=== PATIENT | female | born 1955 | race Caucasian/White ===

== ENCOUNTER 2018-08-14 12:54 | Outpatient (REF) | payer BC, SELFPAY ==
[2018-08-14 19:27] LABS: Anion Gap 9.3 mmol/L (3-11); BUN 13 mg/dL (7-18); CO2 29.7 mmol/L (21.0-32.0); CREATININE 0.94 mg/dL (0.55-1.02); Calcium 9.4 mg/dL (8.5-10.1); Chloride 101 mmol/L (98-107); Cholesterol 291 mg/dL (50-200); Glucose 92 mg/dL (70-100); HDL Cholesterol 48 mg/dL (40-60); LDL CHOLESTEROL 210 mg/dL (<100); Potassium 4.1 mmol/L (3.5-5.1); Sodium 140 mmol/L (136-145); Triglyceride 184 mg/dL (30-150)
== END 2018-08-14 13:14 ==
LOC: LBN 12:54
PROVIDERS: PCP Internal Medicine; Visit Provider Internal Medicine
DX: I10 Essential (primary) hypertension (principal); E78.5 Hyperlipidemia, unspecified
CPT/HCPCS: 80048; 80061; 83721

== ENCOUNTER 2021-06-09 01:54 | Outpatient (CLI) | payer MEDICARE, SELFPAY ==
--- NOTE | 2021-06-09 07:30 | DI.CT_ITS ---
Exam(s) CT ABDOMEN PELVIS W EXAM: CT ABDOMEN PELVIS W CLINICAL HISTORY: r/o diverticulitis,CHRONIC ABD PAIN,RECTAL BLEEDING,FREQ BOWEL MOVEMENTS TECHNIQUE: Imaging Protocol: Axial computed tomography images with coronal and sagittal reformatted images were created and reviewed CONTRAST MATERIAL: Intravenous: Omnipaque 350 Contrast volume:100 mL Oral: Yes COMPARISON: No exams were available for comparison FINDINGS: ABDOMEN: Lung Bases: There is a 0.5 cm noncalcified right lower lobe pulmonary nodule. Liver: There is fatty infiltration of the liver. There is a 0.8 x 1.0 hypodensity in the right lobe of the liver adjacent to the IVC. Portal, Superior Mesenteric, and Splenic Veins: Unremarkable. Gallbladder and Biliary Tract: No radiodense calculus or dilation. Pancreas: Normal density, no abnormal calcifications or inflammatory process. Spleen: Normal. Adrenals: No masses seen. Kidneys: Normal size, contour and axis. No radiodense stones or obstructive uropathy. No masses seen. Abdominal Aorta: Abdominal portion non-dilated. Atherosclerosis. Bowel: No evidence of bowel obstruction. Appendix is unremarkable. Diverticulosis of the sigmoid col on, but no evidence of diverticulitis. There is a moderate amount of stool throughout the colon. Th ere is concentric thickening of the wall of the distal stomach. Peritoneal Cavity: No ascites, collection or mesenteric inflammatory response. No free air. Lymph Nodes: Within normal limits. Bones: Within normal limits for the patient's age. Soft Tissues: Unremarkable. PELVIS: Bladder: The urinary bladder is not distended limiting evaluation. Reproductive Organs: Status post hysterectomy. Lymph Nodes: Within normal limits. Bones: Within normal limits for the patient's age. IMPRESSION: 1. Concentric thickening seen in the distal stomach. This may be due to underdistention, but inflamm atory/infectious process or mass cannot be excluded. Upper endoscopy or barium GI examination is rec ommended. 2. 0.8 x 1.0 cm hypodensity in the right lobe of the liver. This is nonspecific. Hepatic MRI is rec ommended for further evaluation. 3. 0.5 cm noncalcified right lower lobe pulmonary nodule. In low risk patients, no follow-up is valentin mmended. In high risk patients (history of smoking or other risk factors), a CT scan in 12 months is recommended for re-evaluation. RADIATION DOSE DELIVERED: 1,581.15mGy.cm Total DLP DATA REPOSITORY: All CT scans at this facility are submitted to the National Radiology Data Registry (NRDR) Dose Index Registry (DIR) with the [employer] (ACR). RADIATION OPTIMIZATION: All CT scans at this facility use at least one of these dose optimization te chniques: automated exposure control; mA and/or kV adjustment per patient size (includes targeted exa ms where dose is matched to clinical indication); or iterative reconstruction.
[2021-06-09] MEDS: Normal Saline - Diluent 50 ML VIAL IV (10:57)
[2021-06-09] MEDS: Omnipaque 350 MG/ML 100 ML BTL IJ (10:57)
[2021-06-09] MEDS: Breeza Beverage 473 ML BTL PO ×2 (10:58→10:59)
[2021-06-09] MEDS: Omnipaque 350 MG/ML 50 ML BTL PO (10:59)
== END 2021-06-09 02:14 ==
PROVIDERS: PCP Student in an Organized Health Care Education/Training Program; Visit Provider Student in an Organized Health Care Education/Training Program
DX: K62.5 Hemorrhage of anus and rectum (principal); R10.9 Unspecified abdominal pain; R19.4 Change in bowel habit; R91.1 Solitary pulmonary nodule; R93.5 Abnormal findings on diagnostic imaging of other abdominal regions, including retroperitoneum
CPT/HCPCS: 74177; J3490; Q9967

== ENCOUNTER 2021-07-22 11:51 | Outpatient (REF) | payer MEDICARE, SELFPAY ==
[2021-07-22 19:49] LABS: Abs Immature Grans 0.05 10^3/uL (0.0-0.06); Absolute Basophil Count 0.04 10^3/uL (0.0-0.2); Absolute Eosinophil Count 0.15 10^3/uL (0.0-0.7); Absolute Lymphocyte Count 2.04 10^3/uL (1.2-3.4); Absolute Monocyte Count 0.73 10^3/uL (0.1-0.8); Absolute Neutrophil Count 7.55 10^3/uL (1.2-6.7); Basophils % 0.4; Eosinophils % 1.4; HCT 37.9 % (36.0-46.0); HGB 11.9 g/dL (11.2-15.7); Immature Grans % 0.5; Lymphocytes % 19.3; MCH 29.2 pg (27.0-33.0); MCHC 31.4 % (32.0-36.0); MCV 92.9 fL (80-95); MPV 11.2 fL (8.0-11.0); Monocytes % 6.9; Neutrophils % 71.5; Nucleated RBC 0 %; Platelet Count 342 10^3/uL (130-400); RBC 4.08 10^6/uL (3.93-5.22); RDW 15.6 % (11.7-14.6); RDW-SD 53.1 fL; WBC 10.56 10^3/uL (4.4-10.8)
[2021-07-22 20:16] LABS: Iron 41 ug/dL (50-170); Total Iron Binding Capacity 487 ug/dL (250-450); Transferrin Sat 8 % (15-50)
[2021-07-22 20:27] LABS: ALT 57 U/L (14-59); AST 33 U/L (15-37); Albumin 3.7 g/dL (3.4-5.0); Alkaline Phosphatase 113 U/L (46-116); Anion Gap 6.2 mmol/L (3-11); BUN 14 mg/dL (7-18); Bilirubin, Total 0.3 mg/dL (0.2-1.0); CO2 32.8 mmol/L (21.0-32.0); CREATININE 0.8 mg/dL (0.55-1.02); Calcium 9.1 mg/dL (8.5-10.1); Chloride 102 mmol/L (98-107); Ferritin 23 ng/mL (8-252); Glucose 88 mg/dL (74-106); Magnesium 1.7 mg/dL (1.8-2.4); Potassium 4.3 mmol/L (3.5-5.1); Sodium 141 mmol/L (136-145); TSH 2.08 uIU/mL (0.36-3.74); Total Protein 7.6 g/dL (6.4-8.2)
== END 2021-07-22 11:52 | disposition home or self-care (01) ==
LOC: LBN 11:51
PROVIDERS: PCP Student in an Organized Health Care Education/Training Program; Visit Provider Student in an Organized Health Care Education/Training Program
DX: I10 Essential (primary) hypertension; K21.00 Gastro-esophageal reflux disease with esophagitis, without bleeding; R73.01 Impaired fasting glucose; G25.81 Restless legs syndrome; F41.9 Anxiety disorder, unspecified; R10.9 Unspecified abdominal pain; K76.0 Fatty (change of) liver, not elsewhere classified
CPT/HCPCS: 80053; 82728; 83540; 83550; 83735; 84443; 85025

== ENCOUNTER 2021-08-08 17:19 | Outpatient (REF) | payer MEDICARE, SELFPAY ==
[2021-08-09 13:15] LABS: COVID-19 RT-PCR UVMMC Result Negative (Negative)
== END 2021-08-08 17:20 | disposition home or self-care (01) ==
LOC: LBN 17:19
PROVIDERS: PCP Student in an Organized Health Care Education/Training Program; Visit Provider Physician Assistant
DX: Z20.822 Contact with and (suspected) exposure to COVID-19 (principal)
CPT/HCPCS: U0003; U0005

== ENCOUNTER → 2021-12-28 01:58 | Outpatient (CLI) | payer MEDICARE, SELFPAY ==
--- NOTE | 2021-12-28 07:15 | DI.RAD_ITS ---
Exam(s) XR CHEST 2V PA LATERAL EXAM: XR CHEST 2V PA LATERAL CLINICAL HISTORY: worsening pain,SOB,R06.02 TECHNIQUE: 2D digital imaging was performed. COMPARISON: No exams were available for comparison FINDINGS: MEDIASTINUM: Normal. HEART: Normal. PULMONARY VASCULATURE: Normal. LUNGS: Clear. PLEURAL SPACE: No pleural effusion or pneumothorax. BONE:Unremarkable for age. IMPRESSION: No acute abnormality. DATA REPOSITORY: RADIATION DOSE DELIVERED:
== END ==
PROVIDERS: PCP Student in an Organized Health Care Education/Training Program; Visit Provider Student in an Organized Health Care Education/Training Program
DX: R06.02 Shortness of breath (principal)
CPT/HCPCS: 71046

== ENCOUNTER 2021-12-28 04:58 | Outpatient (CLI) | payer MEDICARE, SELFPAY ==
[2021-12-28 13:07] LABS: HCT 37.9 % (36.0-46.0); MCH 28.8 pg (27.0-33.0); MCHC 31.7 % (32.0-36.0); MCV 91.1 fL (80-95); MPV 9.7 fL (8.0-11.0); Platelet Count 291 10^3/uL (130-400); RBC 4.16 10^6/uL (3.93-5.22); RDW-SD 53.3 fL; WBC 9.33 10^3/uL (4.4-10.8)
[2021-12-28 14:31] LABS: Iron 54 ug/dL (50-170); Total Iron Binding Capacity 466 ug/dL (250-450); Transferrin Sat 12 % (15-50)
[2021-12-28 15:01] LABS: Anion Gap 7.3 mmol/L (3-11); BUN 12 mg/dL (7-18); CO2 29.7 mmol/L (21.0-32.0); CREATININE 0.8 mg/dL (0.55-1.02); Chloride 102 mmol/L (98-107); Ferritin 28 ng/mL (8-252); Glucose 115 mg/dL (74-106); Potassium 3.7 mmol/L (3.5-5.1); Sodium 139 mmol/L (136-145)
== END 2021-12-28 04:59 | disposition home or self-care (01) ==
PROVIDERS: PCP Student in an Organized Health Care Education/Training Program; Visit Provider Student in an Organized Health Care Education/Training Program
DX: Z79.1 Long term (current) use of non-steroidal anti-inflammatories (NSAID); E61.1 Iron deficiency; Z87.19 Personal history of other diseases of the digestive system
CPT/HCPCS: 36415; 80048; 85027; 82728; 83540; 83550

== ENCOUNTER 2022-01-26 02:51 | Outpatient (RCR) | payer MEDICARE, SELFPAY ==
[2022-01-19] MEDS: Normal Saline Flush 10 ML SYR IVP (08:06)
[2022-01-19] MEDS: IRON SUCROSE COMPLEX 200 MG in Normal Saline 100 ML 440 MG IVPB (08:14)
[2022-01-26] MEDS: Normal Saline Flush 10 ML SYR IVP (08:06)
[2022-01-26] MEDS: IRON SUCROSE COMPLEX 200 MG in Normal Saline 100 ML 440 MG IVPB (08:28)
== END 2022-01-31 23:59 | disposition home or self-care (01) ==
LOC: INF 02:51
PROVIDERS: PCP Student in an Organized Health Care Education/Training Program; Visit Provider Student in an Organized Health Care Education/Training Program
DX: R79.0 Abnormal level of blood mineral (principal); R06.02 Shortness of breath; Z87.19 Personal history of other diseases of the digestive system; G25.81 Restless legs syndrome
CPT/HCPCS: 96365; J1756

== ENCOUNTER 2022-02-16 03:40 | Outpatient (RCR) | payer MEDICARE, SELFPAY ==
[2022-02-02] MEDS: IRON SUCROSE COMPLEX 200 MG in Normal Saline 100 ML 440 MG IVPB (08:09)
[2022-02-02] MEDS: Normal Saline Flush 10 ML SYR IVP (08:09)
[2022-02-09] MEDS: IRON SUCROSE COMPLEX 200 MG in Normal Saline 100 ML 440 MG IVPB (08:16)
[2022-02-09] MEDS: Normal Saline Flush 10 ML SYR IVP (08:16)
[2022-02-16] MEDS: Normal Saline Flush 10 ML SYR IVP (08:06)
[2022-02-16] MEDS: IRON SUCROSE COMPLEX 200 MG in Normal Saline 100 ML 440 MG IVPB (08:07)
== END 2022-03-02 23:59 | disposition home or self-care (01) ==
LOC: INF 03:40
PROVIDERS: PCP Student in an Organized Health Care Education/Training Program; Visit Provider Student in an Organized Health Care Education/Training Program
DX: R79.0 Abnormal level of blood mineral (principal); R79.89 Other specified abnormal findings of blood chemistry; R06.02 Shortness of breath; Z87.19 Personal history of other diseases of the digestive system; G25.81 Restless legs syndrome
CPT/HCPCS: 96365; J1756

== ENCOUNTER 2022-03-10 15:45 | Outpatient (CLI) | payer MEDICARE, SELFPAY ==
--- NOTE | 2022-03-10 11:00 | DI.RAD_ITS ---
Exam(s) XR CERVICAL SP COMP W FLEX/EXT EXAM: XR CERVICAL SP COMP W FLEX/EXT CLINICAL HISTORY: Neck pain/stiffness, torticollis, myalgia, M54.2, M43.6, M62.838, M79.18. TECHNIQUE: 2D digital imaging was performed. Views COMPARISON: No exams were available for comparison FINDINGS: There is no evidence of fracture or subluxation. There are prominent facet degenerative changes thro ughout which cause neural foraminal encroachment on the left at C3-4 and C4-5 and on the right side a t C3-4, C5-6 and C6-7. Degenerative changes are also seen at C1-2. There is mild narrowing of the C 6 7 disc space. IMPRESSION: advanced facet degenerative changes causing neural foraminal encroachment. DATA REPOSITORY: RADIATION DOSE DELIVERED:
--- NOTE | 2022-03-10 11:00 | DI.RAD_ITS ---
Exam(s) XR SHOULDER RT COMPLETE 2+V EXAM: XR SHOULDER RT COMPLETE 2+V CLINICAL HISTORY: Muscle spasm, rt deltoid pain, M62.838, M79.18. Evaluate joint spacing. TECHNIQUE: 2D digital imaging was performed. Five views. COMPARISON: No exams were available for comparison FINDINGS: BONES: No acute fracture is present. No bony destructive lesion is seen. JOINTS: No dislocation present. Mild spurring at the glenoid and AC joint. SOFT TISSUE: Normal. Calcifications project near the greater tuberosity. IMPRESSION: Mild degenerative changes. Question of calcific tendinosis. DATA REPOSITORY: RADIATION DOSE DELIVERED:
== END 2022-03-10 16:05 ==
LOC: DI 15:47
PROVIDERS: PCP Student in an Organized Health Care Education/Training Program; Visit Provider Student in an Organized Health Care Education/Training Program
DX: M19.011 Primary osteoarthritis, right shoulder (principal); M47.812 Spondylosis without myelopathy or radiculopathy, cervical region; M43.6 Torticollis; M79.18 Myalgia, other site
CPT/HCPCS: 72052; 73030

== ENCOUNTER 2022-03-16 02:40 | Outpatient (CLI) | payer MEDICARE, SELFPAY ==
[2022-03-16 15:57] LABS: Iron 61 ug/dL (50-170); Total Iron Binding Capacity 416 ug/dL (250-450); Transferrin Sat 15 % (15-50)
== END 2022-03-16 02:41 | disposition home or self-care (01) ==
LOC: LBO 02:41
PROVIDERS: PCP Student in an Organized Health Care Education/Training Program; Referring Provider Student in an Organized Health Care Education/Training Program; Visit Provider Student in an Organized Health Care Education/Training Program
DX: R79.0 Abnormal level of blood mineral (principal)
CPT/HCPCS: 36415; 83540; 83550

== ENCOUNTER 2022-04-10 02:36 | Outpatient (CLI) | payer MEDICARE, SELFPAY ==
--- NOTE | 2022-04-10 06:45 | DI.MRI_ITS ---
Exam(s) MR CERVICAL SPINE WO EXAM: MR CERVICAL SPINE WO CLINICAL HISTORY: evaluate foraminal stenosis 2' radiculopathy sympTOMS,CERV ARTHRITIS,NUMBNE TECHNIQUE: Multiplanar multisequence MRI of the cervical spine was performed without intravenous con trast. COMPARISON: CR XR CERVICAL SP COMP W FLEX/EXT from 03/10/2022 FINDINGS: CERVICOMEDULLARY JUNCTION: Intact with no evidence of cerebellar tonsillar ectopia. No obvious abnor mality of the odontoid process. No evidence of Chiari 1 malformation. CERVICAL SPINAL CORD: There is no abnormal signal in the cervical spinal cord and no evidence of foca l cord atrophy nor focal cord swelling. OSSEOUS:There are no cervical fractures evident. No significant osseous lesions in the cervical vert ebrae. There appears to be straightening of the cervical spine which is probably due to muscle spasm . INDIVIDUAL LEVELS: C2-3: No disc herniation nor central canal stenosis. No foraminal stenosis. There is facet joint fus ion evident on the right side at this level. Mild right-sided foraminal stenosis noted. No foramina l stenosis on the left side. C3-4: Normal disc height. Very mild degenerative anterolisthesis of C 3 upon C4.This is related to a dvanced bilateral facet arthropathy. There is mild subligamentous central annular bulging at this le miranda without significant central canal stenosis. There is, however, moderate bilateral foraminal sten osis, mostly related to the bilateral facet arthropathy. C4-5: Preserved disc height. No disc herniation. No central canal stenosis. On the left side there is minimal facet arthropathy and no foraminal stenosis. On the right side there is prominent facet arthropathy and mild foraminal stenosis. C5-6: Mildly decreased disc height. Mild annular bulging. Small bilateral Luschka joint osteophyte- disc complexes. No central canal stenosis. There is significant facet arthropathy on the left side ; milder facet arthropathy on the right side. Mild foraminal stenosis on the left side. Minimal for aminal stenosis on the right side. C6-7: Chronic decreased disc height and signal. Anterior osteophytes. There is a central subligamen tous disc protrusion. This indents the thecal sac and contacts the anterior aspect of the spinal cor d at this level. There does not appear to be myelitis signal within the cord at this level. There a re bilateral Luschka joint-disc complex is at this level. On the left side there appears to be a lat eral left disc protrusion at the level of the exiting left neural foramen which extends posteriorly 2 millimeters and is approximately 4 millimeters wide. This is best seen on the sagittal T2 images. This, together with some degenerative change in the facet joint, results in moderate left-sided ortiz inal stenosis at this level. There is mild foraminal stenosis on the opposite-right side. C7-T1: No disc herniation nor central canal stenosis. No facet arthropathy.No foraminal stenosis. IMPRESSION: 1. Multilevel findings as described individually above. Main finding is at C6-7 level where common a ddition to chronic disc space narrowing and bilateral Luschka joint-disc complexes, there also appear s to be a lateral left disc protrusion at the level of the exiting left neural foramen, resulting in element of left-sided foraminal stenosis. At this level there is also a central subligamentous small disc protrusion which does indent the anterior aspect of the thecal sac and contacts the anterior as pect of the cervical spinal cord, however, there is no evidence of myelitis signal within the cord. Also no evidence of focal cord swelling nor focal cord atrophy. 2. Asymmetric multilevel foraminal stenosis as described above. 3. No evidence of prominent central spinal canal stenosis. DATA REPOSITORY:
== END 2022-04-10 02:56 ==
LOC: DI 02:36
PROVIDERS: PCP Student in an Organized Health Care Education/Training Program; Visit Provider Student in an Organized Health Care Education/Training Program
DX: M47.812 Spondylosis without myelopathy or radiculopathy, cervical region (principal); R20.0 Anesthesia of skin; R20.2 Paresthesia of skin; M48.02 Spinal stenosis, cervical region
CPT/HCPCS: 72141

== ENCOUNTER → 2022-04-12 09:33 | Outpatient (BNVA) | payer MEDICARE, SELFPAY | PROVIDERS: PCP Student in an Organized Health Care Education/Training Program; Referring Provider Student in an Organized Health Care Education/Training Program; Visit Provider Student in an Organized Health Care Education/Training Program | DX: M75.101 Unspecified rotator cuff tear or rupture of right shoulder, not specified as traumatic (principal); M75.21 Bicipital tendinitis, right shoulder | CPT/HCPCS: 99204 ==

== ENCOUNTER 2022-04-28 00:25 | Outpatient (CLI) | payer MEDICARE, SELFPAY ==
--- NOTE | 2022-04-28 07:00 | DI.MRI_ITS ---
Exam(s) MR UPPER JOINT RT WO EXAM: MR UPPER JOINT RT WO CLINICAL HISTORY: WEAKNESS, pain, rt rotator cuff tear,m75.101 TECHNIQUE: Multiplanar multisequence MRI of the shoulder was performed. COMPARISON: CR XR SHOULDER RT COMPLETE 2+V from 03/10/2022 FINDINGS: Images are significantly degraded by motion artifact, particularly the sagittal images. MARROW:There is no evidence of fracture, Hill-Sachs deformity, nor ominous osseous lesions. ROTATOR CUFF MECHANISM: AC JOINT/ACROMIUM: There are significant degenerative changes in the AC joint, including degenerative subarticular cysts on both sides the joint and somewhat perched feet undersurface tissue causing bhumika e impingement.. There is no evidence of os acromiale. Supraspinatus: There is some tendinitis signal. Focus of partial thickness tearing on the articular surface side at the level of the greater tuberosity insertion. No retraction musculotendinous juncti on. No fluid in the subacromial-subdeltoid bursa Infraspinatus: Also exhibits partial-thickness tearing on the articular surface side. Teres Minor: Intact. No evidence of tear nor muscle atrophy. Subscapularis/anterior cuff: Some tendinitis signal. BICEPS TENDON: Normally position in the intertubercular groove. No evidence of tear. No prominent tenosynovitis. LABRUM: Labrum is difficult to assess because of motion artifact. However, there are no obvious labr al tears and no evidence of paralabral cyst. No evidence of bony Bankart lesion. GLENOHUMERAL JOINT: No joint effusion nor obvious loose intra-articular bodies. No obvious prominent chondral defects. No osteophytes. No degenerative subarticular cysts. Inferior glenohumeral ligame nt appears intact. QUADRILATERAL SPACE: No evidence of mass in the region of the axillary nerve and dorsal circumflex hu meral vessels. Visualized triceps muscle at this level appears unremarkable. IMPRESSION: 1. Less than optimal study due to the amount of motion artifact. 2. There appear to be partial-thickness tears of both the supraspinatus and infraspinatus at the inse rtional aspect on the greater tuberosity. No obvious full-thickness tear. No retraction musculotend inous junction. No prominent muscle atrophy. There is also some tendinitis signal in the anterior c uff-subscapularis. 3. Significant degenerative changes in the AC joint. 4. No biceps tendon tear nor obvious labral tears, realized limitations of the study due to the amou nt of motion artifact. DATA REPOSITORY:
== END 2022-04-28 00:45 ==
LOC: DI 00:25
PROVIDERS: PCP Student in an Organized Health Care Education/Training Program; Visit Provider Student in an Organized Health Care Education/Training Program
DX: M19.011 Primary osteoarthritis, right shoulder (principal)
CPT/HCPCS: 73221

== ENCOUNTER → 2022-05-10 10:01 | Outpatient (BNVA) | payer MEDICARE, SELFPAY | PROVIDERS: PCP Student in an Organized Health Care Education/Training Program; Referring Provider Student in an Organized Health Care Education/Training Program; Visit Provider Student in an Organized Health Care Education/Training Program | DX: E66.01 Morbid (severe) obesity due to excess calories (principal); Z68.43 Body mass index [BMI] 50.0-59.9, adult; M75.101 Unspecified rotator cuff tear or rupture of right shoulder, not specified as traumatic; M75.21 Bicipital tendinitis, right shoulder | CPT/HCPCS: 99213 ==

== ENCOUNTER 2022-07-03 01:51 | Outpatient (CLI) | payer MEDICARE, SELFPAY ==
--- NOTE | 2022-07-03 06:30 | DI.CT_ITS ---
Exam(s) CT CHEST WO EXAM: CT CHEST WO CLINICAL HISTORY: evaluate nodule,ABNL FINDING ON IMAGING, R93.89,R91.1 TECHNIQUE: Imaging Protocol: Axial computed tomography images with coronal and sagittal reformatted images were created and reviewed CONTRAST MATERIAL: Noncontrast COMPARISON: CT CT ABDOMEN PELVIS W from 06/09/2021 FINDINGS: Tracheobronchial tree: No bronchiectasis or mucous plugging. Mediastinum and Wendy: No dominant adenopathy or fluid collection. Pulmonary parenchyma: Stable 5 millimeter nodule inferior right lower lobe. No consolidation. Minima l emphysematous changes. Pleura: No effusion or pneumothorax. Heart: The heart is not dilated. Mild coronary artery calcifications are seen. Aorta: Thoracic aorta non-dilated. Mild atherosclerotic changes Upper abdomen: Hepatic steatosis. Lymph nodes: Within normal limits. Bones: Milddegenerative changes. Soft tissues: Unremarkable. IMPRESSION: Stable 5 millimeter nodule right lower lobe. If the patient is at high risk for lung cancer, a low-dose screening chest CT could be considered in 12 months. RADIATION DOSE DELIVERED: Total DLP DATA REPOSITORY: All CT scans at this facility are submitted to the National Radiology Data Registry (NRDR) Dose Index Registry (DIR) with the [employer] (ACR). RADIATION OPTIMIZATION: All CT scans at this facility use at least one of these dose optimization te chniques: automated exposure control; mA and/or kV adjustment per patient size (includes targeted exa ms where dose is matched to clinical indication); or iterative reconstruction.
== END 2022-07-03 02:11 ==
LOC: DI 01:52
PROVIDERS: PCP Student in an Organized Health Care Education/Training Program; Visit Provider Student in an Organized Health Care Education/Training Program
DX: R91.1 Solitary pulmonary nodule (principal); R93.89 Abnormal findings on diagnostic imaging of other specified body structures; J43.8 Other emphysema
CPT/HCPCS: 71250

== ENCOUNTER 2023-01-18 02:52 | Outpatient (CLI) | payer MEDICARE, SELFPAY ==
[2023-01-18 07:38] LABS: HGB 14.6 g/dL (11.2-15.7)
[2023-01-18 08:56] LABS: ALT 58 U/L (14-59); AST 35 U/L (15-37); Albumin 3.7 g/dL (3.4-5.0); Alkaline Phosphatase 104 U/L (46-116); Anion Gap 11.2 mmol/L (3-11); BUN 14 mg/dL (7-18); Bilirubin, Total 0.4 mg/dL (0.2-1.0); CO2 26.8 mmol/L (21.0-32.0); Calcium 9.1 mg/dL (8.5-10.1); Calculated LDL 131 mg/dL (<100); Chloride 103 mmol/L (98-107); Cholesterol 203 mg/dL (<200); Estimated GFR 61.36 (mL/min/1.73m2); Ferritin 92 ng/mL (8-252); Glucose 134 mg/dL (74-106); HDL Cholesterol 46 mg/dL (40-60); Magnesium 1.6 mg/dL (1.8-2.4); Potassium 3.9 mmol/L (3.5-5.1); Sodium 141 mmol/L (136-145); Total Protein 8.2 g/dL (6.4-8.2); Triglyceride 130 mg/dL (<150)
[2023-01-18 09:09] LABS: Hemoglobin A1C 6.7 % (<5.7)
== END 2023-01-18 02:53 | disposition home or self-care (01) ==
PROVIDERS: PCP Student in an Organized Health Care Education/Training Program; Visit Provider Student in an Organized Health Care Education/Training Program
DX: I10 Essential (primary) hypertension (principal); E78.2 Mixed hyperlipidemia; K76.0 Fatty (change of) liver, not elsewhere classified; R73.09 Other abnormal glucose; R60.0 Localized edema
CPT/HCPCS: 36415; 80053; 80061; 82728; 83036; 83735; 85018

== ENCOUNTER 2023-03-30 | Outpatient (CLI) | payer MEDICARE, SELFPAY ==
--- NOTE | 2023-03-30 07:00 | DI.US_ITS ---
APPROVED REPORT EXAM: Comprehensive 2D, Doppler, and color-flow Echocardiogram Patient Location: Out-Patient Poultry Scalder: Esequiel Ugalde RDCS Other Information Study Quality: Adequate Conclusion Normal left ventricular wall thickness and chamber size. Ejection fraction is 55 to 60%. Wall motio n is normal Normal right ventricular size and systolic function Both atria are normal in size Aortic valve is sclerotic. Number of aortic valve leaflets could not be accurately determined. Ther e is no aortic stenosis or regurgitation Right ventricular systolic pressure could not be estimated Wall motion Left Ventricle The left ventricle is normal size. The left ventricular systolic function is normal. The left ventric ular ejection fraction is within the normal range. There is normal left ventricular wall thickness. T here is normal LV segmental wall motion. There is no ventricular septal defect visualized. LVEF is 55 -60%. Right Ventricle The right ventricle is normal size. The right ventricular systolic function is normal. Unable to asse ss PA pressure. Atria The left atrium size is normal. The right atrium size is normal. The interatrial septum is intact wit h no evidence for an atrial septal defect. Aortic Valve The Aortic valve is sclerotic. Number of aortic valve leaflets could not be assessed. There is no aor tic valvular stenosis. No aortic regurgitation is present. Mitral Valve The mitral valve is normal in structure. No evidence of mitral valve stenosis. Trace mitral regurgita tion. Tricuspid Valve The tricuspid valve is normal in structure. There is no tricuspid valve stenosis. Trace tricuspid reg urgitation. Pulmonic Valve The pulmonary valve is normal in structure. There is no pulmonic valvular stenosis. There is no pulmo melyssa valvular regurgitation. Great Vessels The aortic root is normal in size. Ascending aorta is normal in caliber. Aortic arch is normal in sheridan iber. IVC is normal in size and collapses >50% with inspiration. Pericardium There is no pericardial effusion. 2D Dimensions IVSD d PLAX 0.68 cm F: 0.6-1.0 LV Vol A2C d MOD 88.4 mL LVPW d PLAX 0.69 cm F: 0.6 - 1.0 LV Vol A4C d MOD 100.0 mL LVID d PLAX 4.35 cm F: 3.8 - 5.2 LA vol/ BSA A4C s A-L 18.5 mL/m2 LVDs 3.00 cm F: 2.2 - 3.5 LA Area A4C s MOD 16.94 cm2 Ao Root d 2.84 cm F: 2.7 - 3.3 LV EF A4C MOD 56.4 % Ao Asc Diam d 2.98 cm F: 2.3 - 3.1 LV EF A2C MOD 55.5 % LV EF Teichholz 58.6 % LV EF Biplane MOD 54.7 % LVEF (Montero's) 54.74 % F: 54 - 74 SV 51.99 mL LV Volume 68.30 mL F: 46 - 106 SV Index 22.79 mL/m2 LV Volume Index 29.95 mL/m2 F: 29 - 61 LV Vol Biplane MOD 95.0 mL FS 30.75 % M-Mode TAPSE 1.74 cm (M/F) >1.7 LV Diastology MV E' medial 0.140 (>0.07 m/s) E/A Ratio 0.7 LV E/e MED 4.60 (<14) MV E Vmax 0.65 (0.4-1.3 m/s) MV E' lateral 0.112 (>0.1 m/s) MV A Vmax 0.95 (0.4-1.3 m/s) LV E/e LAT 5.75 (<14) MV E/A Ratio 0.68 MV E/E' medial 4.64 MV E/E' lateral 5.78 Aortic Valve LVOT Area 3.87 cm2 AoV Area Vmax 3.04 cm2 LVOT Vmax 1.19 m/s AoV Area/ BSA (Vmax) 1.33 cm2/m2 LVOT Mean Boni. 0.73 m/s CRISTA Mean Boni. 2.65 cm2 LVOT Peak Grad 5.7 mmHg CRISTA Mean Boni. Index 1.16 cm2/m2 LVOT Mean Grad 2.6 mmHg LVOT VTI 0.262 m LVOT Diam s 2.20 cm AoV Vmax 1.52 m/s Velocity Ratio 0.78 AoV Mean Boni. 1.07 m/s AoV Peak Grad 9.3 mmHg LVOT SV 101.45 mL AoV Mean Grad 5.3 mmHg AoV VTI 0.279 m AoV Area VTI 3.63 cm2 AoV Area/ BSA (VTI) 1.59 cm/m2 Mitral Valve MV DT 244 (160-240 msec) MV PHT 71 msec MV Area PHT 3.10 cm2 MV VTI 0.252 m MV Area VTI 4.02 (4.0-6.0 cm2) Pulmonary Valve PV Vmax 1.16 (0.5-1.5 m/s) RVOT Peak Gr. 2.46 mmHg PV Peak Grad 5.4 mmHg RVOT Mean Gr. 1.25 mmHg PV Mean Grad 2.4 mmHg RVOT VTI 0.172 m PV VTI 0.224 m RVOT Vmax 0.78 m/s Tricuspid Valve RA Pressure 3.00 mmHg
== END 2023-03-30 00:20 ==
LOC: DI 00:01
PROVIDERS: PCP Student in an Organized Health Care Education/Training Program; Visit Provider Student in an Organized Health Care Education/Training Program
DX: I10 Essential (primary) hypertension (principal); R60.9 Edema, unspecified
CPT/HCPCS: 93306

== ENCOUNTER → 2023-06-13 00:27 | Outpatient (CLI) | payer MEDICARE, SELFPAY ==
--- NOTE | 2023-06-13 08:51 | DI.CTLCSR_ITS ---
Exam(s) CT CHEST LUNG CANCER SCREEN EXAM: CT CHEST LUNG CANCER SCREEN CLINICAL HISTORY: Screening for lung cancer,FORMER SMOKER, Z87.891,F/U 5 MM NODULE TECHNIQUE: Imaging Protocol: Axial computed tomography images with coronal and sagittal reformatted images were created and reviewed. Low dose screening protocol. COMPARISON: CT CT CHEST WO from 07/03/2022 FINDINGS: Tracheobronchial tree: No bronchiectasis or mucus plugging.. Mediastinum and Wendy: No dominant adenopathy or fluid collection. Pulmonary parenchyma: No consolidation or dominant measurable mass. Minimal emphysematous changes. Lung Nodules: Stable 5 millimeter nodule right lower lobe. Stable right-sided perifissural nodules. Pleura: No effusion. No pneumothorax. Heart: The heart is not dilated. Moderate coronary artery calcifications are seen. Aorta: Thoracic aorta non-dilated. Upper abdomen: Unremarkable. Bones: Unremarkable for age. Soft Tissues: Unremarkable. IMPRESSION: Stable small pulmonary nodules. Lung RADS Cat 2 - Benign Appearance / Behavior: Nodules with a very low likelihood of becoming a clin ically active cancer due to size or lack of growth Lung-RADS 1.0 CATEGORIES: Category 0 - Prior chest CT exam(s) being located for comparison. Category 1 - Annual screening in 12 months. No nodules or definitely benign nodules. Category 2 - Annual screening in 12 months. Benign appearance. Nodules with low likelihood of becomin g active cancer. Category 3 - 6-month follow-up. Probably benign. Short-term follow-up suggested. Nodules with low lik elihood of becoming active cancer. Category 4A - 3-month follow-up and CT/PET if >8 mm in size. Suspicious finding. Findings which requi re additional testing. Category 4B - Findings which require additional testing and tissue sampling. Category 4X - Category 3 or 4 nodules with additional features or imaging findings that increases the suspicion of malignancy. Modifier S- Potentially clinically significant findings (non lung cancer) RADIATION DOSE DELIVERED: Total DLP DATA REPOSITORY: All CT scans at this facility are submitted to the National Radiology Data Registry (NRDR) Dose Index Registry (DIR) with the [employer] (ACR). RADIATION OPTIMIZATION: All CT scans at this facility use at least one of these dose optimization te chniques: automated exposure control; mA and/or kV adjustment per patient size (includes targeted exa ms where dose is matched to clinical indication); or iterative reconstruction.
== END ==
PROVIDERS: PCP Student in an Organized Health Care Education/Training Program; Visit Provider Student in an Organized Health Care Education/Training Program
DX: Z87.891 Personal history of nicotine dependence (principal); Z12.2 Encounter for screening for malignant neoplasm of respiratory organs; R91.1 Solitary pulmonary nodule
CPT/HCPCS: 71271

== ENCOUNTER 2024-01-03 04:57 | Outpatient (CLI) | payer MEDICARE, SELFPAY ==
[2024-01-03 13:37] LABS: HGB 12.7 g/dL (11.2-15.7)
[2024-01-03 13:50] LABS: Anion Gap 10.3 mmol/L (3-11); BUN 19 mg/dL (7-18); CO2 30.7 mmol/L (21.0-32.0); CREATININE 1.3 mg/dL (0.55-1.02); Calcium 8.5 mg/dL (8.5-10.1); Chloride 102 mmol/L (98-107); Estimated GFR 44.51 (mL/min/1.73m2); Glucose 150 mg/dL (74-106); Magnesium 1.3 mg/dL (1.8-2.4); Potassium 3.5 mmol/L (3.5-5.1); Sodium 143 mmol/L (136-145)
[2024-01-03 14:18] LABS: Vitamin D 25 Total 25.7 ng/mL (30-100)
== END 2024-01-03 04:58 | disposition home or self-care (01) ==
LOC: LBO 04:57
PROVIDERS: PCP Student in an Organized Health Care Education/Training Program; Visit Provider Student in an Organized Health Care Education/Training Program
DX: Z91.89 Other specified personal risk factors, not elsewhere classified (principal); Z86.2 Personal history of diseases of the blood and blood-forming organs and certain disorders involving the immune mechanism; I10 Essential (primary) hypertension; Z79.899 Other long term (current) drug therapy; N28.9 Disorder of kidney and ureter, unspecified
CPT/HCPCS: 36415; 80048; 82306; 83735; 85018

== ENCOUNTER 2024-02-19 13:35 | Outpatient (CLI) | payer MEDICARE, SELFPAY ==
--- NOTE | 2024-02-19 13:30 | RT.EKG_ITS ---
APPROVED REPORT Exam: Resting ECG Reason for Exam: pre op exam Patient Location: O HR:80 bpm ECG Measurements Heart Rate 80 AXIS NC 203 P 7 QRSd 92 QRS 19 QT 370 T 37 QTc 427 Conclusion Sinus rhythm...normal P axis, V-rate 50- 99 Low voltage, precordial leads...precordial leads <1.0mV Otherwise normal ECG
== END 2024-02-19 13:36 | disposition home or self-care (01) ==
PROVIDERS: PCP Student in an Organized Health Care Education/Training Program; Visit Provider Nurse Practitioner
DX: Z01.818 Encounter for other preprocedural examination (principal)
CPT/HCPCS: 93010

== ENCOUNTER 2024-02-19 16:12 | Outpatient (CLI) | payer MEDICARE, SELFPAY ==
[2024-02-19 14:47] LABS: HCT 41.5 % (36.0-46.0); HGB 13.7 g/dL (11.2-15.7); MCH 30.8 pg (27.0-33.0); MCV 93 fL (80-95); Platelet Count 292 10^3/uL (130-400); RBC 4.45 10^6/uL (3.93-5.22); RDW 13.5 % (11.7-14.6); WBC 11.53 10^3/uL (4.4-10.8)
[2024-02-19 15:05] LABS: ALT 21 U/L (14-59); AST 14 U/L (15-37); Albumin 3.7 g/dL (3.4-5.0); Alkaline Phosphatase 95 U/L (46-116); Anion Gap 11.3 mmol/L (3-11); BUN 18 mg/dL (7-18); Bilirubin, Total 0.4 mg/dL (0.2-1.0); CO2 26.7 mmol/L (21.0-32.0); CREATININE 1.2 mg/dL (0.55-1.02); Calcium 9.3 mg/dL (8.5-10.1); Chloride 100 mmol/L (98-107); Glucose 101 mg/dL (74-106); PTT Activated 25.2 sec (23.6-32.8); Potassium 3.6 mmol/L (3.5-5.1); Prothrombin Time 10.1 sec (9.1-11.1); Sodium 138 mmol/L (136-145); Total Protein 8.4 g/dL (6.4-8.2)
[2024-02-19 16:03] LABS: Bilirubin Negative (Negative); Blood Negative (Negative); Clarity Clear (Clear); Glucose Negative (Negative); Ketones Negative (Negative); Leukocyte Esterase Trace (Negative); Nitrite Negative (Negative); Specific Gravity 1.015 (1.005-1.025); Urobilinogen 0.2 mg/dL (Up to 0.2)
--- OUTSIDE RECORDS SUMMARY | 2024-02-19 16:15 | XMS_ITS | Continuity of Care Document ---
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 Name Role Phone FRANDY MASON Primary Care Physician Encounter LTTL_DC FIN NBR [id number] Date(s): 01/03/24 - 01/03/[address] [address]- [place] Discharge Disposition: Home or Self Care Attending Physician: Chas Montoya DO (Bernie) Admitting Physician: Chas Montoya DO (Bernie) Referring Physician: Chas Montoya DO (Bernie) Allergies, Adverse Reactions, Alerts Substance Reaction Severity Status amLODIPine Unknown Unknown Active dilTIAZem Unknown Unknown Active Assessment and Plan Future Appointments Future Scheduled Tests Radiology* MRI Spine Cervical w/o Contrast 07/13/23 * XR Spine Cervical 4 or 5 Views 07/13/23 Medications buPROPion 300 mg/24 hours (XL) oral tablet, extended release TAKE 1 TABLET (300 MG) BY MOUTH ONCE DAILY IN THE MORNING, MAX DAILY DOSE 300 MG, CONTINUE WITH 300MG NOW A SINGLE TABLET Start Date: 07/13/23 Status: Ordered furosemide 40 mg oral tablet TAKE 1 TABLET (40 MG) BY MOUTH ONCE DAILY (DOSE INCREASE) Start Date: 07/13/23 Status: Ordered irbesartan-hydrochlorothiazide 150mg-12.5mg oral tablet TAKE 1 TABLET BY MOUTH TWICE DAILY (RESTART INSTEAD OF LISINOPRIL) Start Date: 07/13/23 Status: Ordered omeprazole 40 mg oral delayed release capsule TAKE 1 CAPSULE BY MOUTH ONCE DAILY Start Date: 07/13/23 Status: Ordered Ozempic 2 mg/3 mL (0.25 mg or 0.5 mg dose) subcutaneous solution INJECT 0.25MG SUBCUTANEOUSLY EVERY WEEK FOR 4 WEEKS. INCREASE TO 0.5MG PER D/W PCP FOR 4 WEEKS Start Date: 07/13/23 Status: Ordered rOPINIRole 2 mg oral tablet TAKE 1 TABLET BY MOUTH TWICE DAILY TAKE 1 TABLET BY MOUTH IN THE MORNING AND 1 TABLET BY MOUTH IN THE EVENING Start Date: 07/13/23 Status: Ordered Problem List Condition Confirmation Course Effective Dates Status H ealth Status Informant Cervical spondylosis with radiculopathy Confirmed Active Balance problem Confirmed Active Weakness of left upper extremity Confirmed Active Cervicalgia Confirmed Active Paresthesias Confirmed Active Sciatica Confirmed Active Results Radiology Reports * Exam Date Time Procedure Performing Provider Status 01/03/24 10:21 AM MRI Spine Lumbar w/o Contrast Katie Brock; Kaela (Verified) Notes: (MRI Spine Lumbar w/o Contrast) Reason For Exam: low back pain MRI Spine Lumbar w/o Contrast EXAM DESCRIPTION: MRI Spine Lumbar w/o Contrast 01/03/2024 INDICATION: LOW BACK PAIN TECHNIQUE: Multiplanar MRI examination of the lumbar spine utilizing T1, fat-suppressed T2 and fast STIR technique. COMPARISON: None FINDINGS: Grade 1 anterolisthesis at L4-5. Lumbar lordosis is otherwise satisfactory with no scoliosis L5-S1: Broad-based right paracentral disc extrusion with mild bilateral facet hypertrophy. Mild right lateral recess stenosis. No significant central stenosis or thecal sac deformity with AP spinal canal diameter of 14 mm. No neural foraminal narrowing. L4-5: Mild diffuse disc bulge with bilateral facet and ligamentum flavum hypertrophy. No significant spinal stenosis with AP spinal canal diameter of 11 mm. Mild bilateral neural foraminal narrowing L3-4: No focal disc protrusion, significant spinal stenosis or neural foraminal narrowing. L2-3: No focal disc protrusion, significant spinal stenosis or neural foraminal narrowing. L1-2: No focal disc protrusion, significant spinal stenosis or neural foraminal narrowing. No significant stenosis in the visualized lower thoracic spine. The conus is normal in morphology and signal intensity and terminates at the L1 level. No suspicious regional marrow lesions. No vertebral body compression deformity in the lumbar region Paraspinal soft tissues are unremarkable. IMPRESSION: Mild spondylotic changes in the lower lumbar region. No significant central stenosis. Mild right lateral recess stenosis at L5-S1. Mild bilateral neural foraminal narrowing at L4-5. Please see above discussion for individual level description. Normal conus. JOB #: [id number] Final Signed by: Noé Gallego MD Signed (Electronic Signature): 01/03/2024 1:39 pm Social History Social History Type Response Tobacco Former tobacco user Tobacco Use:. Sex Patient Care team information Care Team Personnel Name: FRANDY MASON Position: No Access Member Role: Primary Care Physician Address: Address: [address] [place] [id number]- Care Team Related Persons Name: JHOANA ORDAZ
--- OUTSIDE RECORDS SUMMARY | 2024-02-19 16:15 | XMS_ITS | Continuity of Care Document ---
Author Name Unknown Organization [facility] Ambulatory Clinics Address [address] [place] [address] Care Team Providers Care Head Cd Reactor Operator Name Role Phone FRANDY MASON Primary Care Physician Encounter [facility] NBR [id number] Date(s): 12/28/23 - 12/28/23 [facility] Ambulatory Clinics [address] [place] [address]- Discharge Disposition: Home Allergies, Adverse Reactions, Alerts Substance Reaction Severity Status amLODIPine Unknown Unknown Active dilTIAZem Unknown Unknown Active Assessment and Plan Future Appointments Future Scheduled Tests Radiology* MRI Spine Cervical w/o Contrast 07/13/23 * MRI Spine Lumbar w/o Contrast 01/03/24 * XR Spine Cervical 4 or 5 [...] Condition Confirmation Course Effective Dates Status H ealt Status Informant Cervical spondylosis with radiculopathy Confirmed Active Balance problem Confirmed Active Weakness of left upper extremity Confirmed Active Cervicalgia Confirmed Active Paresthesias Confirmed Active Sciatica Confirmed Active Social History Social History Type Response Tobacco Former tobacco user Tobacco Use:. Sex Patient Care team information Care Team Personnel Name: FRANDY MASON Position: No Access Member Role: Primary Care Physician Address: Address: [address] [place] [id number] [place]
--- OUTSIDE RECORDS SUMMARY | 2024-02-19 16:15 | XMS_ITS | Continuity of Care Document ---
Author Name Unknown Organization [facility] Ambulatory Clinics Address [address] [place] [address] Care Team Providers Care Enroller Name Role Phone FRANDY MASON Primary Care Physician Encounter [facility] NBR [id number] Date(s): 07/13/23 - 07/13/23 [facility] Ambulatory Clinics [address] [place], [place] [address] Encounter Diagnosis Cervicalgia(Discharge Diagnosis) - 07/13/23 Other chronic pain(Discharge Diagnosis) - 07/13/23 Cervical spondylosis with radiculopathy(Discharge Diagnosis) - 07/13/23 Balance problem(Discharge Diagnosis) - 07/13/23 Weakness of left upper extremity(Discharge Diagnosis) - 07/13/23 Acid reflux(Discharge Diagnosis) - 07/13/23 Arthritis(Discharge Diagnosis) - 07/13/23 High blood pressure(Discharge Diagnosis) - 07/13/23 Chronic pain(Discharge Diagnosis) - 07/13/23 Chronic headaches(Discharge Diagnosis) - 07/13/23 Paresthesias(Discharge Diagnosis) - 07/13/23 Discharge Disposition: Home or Self Care Attending Physician: CHANDLER Bradley Referring Physician: FRANDY MASON Allergies, Adverse Reactions, Alerts Substance Reaction Severity Status amLODIPine Unknown Unknown Active dilTIAZem Unknown Unknown Active Assessment and Plan Future Scheduled Tests Radiology* MRI Spine Cervical [...] Active Cervicalgia Confirmed Active Paresthesias Confirmed Active Vital Signs Most recent to oldest [Reference Range]: 1 Temperature Temporal Artery [36-38 Deg C ] 36.4 Deg C (07/13/23 10:09 AM) Peripheral Pulse Rate [60-100 bpm] 73 bp m (07/13/23 10:09 AM) Blood Pressure [90-140/60-90 mmHg] 122/7 0mmHg (07/13/23 10:09 AM) Mean Arterial Pressure, Cuff [70-110 mmH g] 87 mmHg (07/13/23 10:09 AM) Weight 136.0 kg (07/13/23 10:09 AM) Weight Measured (lbs) 299.828 lb (07/13/23 10:09 AM) Weight Dosing 136.000 kg (07/13/23 10:09 AM) [place] Body Weight Calculated 54.7 kg (07/13/23 10:09 AM) Height 162.56 cm (07/13/23 10:09 AM) Height/Length Measured (inches) 64 inch (07/13/23 10:09 AM) Body Mass Index 51.46 kg/m2 (07/13/23 10:09 AM) Social History Social History Type Response Tobacco Former tobacco user Tobacco Use:. Sex Physician Outpatient Note * Rashmi Lim, ANDERW-CPA TAX: PERFORM Event Display: Office Clinic Note Physician Authored Date: [id number] RAFAT ORDAZ :1955 Age:67 years Sex:Female Visit Date:07/13/2023 Primary Care Physician: FRANDY MASON Chief Complaint Neck pain Additional Information Numbness and tingling in both hands. feels sharp. Pain is worse when lifting. Patient uses a heating pat that does help. Did do PT with no relief. History of Present Illness The patient presents to the spine center for evaluation of her neck pain. ??She reports that she has been struggling with progressively worsening neck pain for very long time.?? She is also struggledwith shoulder issues and??had??surgery on her right shoulder with Dr. Huitron??on July 04.?? Shereports that her right shoulder pain has improved and she is doing quite well??and has very minimal postoperative pain.?? She is scheduled to follow-up with him next week.?? She continues to strugglewith posterior neck pain that radiates into the??upper back.?? She also struggles with pain in her left shoulder and upper arm down to the elbow.?? She is not sure if this is related to her neck or if she has shoulder problems on the left as well.?? She reports that she has numbness and tingling affecting both of her hands that affects all of the digits every morning when she wakes up. ??This will??resolve when she is up and moving around.?? She has not noticed any significant weakness of her upper or lower extremities but she does find that she has more difficulty opening jars??than in the past.?? Her neck pain is quite constant but she does find that lifting will increase her pain.?? The patient has also noticed that more recently her balance has gotten worse. ??She has not fallen.?? She denies any paresthesias in lower extremities other than??both of her feet will go numb if she is sitting on the toilet. ??That is??a new symptom for her as well.?? She does have some issues with herlow back??as well.?? For her neck issues she takes Advil which is helpful but she is concerned thatcarlos enriquee has been taking this for too long so she is trying to decrease the amount medication that she is taking. ??She has tried taking Tylenol as well which does not provide any relief. ??She did physical therapy for her neck issue with minimal relief as well. ?? Review of Systems Relevant ROS discussed in HPI Physical Exam Vitals & Measurements T:??36.4?C ??(Temporal Artery)?? HR:??73??(Peripheral)?? BP:??122/70?? SpO2:??98%?? HT:??162.56??cm?? WT:??136.0??kg?? BMI:??51.46?? GENERAL:?General Appearance:?pleasant, age appropriate in no apparent distress.?? MUSCULOSKELETAL:?Musculoskeletal:??Cervical spine ROM limited with bilateral rotation but more pronounced limitations with rotation to the left. ??Tenderness over the lower??cervical and upper thoracic spine. ??No significant cervical or upper thoracic paraspinal muscle tenderness. NEUROLOGICAL:?Neurological:??Positive Lhermitte's with numbness and tingling sensation going down??the mid back. ?Motor:?Strength 5/5 with bicep flexion, triceps flexion,?? hip flexion, knee flexion and extension, ankle dorsiflexion and plantar flexion.?Strength 5/5 with left deltoid??abduction,??right deltoid abduction was not tested given her recent shoulder surgery.?? Strength 4+/5 left wrist extension and hand abduction.?? Full strength with right wrist extension and hand infection. ?Reflexes:??1+ bilateral bicep jerks.?? Unable to elicit bilateral tricep, brachial radialis jerks.?? 1+ right knee jerk, trace left knee jerk. ??Unable to elicit bilateral ankle jerks. Negative Jl's bilaterally.? Tone: Normal ? Gait: Slightly bent forward at the waist but overall appears steady. ??The patient??has difficulty standing on each foot independently and is only able to stand on 1 foot without assistance for a very brief??second. Assessment/Plan 1.??Cervicalgia??M54.2 Ordered: MRI Spine Cervical w/o Contrast, 07/13/23, Routine, Reason: cervical radiculopathy LUE, left wrist weakness, cervicalgia, balance problem, No, No, To be done at [facility], Transport Mode: Ambulatory, Cervicalgia Cervical spondylosis with radiculopathy Balance problem... XR Spine Cervical 4 or 5 Views, 07/13/23, Routine, Reason: cervicalgia, AP/LAT and FLEX/EXT. To be done at [facility]., Transport Mode: Ambulatory, Cervicalgia ?? 2.??Cervical spondylosis with radiculopathy??M47.22 Ordered: MRI Spine Cervical w/o Contrast, 07/13/23, Routine, Reason: cervical radiculopathy LUE, left wrist weakness, cervicalgia, balance problem, No, No, To be done at [facility], Transport Mode: Ambulatory, Cervicalgia Cervical spondylosis with radiculopathy Balance problem... ?? 3.??Balance problem??R26.89 Ordered: MRI Spine Cervical w/o Contrast, 07/13/23, Routine, Reason: cervical radiculopathy LUE, left wrist weakness, cervicalgia, balance problem, No, No, To be done at [facility], Transport Mode: Ambulatory, Cervicalgia Cervical spondylosis with radiculopathy Balance problem... ?? 4.??Weakness of left upper extremity??R29.898 Ordered: MRI Spine Cervical w/o Contrast, 07/13/23, Routine, Reason: cervical radiculopathy LUE, left wrist weakness, cervicalgia, balance problem, No, No, To be done at [facility], Transport Mode: Ambulatory, Cervicalgia Cervical spondylosis with radiculopathy Balance problem... ?? 5.??Paresthesias??R20.2 Ordered: MRI Spine Cervical w/o Contrast, 07/13/23, Routine, Reason: cervical radiculopathy LUE, left wrist weakness, cervicalgia, balance problem, No, No, To be done at [facility], Transport Mode: Ambulatory, Cervicalgia Cervical spondylosis with radiculopathy Balance problem... ?? The patient has been struggling with??chronic neck pain for many years.?? She also has pain that radiates to the left shoulder and upper arm to the elbow.?? She is experiencing intermittent paresthesias of both of her hands particular when she wakes up in the morning.?? She is also noticed that herbalance has gotten worse more recently.?? Physical examination the patient has some very mild weakness??with left wrist extension.?? Her balance also is quite??poor.?? The patient's??last MRI of the cervical spine which??is??over a year old did show some mild??cord deformity at C6-7 with multilevelforaminal narrowing in the cervical spine.?I am concerned giving her worsening balance as well as the wrist weakness that??the nerve root compression or stenosis may have progressed.?? She has tried??medications??as well as physical therapy with no relief. ??I recommended??obtaining new imaging??in the form of AP and lateral and flexion-extension cervical spine x-rays as well as an MRI of the cervical spine without contrast. ??The patient is in agreement.?The patient is leaving for [place] for the winter??on August 17 so she is hoping to have her MRI completed prior to leaving. ??We discussed that depending upon the results of her??imaging, she may benefit from??cervical spine injections including??cervical epidural steroid injection as well as potential surgical correction for her problem especially if??the stenosis has progressed.?? The patient is aware that??these treatment options??would likely not be able to be completed in the short period of time before she leaves.?We discussed that if she may benefit from an injection she could certainly speak with her primary care provider in [place] to find a??pain clinic.?? She could also pursue surgical correction in [place] states that she would probably wait till she returned home if surgery was indicated. Plan: AP and lateral flexion-extension cervical spine x-rays. MRI of the cervical spine without contrast. Future Orders MRI Spine Cervical w/o Contrast, 07/13/23, Routine, Reason: cervical radiculopathy LUE, left wrist weakness, cervicalgia, balance problem, No, No, To be done at [facility], Transport Mode: Ambulatory, Cervicalgia Cervical spondylosis with radiculopathy Balance problem... XR Spine Cervical 4 or 5 Views, 07/13/23, Routine, Reason: cervicalgia, AP/LAT and FLEX/EXT. To be done at [facility]., Transport Mode: Ambulatory, Cervicalgia Problem List/Past Medical History Ongoing Balance problem Cervical spondylosis with radiculopathy Cervicalgia Morbid obesity Paresthesias Weakness of left upper extremity Historical No qualifying data Medications buPROPion 300 mg/24 hours (XL) oral tablet, extended release furosemide 40 mg oral tablet irbesartan-hydrochlorothiazide 150mg-12.5mg oral tablet omeprazole 40 mg oral delayed release capsule Ozempic 2 mg/3 mL (0.25 mg or 0.5 mg dose) subcutaneous solution rOPINIRole 2 mg oral tablet Allergies amLODIPine??(Unknown) dilTIAZem??(Unknown) Social History Alcohol Current Electronic Cigarette/Vaping Electronic Cigarette Use: Never. Tobacco Former tobacco user Tobacco Use:. Diagnostic Results Diagnostic Study Interpretation: The patient's MRI of the cervical spine is completed in April 2022 was reviewed with her.?? There was straightening of the cervical lordosis with multilevel degenerative and spondylotic changes in the cervical spine. ??There is quite a bit of??appears to be movement artifact or blurred images??on this MRI which does limit evaluation to some extent.?The most significant findings??were at C6-7 where there was a posterior disc osteophyte complex??with bilateral facet hypertrophy and left uncovertebral spurring causing??mild central stenosis and left neuroforaminal narrowing.?? At C5-6 there is also a posterior disc osteophyte complex with??bilateral facet and uncovertebral spurring causing thecal sac indentation and bilateral neuroforaminal narrowing that appears mild to moderate.?? At C4-5 there is a mild posterior disc osteophyte complex??with bilateral uncovertebral spurring that appears to be more significant on the right causing??mild right neuroforaminal narrowing.?? At C3-4 there is a mild posterior disc osteophyte complex with??bilateral facet and uncovertebral spurring causing??bilateral neuroforaminal narrowing. Electronically Signed on 07/13/23 11:28 AM CHANDLER Bradley Patient Care team information Care Team Personnel Name: FRANDY MASON Position: No Access Member Role: Primary Care Physician Address: Address: [address] [place] [id number]
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
--- OUTSIDE RECORDS SUMMARY | 2024-02-19 16:15 | XMS_ITS | Continuity of Care Document ---
Author Name Unknown Organization [facility] Address [address] [place] [address] Care Team Providers Care Universal Banker Name Role Phone Kamilah Hurley Primary Care Physician Encounter [facility] Date(s): 08/07/22 - 08/07/[address] [phone] Discharge Disposition: Home or Self Care Attending Physician: Kamilah Hurley DO Admitting Physician: Kamilah Hurley DO Referring Physician: Kamilah Hurley DO Immunizations Given and Recorded Vaccine Date Status Refusal Reason SARS-CoV-2 (COVID-19) mRNA-1273 vaccine 01/13/21 R ecorded SARS-CoV-2 (COVID-19) mRNA-1273 vaccine 12/16/20 R ecorded Results Laboratory List Name Date Automated Diff 08/07/22 Basic Metabolic Panel 08/07/22 CBC w/ Diff 08/07/22 Ferritin 08/07/22 Iron Level 08/07/22 Iron Level and TIBC 08/07/22 Most recent to oldest [Reference Range]: 1 2 WBC [5.0-10.0 x10^3/mcL] 8.2 x10^3/mcL (08/07/22 8:45 AM) RBC [4.1-5.3 x10^6/mcL] 4.5 x10^6/mcL (08/07/22 8:45 AM) Neutro Auto [40.0-75.0 %] 70.4 % (08/07/22 8:45 AM) Lymph Auto [20.0-50.0 %] 21.6 % (08/07/22 8:45 AM) Woodson Auto [2.0-15.0 %] 6.1 % (08/07/22 8:45 AM) Basophil Auto [0.0-1.0 %] 0.4 % (08/07/22 8:45 AM) BUN [7-18 mg/dL] 12 mg/dL (08/07/22 8:45 AM) Glucose Level [74-106 mg/dL] 119 mg/dL *HI* (08/07/22 8:45 AM) Potassium Level [3.5-5.1 mmol/L] 3.8 mmo l/L (08/07/22 8:45 AM) MCV [80.0-96.0] 97.6 *HI* (08/07/22 8:45 AM) MCHC [31.0-35.0 g/dL] 32.8 g/dL (08/07/22 8:45 AM) Sodium Level [136-145 mmol/L] 139 mmol/L (08/07/22 8:45 AM) Hct [37.0-47.0 %] 44.2 % (08/07/22 8:45 AM) Calcium Level [8.5-10.1 mg/dL] 8.7 mg/dL (08/07/22 8:45 AM) Iron Sat [20-55 %] 22 % (08/07/22 8:45 AM) MCH [26.0-32.0 pg] 32.0 pg (08/07/22 8:45 AM) Neutro Absolute 5.8 x10^3/mcL *NA* (08/07/22 8:45 AM) Hgb [12.0-16.0 g/dL] 14.5 g/dL (08/07/22 8:45 AM) Ferritin Level [8-252 ng/mL] 125 ng/mL (08/07/22 8:45 AM) Platelets [130-450 x10^3/mcL] 300 x10^3/ mcL (08/07/22 8:45 AM) CO2 [21-32 mmol/L] 29 mmol/L (08/07/22 8:45 AM) TIBC [250-450 mcg/dL] 402 mcg/dL (08/07/22 8:45 AM) Iron [50-170 mcg/dL] 87 mcg/dL (08/07/22 8:45 AM) 87 mcg/dL (08/07/22 8:45 AM) eGFR Non-AA [>=60] 65 (08/07/22 8:45 AM) eGFR AA [>=60] 65 (08/07/22 8:45 AM) Chloride Level [98-107 mmol/L] 100 mmol/ L (08/07/22 8:45 AM) RDW-CV [11.7-17.0 %] 13.6 % (08/07/22 8:45 AM) Imm Gran Auto [0.0-0.9 %] 0.2 % (08/07/22 8:45 AM) Creatinine Level [0.55-1.02 mg/dL] 0.96 mg/dL (08/07/22 8:45 AM) Eos, Auto [1.0-6.0 %] 1.3 % (08/07/22 8:45 AM) Social History Social History Type Response Sex Female Patient Care team information Personnel Name: Kamilah Hurley DO Address: Address: [address] [address] [place]
--- OUTSIDE RECORDS SUMMARY | 2024-02-19 16:15 | XMS_ITS | Continuity of Care Document ---
Author Name Unknown Organization [facility] Address [address] [place] [phone] Care Team Providers Care Call Center Director Name Role Phone FRANDY MASON Primary Care Physician Encounter [facility] [facility] [id number] Date(s): 07/17/23 - 07/17/23 [facility] [address] [place] [address]- Discharge Disposition: Home Allergies, Adverse Reactions, Alerts [...] Active Cervicalgia Confirmed Active Paresthesias Confirmed Active Social History Social History Type Response Tobacco Former tobacco user Tobacco Use:. Sex Patient Care team information Care Team Personnel Name: FRANDY MASON Position: No Access Member Role: Primary Care Physician Address: Address: [address] [place] [id number] [place]
--- OUTSIDE RECORDS SUMMARY | 2024-02-19 16:15 | XMS_ITS | Continuity of Care Document ---
Author Name Unknown Organization [facility] Address [address] [place] [address] Care Team Providers Care Hydrotechnical Specialist Name Role Phone FRANDY MASON Primary Care Physician Encounter [facility] NBR [id number] Date(s): 07/17/23 - 07/17/23 [facility] [address] [place] [id number]- Discharge Disposition: Home Allergies, Adverse Reactions, Alerts [...] Member Role: Primary Care Physician Address: Address: [address] [place] [address] [place]
--- OUTSIDE RECORDS SUMMARY | 2024-02-19 16:15 | XMS_ITS | Continuity of Care Document ---
Author Name Unknown Organization [facility] Address [address] [place] [address] Care Team Providers Care Technical Writer Name Role Phone Kamilah Hurley Primary Care Physician [facility] Date(s): 08/07/22 - 08/07/[address] [address] Discharge Disposition: Home or Self Care Attending Physician: Kamilah Hurley DO Admitting Physician: Kamilah Hurley DO Referring Physician: Kamilah Hurley DO Immunizations Given and Recorded Vaccine Date Status Refusal Reason SARS-CoV-2 (COVID-19) mRNA-1273 vaccine 01/13/21 R ecorded SARS-CoV-2 (COVID-19) mRNA-1273 vaccine 12/16/20 R ecorded Social History Social History Type Response Sex Female Patient Care team information Personnel Name: Kamilah Hurley DO Address: Address: [id number] [place] [address]
--- OUTSIDE RECORDS SUMMARY | 2024-02-19 16:15 | XMS_ITS | Continuity of Care Document ---
Author Name Unknown Organization [facility] Address [address] [place] [address] Care Team Providers Care Medical Health Researcher Name Role Phone FRANDY MASON Primary Care Physician Encounter [facility] NBR [id number] Date(s): 12/27/23 - 12/27/23 [facility] Ambulatory Clinics [address] [place], [place] [address] Encounter Diagnosis Cervical spondylosis with radiculopathy(Discharge Diagnosis) - 12/27/23 Balance problem(Discharge Diagnosis) - 12/27/23 Weakness of left upper extremity(Discharge Diagnosis) - 12/27/23 Sciatica(Discharge Diagnosis) - 12/27/23 Morbid obesity(Discharge Diagnosis) - 12/27/23 Back pain with sciatica(Discharge Diagnosis) - 12/27/23 Sciatica, unspecified side(Discharge Diagnosis) - 12/27/23 Spinal instability of cervical region(Discharge Diagnosis) - 12/27/23 Discharge Disposition: Home or Self Care Attending Physician: Chas Montoya DO (Bernie) Allergies, Adverse Reactions, Alerts Substance Reaction Severity Status amLODIPine Unknown Unknown Active dilTIAZem Unknown Unknown Active Assessment and Plan Extracted from: Title:Neurosurgery office Visit Note Author:Chas Montoya DO (Bernie) Date:12/27/23 1.??Cervical spondylosis wit h radiculopathy??M47.22 ??This is a 68-year-old female with cervical radiculopathy and early myelopathy.?? Her MRI reveals??loss??of normal cervical lordosis with disc degeneration at C5- 6 and C6-7??causing??cord contact and right foraminal stenosis at C5-6, and bilateral foraminal stenosis at C6-7.?? Moreover, it looks like??she has ligamentous instability??at C5-6??on??flexion-extension films.?? I discussed??treatment options with her including??epidural injections??and surgery.?? Patient prefers to have more durable??treatment.?I therefore recommended??C5-6 and C6-7??ACDF. ??I discussed the surgery, surgical risks, and??expected postoperative course.?? Patient??would like to proceed. 2.??Balance problem??R26.89 3.??Weakness of left upper extremity??R29.898 4.??Sciatica??M54.30 ??Patient has??low back pain and??bilateral leg pain??that is of equal severity to her neck pain.?? She prefers to proceed??with treatment of her cervical spine first, but I recommended??a lumbar MRI. ??Patient is agreeable. 5.??Morbid obesity??E66.01 Orders: MRI Spine Lumbar w/o Contrast, 12/27/23, Routine, Reason: low back pain, No, No, Transport Mode: Ambulatory, Back pain with sciatica Future Appointments Future Scheduled Tests Radiology* MRI [...] Active Paresthesias Confirmed Active Sciatica Confirmed Active Vital Signs Most recent to oldest [Reference Range]: 1 Temperature Temporal Artery [36-38 Deg C ] 36.3 Deg C (12/27/23 9:00 AM) Peripheral Pulse Rate [60-100 bpm] 58 bp m *LOW* (12/27/23 9:00 AM) Respiratory Rate [12-24 br/min] 16 br/mi n (12/27/23 9:00 AM) Blood Pressure [90-140/60-90 mmHg] 130/8 6mmHg (12/27/23 9:00 AM) Mean Arterial Pressure, Cuff [65-140 mmH g] 101 mmHg (12/27/23 9:00 AM) Social History Social History Type Response Tobacco Former tobacco user Tobacco Use:. Sex Physician Outpatient Note * Chas Montoya DO (Bernie): PERFORM Event Display: Office Clinic Note Physician Authored Date: [id number] RAFAT ORDAZ :1955 Age:68 years Sex:Female Visit Date:12/27/2023 Primary Care Physician: FRANDY MASON Chief Complaint neck pain History of Present Illness This is a 68-year-old??right-handed female??who was last seen on 07/13/2023??for??neck and??left arm pain. She previously also had right shoulder pain??but??recently had shoulder surgery??which addressed this problem.?She endorses??left??sided weakness??as well as??balance problems??but denies bowel or bladder dysfunction.?? She had tried gabapentin in the past, but this??did not help. ?? Patient also??complains of low back and bilateral sciatic pain??that is??of equal severity??to her neck pain, and began around the same time.?? The pain is located in the posterior legs bilaterally. ??She underwent??LESI a long time ago??which worked for short period of time.?? Patient would like her cervical??issues addressed??first. Review of Systems As per HPI Physical Exam Vitals & Measurements T:??36.3?C ??(Temporal Artery)?? HR:??58??(Peripheral)?? RR:??16?? BP:??130/86?? SpO2:??96%?? GENERAL:?General Appearance:?pleasant, age appropriate in no apparent distress.?? MUSCULOSKELETAL:?Musculoskeletal:??Cervical spine ROM limited with bilateral rotation but more pronounced limitations with rotation to the left. ??Tenderness over the lower??cervical and upper thoracic spine. ??No significant cervical or upper thoracic paraspinal muscle tenderness. NEUROLOGICAL:?Neurological: Negative SLR bilaterally. ?Motor:?Strength 4/5 left deltoid, bicep, tricep, wrist extension, hip flexion, knee extension and flexion.?? Full strength left hand professor of practice and intrinsics. Full strength in RUE and RLEall muscle groups. ?Reflexes:??1+ bilateral bicep jerks.?? Unable to elicit bilateral tricep, brachial radialis jerks.?? 1+ right knee jerk, trace left knee jerk.?? Negative Jl's and clonus bilaterally.? Tone: Normal ? Gait:Difficulty with tandem Assessment/Plan 1.??Cervical spondylosis with radiculopathy??M47.22 ??This is a 68-year-old female with cervical radiculopathy and early myelopathy.?? Her MRI reveals??loss??of normal cervical lordosis with disc degeneration at C5-6 and C6-7??causing??cord contact and right foraminal stenosis at C5-6, and bilateral foraminal stenosis at C6-7.?? Moreover, it looks like??she has ligamentous instability??at C5-6??on??flexion-extension films.?? I discussed??treatmentoptions with her including??epidural injections??and surgery.?? Patient prefers to have more durable??treatment.?I therefore recommended??C5-6 and C6-7??ACDF. ??I discussed the surgery, surgical risks, and??expected postoperative course.?? Patient??would like to proceed. 2.??Balance problem??R26.89 3.??Weakness of left upper extremity??R29.898 4.??Sciatica??M54.30 ??Patient has??low back pain and??bilateral leg pain??that is of equal severity to her neck pain.??She prefers to proceed??with treatment of her cervical spine first, but I recommended??a lumbar MRI. ??Patient is agreeable. 5.??Morbid obesity??E66.01 Orders: MRI Spine Lumbar w/o Contrast, 12/27/23, Routine, Reason: low back pain, No, No, Transport Mode: Ambulatory, Back pain with sciatica Future Orders MRI Spine Lumbar w/o Contrast, 12/27/23, Routine, Reason: low back pain, No, No, Transport Mode: Ambulatory, Back pain with sciatica Problem List/Past Medical History Ongoing Balance problem Cervical spondylosis with radiculopathy Cervicalgia Morbid obesity Paresthesias Sciatica Weakness of left upper extremity Historical No [...] Tobacco Use:. Diagnostic Results Diagnostic Study Interpretation: MRI of the cervical spine without contrast 08/09/2023: Reversal of the cervical lordosis.?? There isintervertebral disc space narrowing most pronounced at the C5-6 and C6-7 levels.?? At C5-6 there nile posterior disc osteophyte complex with bilateral uncovertebral spurring and facet hypertrophy causing thecal sac indentation and possibly very mild central stenosis as well as mild to moderate leftneuroforaminal narrowing.?? At C6-7 there is again a posterior disc osteophyte complex with bilateral uncovertebral spurring causing thecal sac indentation and again may be very mild cervical spinal cord deformity and mild bilateral neuroforaminal narrowing.?? There is no edema within the cervical s melissa cord. ?? X-ray cervical spine 08/09/2023:??Anterolisthesis at??C5-6??with flexion??that reduces on extension views. Attending Attestation Spent 45 minutes with patient in obtaining appropriate history and exam, counseling the patient, ordering surgery.?Time was not spent in performing separately reimbursable service. Electronically Signed on 12/27/23 10:06 AM Shantanu Montoya DO (Bernie) Patient Care team information Care Team Personnel Name: FRANDY MASON Position: No Access Member Role: Primary Care Physician Address: Address: [address] [place] [address]
--- OUTSIDE RECORDS SUMMARY | 2024-02-19 16:16 | XMS_ITS | Continuity of Care Document ---
Author Name Unknown Organization [facility] Address [address] [place] [address] Care Team Providers Care Defective Cigarette Slitter Name Role Phone Kamilah Hurley Primary Care Physician [facility] Date[facility]04/23 - 07/04/[address] [address] Discharge Disposition: Home or Self Care Attending Physician: Noé Lua MD Admitting Physician: Noé Lua MD Referring Physician: Noé Lua MD Allergies, Adverse Reactions, Alerts Substance Reaction Severity Status amLODIPine Itchy Mild Active dilTIAZem Itchy Mild Active Assessment and Plan Future Appointments Functional Status 07/04/23 Anti-Embolism Device Activity: Removed Anti-Embolism Device Removal Reason: Dis continued Anti-Embolism Site Condition: No complic ations 07/04/23 Recent Travel History No recent travel Other exposure to Infectious Disease Non e Immunizations Given and Recorded Vaccine Date Status [...] pain, # 12 tab, 0 Refill(s), Pharmacy: [id number], 163, cm, 07/04/23 9:47:00 EDT, Height, 135.8, kg, 07/04/23 10:17:00 EDT, Weight Dosing Start Date: 07/04/23 Status: Ordered irbesartan-hydrochlorothiazide 150mg-12.5mg oral tablet TAKE 1 TABLET BY MOUTH TWICE DAILY - RE-START INSTEAD OF LISINOPRIL Start Date: 06/15/23 Status: Ordered naproxen 375 mg oral tablet 375 mg = 1 tab, Oral, BID, # 60 tab, 0 Refill(s), Pharmacy: [id number], 160, cm, 12/29/22 9:04:00 [...] surgery for basal cell carcinoma rgt marleny Vital Signs Most recent to oldest [Reference Range]: 1 2 3 Temperature Temporal Artery [36-38 Deg C] 36.2 Deg C (07/04/23 1:00 PM) 35.8 Deg C *LOW* (07/04/23 12:25 PM) 35.9 Deg C *LOW* (07/04/23 12:10 PM) Temperature Temporal Artery (DegF) [97.3-100 Deg F] 97.16 Deg F *LOW* (07/04/23 1:00 PM) 96.44 Deg F *LOW* (07/04/23 12:25 PM) 96.62 Deg F *LOW* (07/04/23 12:10 PM) Peripheral Pulse Rate [60-100 bpm] 71 bpm (07/04/23 1:15 PM) 73 bpm (07/04/23 1:00 PM) 72 bpm (07/04/23 12:40 PM) Heart Rate Monitored [60-100 bpm] 69 bpm (07/04/23 1:15 PM) 73 bpm (07/04/23 1:00 PM) 72 bpm (07/04/23 12:40 PM) Respiratory Rate [12-24 br/min] 12 br/min (07/04/23 1:15 PM) 14 br/min (07/04/23 1:00 PM) 11 br/min *LOW* (07/04/23 12:40 PM) Blood Pressure [90-140/60-90 mmHg] 136/67mmHg (07/04/23 1:15 PM) 133/66mmHg (07/04/23 1:00 PM) 114/67mmHg (07/04/23 12:40 PM) Mean Arterial Pressure, Cuff [65-140 mmHg] 90 mmHg (07/04/23 1:15 PM) 88 mmHg (07/04/23 1:00 PM) 83 mmHg (07/04/23 12:40 PM) Weight 135.8 kg (07/04/23 9:47 AM) Weight Dosing 135.800 kg (07/04/23 9:47 AM) Weight Estimated 127.00 kg (06/27/23 3:23 PM) Height 163 cm (07/04/23 9:47 AM) Body Mass Index 51.11 kg/m2 (07/04/23 9:47 AM) Social History Social History Type Response Tobacco Former tobacco user Tobacco Use:. Sex Female Discharge instructions * Jayla Rojas V RN: PERFORM Event Display: Discharge Instructions Authored Date: [id number] RAFAT ORDAZ :1955 Age:67 years Sex:Female Visit Date:07/04/2023 Primary Care Physician: Kamilah Hurley DO Hospital Discharge Instructions We would like to thank you for allowing us to assist you with your healthcare needs. The following includes patient education materials and information regarding your injury/illness. Your Next Steps Instructions From Your Care Team Orthopedic Surgery Discharge Instructions keep dressing on until follow up in office sling as needed ?? Pain Control ?Take your pain relief medication when discomfort first begins. ?Can use stool softener while taking the narcotic to avoid problems with constipation. ?It is okay to start [id number] Naproxen or Ibuprofen??immediately ?? Call your doctor if you: ?Develop a fever over 101 degrees. ?Have increased redness, warmth, discharge, swelling, or hardness around the operative site. ?Circulation changes such as tingling, numbness or your fingers/toes appear blue or white. ?Your pain is not adequately controlled, despite taking your pain medication routinely. ?? On the day of surgery, or while taking narcotic pain medication: No driving, operating power equipment,?? drinking alcohol,?? or taking mood altering drugs? Apply warm, moist compress to IV site if sore or red, for 20 minutes, 4 times a day, for 2-3 days.?? Call your doctor if IV site soreness or redness persists. In the event of any problems after surgery, contact your doctor or the Emergency Room @ . Ortho Office: [phone]?? Discharge Orders Discharge Patient Instructions, Follow discharge instructions handout Scheduled Future Appointments Sunday 2:30 PM EST ?? With: Taylor Navarro PA-C Where: [facility] [address] [place] [address], [address] [place] [address] Status: Confirmed Medications What How Much When Why Instructions Next Dose New HYDROcodone-acetaminophen (HYDROcodone-acetaminophen 5 mg-325 mg oral tablet) 1 tab Oral (given by mouth) Every 4 hours as needed for as needed for pain Pickup at [facility] Unchanged buPROPion (buPROPion 300 mg/ 24 hours (XL) oral tablet, extended release) TAKE 1 TABLET (300 MG) BY MOUTH ONCE DAILY IN THE MORNING, MAX DAILY DOSE 300 MG, CONTINUE WITH 300MG NOW A SINGLE TABLET ?? Unchanged furosemide (furosemide 40 mg oral tablet) TAKE 1 TABLET (40 MG) BY MOUTH ONCE DAILY (DOSE INCREASE) ?? Unchanged irbesartan-hydrochlorothiazide (irbesartan-hydrochlorothiazide 150mg- 12.5mg oral tablet) TAKE 1 TABLET BY MOUTH TWICE DAILY - RE-START INSTEAD OF LISINOPRIL ?? Unchanged naproxen (naproxen 375 mg oral tablet) 1 tab Oral (given by mouth) 2 times a day Groin pain Muscle strain Unchanged omeprazole 40 Milligrams Every day Unchanged rOPINIRole (rOPINIRole 2 mg oral tablet) 1 tab 2 times a day Unchanged semaglutide (Ozempic 2 mg/ 3 mL (0.25 mg or 0.5 mg dose) subcutaneous solution) INJECT 0.25MG SUBCUTANEOUSLY EVERY WEEK FOR 4 WEEKS THEN INCREASE TO 0.5MG PER D/ W PCP FOR 4 WEEKS?? Pharmacy Information [id number]: [address] [place] [address] [phone] Your Summary Your Care Team Admitting Physician - Noé Lua MD Attending Physician - Noé Lua MD Primary Care Physician - Kamilah Hurley DO Referring Physician - Noé uLa MD Allergies amLODIPine??(Itchy) dilTIAZem??(Itchy) Patient/Creative Services Designer Signature Patient Name:RAFAT ORDAZ I have received this information and my questions have been answered. 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 History of Present Illness New problem today seen today for right shoulder pain has been present for the last year or so had an MRI done about a year ago. ??Notes most of her pain superiorly with attempting to across the body or overhead.?? Being steroid injections have not been beneficial.?? Also having a bit of neck pain??up into the contralateral left side has an MRI of her C-spine as well. ?? Review of Systems Constitutional:?No??fevers,?No??chills,?No??sweats Eye:?No??recent visual problems ENT:?No??ear pain,?No??nasal congestion,?No??sore throat Respiratory:?No??shortness of breath,?No??cough Cardiovascular:?No??Chest pain,?No??palpitations,?No??syncope Gastrointestinal:?Nonausea,?No??vomiting,?No??diarrhea Genitourinary:?No??hematuria Caleb/Lymph:?No??bruising tendency,?No??swollen lymph glands Endocrine:?No??excessive thirst,??No??excessive hunger Musculoskeletal:??No??back pain,??No??neck pain,??No??joint pain,??No??muscle pain,??No??decreased range of motion Integumentary:?No??rash,?No??pruritus,?No??abrasions Neurologic: Alert & oriented X 4 Psychiatric:?No??anxiety,?No??depression ?? Physical Exam ?Vitals & Measurements ?HT:??162.56??cm?? WT:??137.62??kg?? BMI:??52.08?? BSA:??2.49?? Well-nourished well-developed acute distress alert and oriented appearing stated age. ??Shoulder range of motion is full in flexion abduction internal and external rotation??negative Neer's and Hendrickson negative speeds and Neer's and signs??no real pain over the anterolateral acromion but her pain is present quite severely at the AC joint and localizes there with that side only??significant provocative finding??normal elbow wrist hand range of motion with cap refill distally no open wound signs of erythema or infection.?? Spine does have pain along the??left??lateral area??mid cervical and with rotational motion does have??pain in the region. ??Review of studies reveals??some C5-6??or 6 7??disc protrusion which may be causing the C-spine pain review of old x-rays and MRI reveals??mild inflammation around the rotator cuff and biceps tendon which seem to be asymptomatic as well as significant AC joint arthrosis. ?? Assessment/Plan 1.??Right shoulder pain??M25.511 ?Shoulder pain likely dealing with some AC joint arthritis is??I discussed with her options watchful waiting therapy or injection which has already been done versus surgical invention for isolateddistal clavicle resection??versus arthroscopy evaluation in the same.?? At this point I do not feelreason to go into the shoulder joint based on clinical exam so were going to proceed with an open AC resection and refer her out for??spine evaluation. ?Ordered: PAT Surgery / Procedure Nursing Review Request., 06/14/23 14:34:00 EDT, Noé Lua MD, Right open AC resection, Right open distal clavicle resection. Need 30 minutes. Date and time per patient scheduler. Anesthesia per choice. Small sagittal saw. No arthroscopy. BMI 52, Right shoulder pain ?? Problem List/Past Medical History Ongoing ?Essential hypertension ??Incidental lung nodule, > 3mm and < 8mm ??Morbid obesity ??Right shoulder pain Historical ?No qualifying data Medications ??allopurinol 300 mg oral tablet, 300 mg= 1 tab, Oral, Daily ??amLODIPine, 5 mg, Daily ??ezetimibe, 10 mg, Daily ??naproxen 375 mg oral tablet, 375 mg= 1 tab, Oral, BID ??omeprazole, 40 mg, Daily ??rOPINIRole 2 mg oral tablet, 2 mg= 1 tab, BID Allergies amLODIPine??(Itchy) dilTIAZem??(Itchy) [2] [1]??Office Visit Note; Noé Lua MD 06/14/2023 14:35 EDT [2]??Office Visit Note; Noé Lua MD 06/14/2023 14:35 EDT Electronically Signed on 07/02/23 03:43 PM Aranza Briggs Electronically Signed on 07/03/23 07:42 AM Noé Lua MD * Noé Lua MD: PERFORM Event Display: History and Physical Authored Date: Patient seen in preoperative hold no change in general's health status H&P updated Electronically Signed on 07/04/23 11:58 AM Noé Lua MD Patient Care team information Care Team Personnel Name: Kamilah Hurley DO Position: No Access Member Role: Informed Provider Address: Address: [address], [place] [address] Care Team Related Persons Name: JHOANA ORDAZ Address: Home [address] [place], [id number]
--- OUTSIDE RECORDS SUMMARY | 2024-02-19 16:16 | XMS_ITS | Clinical Summary ---
Author Name Unknown Address [address] [place] [address] Phone Organization [facility] Address [address] [place] [address] Phone Care Team Providers Care Franchise Business Consultant Name Role Phone Amanuel MUÑIZ, Enrique Kohler Primary Care Provider [phone] Tnoi Balderrama DO Unavailable [phone] Yancy Lobo MD Unavailable [phone] Reason for Visit and Chief Complaint The Chief Complaint is: right Problems Includes: Problems addressed during this encounter and other active Problems All Visits Onset Date Resolved Date Provider Condition S tatus Hemorrhoids Second Degree 10/25/2018 Davey Massey DO Active Last Documented On 10/25/2018 1:50PM ; [facility] Note: Unchanged 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 09/29/2014 Toni Balderrama DO Active Last Documented On 09/29/2014 11:35AM ; [facility] Note: Unchanged Plan of Treatment No Plan of Treatment Recorded Assessments Includes: Assessments from this encounter Findings - Primary gout of ankle and foot - Last Documented On 12/02/2023 11:55AM ; [facility] Medical Equipment - Implanted Devices Includes: Current Devices No Medical Equipment Recorded Medications Includes: Medications discussed during this encounter and other current Medications New / Renewed during this visit Ford Charlton MD on 12/02/2023 predniSONE 20 MG Oral Tablet Provider: Ford Charlton MD 5 day supply: 10 tablet, 0 refills Diagnosis: Idiopathic gout, right ankle and foot 2 po qd [facility] [address] [address] [place], [address] - Last Documented On 4 11:56AM By Ford Charlton MD ; [facility] Current Medications (continue as prescribed) Acidophilus Probiotic Oral Tablet 11/25/2018 Provide r: Diagnosis: Last Documented On 9 10:24AM By Yancy Lobo MD ; [facility] EQ Daily Fiber 400MG Oral Capsule 11/25/2018 Provide r: Diagnosis: Last Documented On 9 10:25AM By Yancy Lobo MD ; [facility] Esomeprazole Magnesium 40MG Oral Capsule Delayed Relea se 11/25/2018 Provider: Diagnosis: Last Documented On 9 10:25AM By Yancy Lobo MD ; [facility] Pravastatin Sodium 20MG Oral Tablet 11/25/2018 Provi veronica: Diagnosis: Last Documented On 9 10:26AM By Yancy Lobo MD ; [facility] amLODIPine Besylate 5MG Oral Tablet 11/25/2018 Provi veronica: Diagnosis: Last Documented On 9 10:26AM By Yancy Lobo MD ; [facility] Irbesartan-hydroCHLOROthiazide 150-12.5MG Oral Tablet 11/25/2018 Provider: Diagnosis: Last Documented On 9 10:27AM By Yancy Lobo MD ; [facility] Sucralfate 1GM Oral Tablet 11/04/2018 Provider: Diagnosis: Last Documented On 9 9:26AM By Yancy Lobo MD ; [facility] Fluticasone Propionate 0.05% External Cream 10/24/2018 Provider: Yancy Lobo MD Diagnosis: Hemorrhage of an us and rectum use as directed. apply to an al region tid Last Documented On 9 11:20AM By Yancy Lobo MD ; [facility] Dicyclomine HCl 20MG Oral Tablet 10/21/2018 Provider: Yancy Lobo MD Diagnosis: Generalized abdo jt pain 1 three times daily. Take as needed for abdominal pain Last Documented On 9 1:40PM By Yancy Lobo MD ; [facility] Requip 2 MG OR TABS 10/20/2008 Provider: Diagnosis: Last Documented On 9 3:20PM By Tarah Nichols CMA ; [facility] Medications Administered Includes: Administered Medications from this encounter Medications Administered Diagnosis Date Pro vider dexAMETHasone Sod Phosphate PF 10 MG/ML IJ SOLN 12/02/2023 Ford Charlton MD [facility] [id number] Last Documented On 4 12:01PM By Chrissie Vines ; [facility] Vital Signs Includes: Vital Signs from this encounter Vital Name 12/02/2023 11:45A Blood Pressure Sitting (mmHg) 140/86 Pulse Rate-Sitting (bpm) 96 Respiration Rate (breaths/min) 18 Temp-Temporal 97.9 Height (in) 63.5 Weight (lb) 280 Body Mass Index 48.8 Body Surface Area 2.2 Oxygen Saturation (%) 99 Flow Rate (l/min) (None (Room Air)) FiO2 (%) 21 Last Documented On: 12/02/2023 11:49AM ; [facility] Results Includes: Results discussed during this encounter No Results Recorded For Specified Dates History of Present Illness Includes: History of Present Illness from this encounter NATE Figueroa is a 68 year old female. - Allergy list reviewed - Problem list reviewed - Medication list reviewed PT here with R foot pain for the past week or so. no trauma, pain is diffuse. Pt notes a hx of gout in the past Social History No Social History Recorded - Smoking Status Unknown Medical History Includes: Medical History addressed during this encounter No Medical History Recorded Family History Includes: Family History addressed during this encounter No Family History Recorded Review of Systems Includes: Review of Systems from this encounter No Review of Systems Recorded Functional Status Includes: Functional Status from this encounter No Functional Status Recorded Physical Exam Includes: Physical Exam from this encounter Allergies Includes: Active Allergies No Known Allergies Encounters Encounter Provider Location Date Check-In Time Check-Out Time Diagnosis [facility] New Patient Ford Charlton MD [facility] 12/02/19 24 11:30AM 12:02PM Gout Primary Ankle and Foot Insurance Includes: Active Insurance Policies Plan Name Member ID Group # Subscriber Relationship Effect johana Dates 1 - [employer] [id number] Rachel Figueroa Self Clinical Notes Includes: Clinical Notes from this encounter * Progress note Date Encounter Last Documented by 12/02/2023 [facility] New Patient Last documented on 12/02/2023; 11:55 AM, Ford Charlton MD; [facility] Chief Complaint The Chief Complaint is: Right. History of Present Illness Rachel Figueroa is a 68 year old female. - Allergy list reviewed - Problem list reviewed - Medication list reviewed PT here with R foot pain for the past week or so. no trauma, pain is diffuse. Pt notes a hx of gout in the past Physical Findings - Vitals taken 12/02/2023 11:45 am BP-Sitting 140/86 mmHg Pulse Rate-Sitting 96 bpm Respiration Rate 18 per min Temp-Temporal 97.9 F Height 63.5 in Weight 280 lbs Body Mass Index 48.8 kg/m2 Body Surface Area 2.2 m2 Oxygen Saturation 99 % O2 Device None (Room Air) FiO2 21 % mod diffuse R foot pain Assessment - Primary gout of ankle and foot Plan StartCited - Idiopathic gout, right ankle and foot predniSONE 20 MG tablet 2 po qd, 5 days, 0 refills EndCited
--- OUTSIDE RECORDS SUMMARY | 2024-02-19 16:16 | XMS_ITS | Clinical Summary ---
Author Name Unknown Address [address] [place] [address] Phone Organization [facility] Address [address] [place] [address] Phone Care Team Providers Care Flight Readiness Technician Name Role Phone Amanuel MUÑIZ, Enrique Kohler Primary Care Provider [phone] Toni Balderrama DO Unavailable [phone] Yancy Lobo MD Unavailable [phone] Reason for Visit and Chief Complaint Proctology Procedure Problems Includes: Problems addressed during this encounter and other active Problems All Visits Onset Date Resolved Date Provider Condition S tatus Hemorrhoids Second Degree 10/25/2018 Davey Massey DO Active Last Documented On 10/25/2018 1:50PM ; [facility] Note: Unchanged 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 09/29/2014 Toni Balderrama DO Active Last Documented On 09/29/2014 11:35AM ; [facility] Note: Unchanged Plan of Treatment No Plan of Treatment Recorded Assessments Includes: Assessments from this encounter No Assessments Recorded Medical Equipment - Implanted Devices Includes: Current Devices No Medical Equipment Recorded Medications Includes: Medications discussed during this encounter and other current Medications Current Medications (continue as prescribed) Acidophilus Probiotic Oral Tablet 11/25/2018 Provide r: Diagnosis: Last Documented On 9 10:24AM By Yancy Lobo MD ; [facility] EQ Daily Fiber 400MG Oral Capsule 11/25/2018 Provide r: Diagnosis: Last Documented On 9 10:25AM By Yancy Lobo MD ; [facility] Esomeprazole Magnesium 40MG Oral Capsule Delayed Relea se 11/25/2018 Provider: Diagnosis: Last Documented On 9 10:25AM By Yancy Lobo MD ; [facility] Pravastatin Sodium 20MG Oral Tablet 11/25/2018 Provi veronica: Diagnosis: Last Documented On 9 10:26AM By Yancy Lobo MD ; [facility] amLODIPine Besylate 5MG Oral Tablet 11/25/2018 Provi veronica: Diagnosis: Last Documented On 9 10:26AM By Yancy Lobo MD ; [facility] Irbesartan-hydroCHLOROthiazide 150-12.5MG Oral Tablet 11/25/2018 Provider: Diagnosis: Last Documented On 9 10:27AM By Yancy Lobo MD ; [facility] Sucralfate 1GM Oral Tablet 11/04/2018 Provider: Diagnosis: Last Documented On 9 9:26AM By Yancy Lobo MD ; [facility] Fluticasone Propionate 0.05% External Cream 10/24/2018 Provider: Yancy Lobo MD Diagnosis: Hemorrhage of an us and rectum use as directed. apply to an al region tid Last Documented On 9 11:20AM By Yancy Lobo MD ; [facility] Dicyclomine HCl 20MG Oral Tablet 10/21/2018 Provider: Yancy Lobo MD Diagnosis: Generalized abdo tj pain 1 three times daily. Take as needed for abdominal pain Last Documented On 9 1:40PM By Yancy Lobo MD ; [facility] Requip 2 MG OR TABS 10/20/2008 Provider: Diagnosis: Last Documented On 9 3:20PM By Tarah Nichols CMA ; [facility] Medications Administered Includes: Administered Medications from this encounter No Administered Medications Recorded Results Includes: Results discussed during this encounter No Results Recorded For Specified Dates History of Present Illness Includes: History of Present Illness from this encounter No History of Present Illness Recorded Social History No Social History Recorded - [...] Exam Includes: Physical Exam from this encounter No Physical Exam Recorded Allergies Includes: Active Allergies No Known Allergies Insurance Includes: Active Insurance Policies Plan Name Member ID Group # Subscriber Relationship Effect johana Dates Medicare [employer] [id number] Rachel Figueroa Self Clinical Notes Includes: Clinical Notes from this encounter No Clinical Notes Recorded
--- OUTSIDE RECORDS SUMMARY | 2024-02-19 16:16 | XMS_ITS ---
Care Plan - [facility] Created on: February 19, 2024 Rachel Figueroa : 1955 Sex: Female Author Name Unknown Address [address] [place] [address] Phone Organization [facility] Address [address] [place] [address] Phone Care Team Providers Care Marketing Director Assisted Living Name Role Phone Amanuel MUÑIZ, Enrique Kohler Primary Care Provider [phone] Toni Balderrama DO Unavailable [phone] Yancy Lobo MD Unavailable [phone]
--- OUTSIDE RECORDS SUMMARY | 2024-02-19 16:16 | XMS_ITS | Clinical Summary ---
Author Name Unknown Address [address] [place] [address] Phone Organization [facility] Address [address] [place] [address] Phone Care Team Providers Care Steel Detailer Name Role Phone Amanuel MUÑIZ, Enrique Kohler Primary Care Provider [phone] Toni Balderrama DO Unavailable [phone] Yancy Lobo MD Unavailable [phone] Reason for Visit and Chief Complaint The Chief Complaint is: Patient is here for a 3 week follow up Problems Includes: Problems addressed during this encounter and other active Problems All Visits Onset Date Resolved Date Provider Condition S tatus Hemorrhoids Second Degree 10/25/2018 Davey Massey DO Active Last Documented On 10/25/2018 1:50PM ; [facility] Note: Unchanged 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 Patient will follow-up with her primary care physician to have repeat H&H. Patient was instructed to contact me if she should have any evidence of active GI bleed. All questions were answered, return to clinic as needed. - Last Documented On 11/26/2018 9:46AM ; [facility] Assessments Includes: Assessments from this encounter Findings - Iron deficiency anemia - Last Documented On 11/26/2018 9:46AM ; [facility] Medical Equipment - Implanted Devices Includes: Current Devices No Medical Equipment Recorded Medications Includes: Medications discussed during this encounter and other current Medications Discontinued / Stopped on this date on 09/26/2018 Omeprazole 20MG Oral Capsule Delayed Release Provider: Diagnosis: Last Documented On 9 10:25AM By Yancy Lobo MD ; [facility] Lisinopril 40 MG OR TABS Provider: Diagnosis: Last Documented On 9 10:26AM By Yancy Lobo MD ; [facility] Current Medications (continue as prescribed) Acidophilus Probiotic Oral Tablet 11/25/2018 Provide r: Diagnosis: Last Documented On 9 10:24AM By Yancy Lobo MD ; [facility] EQ Daily Fiber 400MG Oral Capsule 11/25/2018 Provide r: Diagnosis: Last Documented On 9 10:25AM By Yancy Lobo MD ; [facility] Esomeprazole Magnesium 40MG Oral Capsule Delayed Relea se 11/25/2018 Provider: Diagnosis: Last Documented On 9 10:25AM By Yancy Lobo MD ; [facility] Pravastatin Sodium 20MG Oral Tablet 11/25/2018 Provi veronica: Diagnosis: Last Documented On 9 10:26AM By Yancy Lobo MD ; [facility] amLODIPine Besylate 5MG Oral Tablet 11/25/2018 Provi veronica: Diagnosis: Last Documented On 9 10:26AM By Yancy Lobo MD ; [facility] Irbesartan-hydroCHLOROthiazide 150-12.5MG Oral Tablet 11/25/2018 Provider: Diagnosis: Last Documented On 9 10:27AM By Yancy Lobo MD ; [facility] Sucralfate 1GM Oral Tablet 11/04/2018 Provider: Diagnosis: Last Documented On 9 9:26AM By Yancy Lobo MD ; [facility] Fluticasone Propionate 0.05% External Cream 10/24/2018 Provider: Yancy Lobo MD Diagnosis: Hemorrhage of an us and rectum use as directed. apply to an al region tid Last Documented On 9 11:20AM By Yancy Lobo MD ; [facility] Dicyclomine HCl 20MG Oral Tablet 10/21/2018 Provider: Yancy Lobo MD Diagnosis: Generalized abdo tj pain 1 three times daily. Take as needed for abdominal pain Last Documented On 9 1:40PM By Yancy Lobo MD ; [facility] Requip 2 MG OR TABS 10/20/2008 Provider: Diagnosis: Last Documented On 9 3:20PM By Tarah Nichols CMA ; [facility] Past Medications on file predniSONE 20 MG Oral Tablet 12/02/2023 - 12/07/2023 Provider: Ford Charlton MD Diagnosis: Idiopathic gout, right ankle and foot 2 po qd Last Documented On 4 11:56AM By Ford Charlton MD ; [facility] Integra Plus Oral Capsule 11/04/2018 - 03/04/2019 Provider: Yancy Lobo MD Diagnosis: Iron deficiency anemia secondary to blood loss (chronic) 1 once daily Last Documented On 9 9:53AM By Yancy Lobo MD ; [facility] Triamcinolone Acetonide 0.1% EX CREA 09/09/2009 - 11/08/2009 Provider: Ko SENIOR NP Diagnosis: Pruritus, unspec Pharmacy to mix equal parts with sarna lotion. Last Documented On 0 1:57PM By ALEX Roberts ; [facility] traMADol HCl 50 MG OR TABS 10/20/2008 - 11/19/2008 [facility]: [facility] Diagnosis: Trochanteric/hip bursitis 1 po q hours prn. Take 1st d ose at night. Caution drowsiness or lightheadedness. Last Documented On 9 4:22PM By Michelle Worrell M.D. ; [facility] Medications Administered Includes: Administered Medications from this encounter No Administered Medications Recorded Vital Signs Includes: Vital Signs from this encounter Vital Name 11/25/2018 10:22A Blood Pressure Sitting L 132/70 BP Cuff Size Regular Pulse Rhythm Regular Height (in) 64 Weight (lb) 285 Body Mass Index (kg/m2) 48.9 Body Surface Area (m2) 2.3 Last Documented On: 11/25/2018 10:28AM ; [facility] Results Includes: Results discussed during this encounter COMPLETE BLOOD COUNT ORCHARD IHL Ordered [place] Yancy Lobo MD on 019 [id number] [place], [address] Collected: 11/19/2018 Report ed: 11/19/2018 10:21 tel:[phone] Last Documented On 9 3:37PM ; [facility] Reviewed by Yancy Lobo MD on 11/25/2018; All test results are final unless otherwise noted. Note: The above testing was complete at [facility], [address] [place] [id number] (CLIA#[id number]) BASO # 0.0 x10\^3/UL (0.0-0.2) None Last Documented On 9 3:37PM ; [facility] BASO% 0.4 % None Last Documented On 9 3:37PM ; [facility] EOS # 0.1 x10\^3/UL (0.0-0.7) None Last Documented On 9 3:37PM ; [facility] EOS% 1.1 % None Last Documented On 9 3:37PM ; [facility] HCT 33.1 % (37.0-47.0) L (Low) Last Documented On 9 3:37PM ; [facility] HGB 10.5 g/dL (12.0-16.0) L (Low) Last Documented On 9 3:37PM ; [facility] LYMPH# 2.2 x10\^3/UL (0.9-4.8) None Last Documented On 9 3:37PM ; [facility] LYMPH % 20.4 % None Last Documented On 9 3:37PM ; [facility] MCH 27.1 PG (27.0-31.0) None Last Documented On 9 3:37PM ; [facility] MCHC 31.7 g/dL (32.0-37.0) L (Low) Last Documented On 9 3:37PM ; [facility] MCV 85.5 fL (84.0-99.0) None Last Documented On 9 3:37PM ; [facility] MONO# 0.7 x10\^3/UL (0.0-1.1) None Last Documented On 9 3:37PM ; [facility] MONO% 6.2 % None Last Documented On 9 3:37PM ; [facility] NEUT # 7.6 x10\^3/UL (2.2-8.1) None Last Documented On 9 3:37PM ; [facility] NEUT % 71.2 % None Last Documented On 9 3:37PM ; [facility] PLT 450 x10\^3/UL (130-400) H (High) Last Documented On 9 3:37PM ; [facility] RBC 3.87 x10\^6/UL (4.10-5.30) L (Low) Last Documented On 9 3:37PM ; [facility] RDW 14.3 % (11.0-15.0) None Last Documented On 9 3:37PM ; [facility] WBC 10.7 x10\^3/UL (4.3-10.8) None Last Documented On 9 3:37PM ; [facility] History of Present Illness Includes: History of Present Illness from this encounter HPI The patient is a 63-year-old female who presents today for a follow-up visit. Patient had recent laboratory studies revealing a hemoglobin of 10.5. Today, she states that she has been feeling better. She has occasional epigastric discomfort. She admits to having nausea but denies vomiting. Patient denies having any fever, chills, melena, rectal bleeding. She states that her appetite is good. Social History Description Last Updated No tobacco use 10/25/2018 Last Documented On 9 10:22AM ; [facility] Alcohol use: 2 drinks or less per day Last Documented On 9 10:22AM ; [facility] Former smoker 10/25/2018 Last Documented On 9 10:22AM ; [facility] Never used drugs 10/25/2018 Last Documented On 9 10:22AM ; [facility] Retired from work 10/25/2018 Last Documented On 9 10:22AM ; [facility] AUDIT-C questionnaire was one 09/26/2018 Last Documented On 9 10:22AM ; [facility] Sun protective clothing 09/09/2009 Last Documented On 9 10:22AM ; [facility] Using sun protection 09/09/2009 Last Documented On 9 10:22AM ; [facility] Using sunscreen 09/09/2009 Last Documented On 9 10:22AM ; [facility] Wearing hat for sun protection 0 Last Documented On 9 10:22AM ; [facility] A social drinker on occasion 09/09/2009 Last Documented On 9 10:22AM ; [facility] Currently 09/09/2009 Last Documented On 9 10:22AM ; [facility] Lives with spouse /partner 09/09/2009 Last Documented On 9 10:22AM ; [facility] No previous history of smoking 0 Last Documented On 9 10:22AM ; [facility] Not currently employed 09/09/2009 Last Documented On 9 10:22AM ; [facility] Not exercising regularly 09/09/2009 Last Documented On 9 10:22AM ; [facility] Smoking Status Unknown Procedures and Surgical History Includes: Procedures from this encounter Procedures Code Diagnosis Performing Provider Service L ocation Service Date No Hospital Treatment Received Last Documented On 9 10:22AM ; [facility] Surgical History Last Updated No history of shoulder surgery 0 Last Documented On 9 10:22AM ; [facility] No history of surgery 09/09/2009 Last Documented On 9 10:22AM ; [facility] Medical History Includes: Medical History addressed during this encounter Description Last Updated Tubal ligation ~Hemorroidectomy ~Hystere ctomy 09/26/2018 Last Documented On 9 10:22AM ; [facility] History of basal cell carcinoma of the s kin reported 09/09/2009 Last Documented On 9 10:22AM ; [facility] History of skin cancer 09/09/2009 Last Documented On 9 10:22AM ; [facility] No history of skin disorder 09/09/2009 Last Documented On 9 10:22AM ; [facility] Patient reports no past medical/surgical history 09/09/2009 Last Documented On 9 10:22AM ; [facility] Family History Includes: Family History addressed during this encounter Description Last Updated Maternal history of a history of cancer 10/25/2018 Last Documented On 9 10:22AM ; [facility] Sororal history of a history of cancer 0 10/25/2018 Last Documented On 9 10:22AM ; [facility] Negative for colon cancer 09/26/2018 Last Documented On 9 10:22AM ; [facility] Maternal history of family history of ca ncer 09/26/2018 Last Documented On 9 10:22AM ; [facility] Sororal history of family history of can cer 09/26/2018 Last Documented On 9 10:22AM ; [facility] No family history of skin cancer 010 Last Documented On 9 10:22AM ; [facility] Review of Systems Includes: Review of Systems from this encounter CONSTITUTIONAL: Denies weakness, fatigue . ENMT: Denies bleeding, hoarseness CARDIOVASCULAR: Denies chest pain RESPIRATORY: Denies shortness of breath, dyspnea on exertion GASTROINTESTINAL: as above GENITOURINARY: Denies dysuria, hematuria. MUSCULOSKELETAL: Denies unusual joint pain, muscle pain, swelling, weakness, immobility or loss of function. NEUROLOGICAL: Denies headache, dizziness. HEMATOLOGIC/LYMPHATIC: Denies unusual bleeding, easy bruisability, or skin lumps. ALLERGIC/IMMUNOLOGIC: Denies hives. Functional Status Includes: Functional Status from this encounter No Functional Status Recorded Physical Exam Includes: Physical Exam from this encounter Allergies Includes: Active Allergies No Known Allergies Encounters Encounter Provider Location Date Check-In Time Check-Out Time Diagnosis GI Follow Up Visit Yancy Lobo MD [facility] 11/26/19 19 10:00AM 10:42AM Iron Deficiency Anemia Insurance Includes: Active Insurance Policies Plan Name Member ID Group # Subscriber Relationship Effect johana Dates - [employer] [id number] Rachel Figueroa Self Clinical Notes Includes: Clinical Notes from this encounter No Clinical Notes Recorded
--- OUTSIDE RECORDS SUMMARY | 2024-02-19 16:16 | XMS_ITS | Continuity of Care Document ---
Author Name Unknown Organization [facility] Address [address] [place] [address] Care Team Providers Care Lead Man [employer] Name Role Phone Kamilah Hurley Primary Care Physician Encounter [facility] Date(s): 12/29/22 - 12/29/[address] [phone] [place] Encounter Diagnosis Groin pain(Discharge Diagnosis) - 12/29/22 Muscle strain(Discharge Diagnosis) - 12/29/22 Discharge Disposition: Home or Self Care Attending Physician: Michel Pino MD Admitting Physician: Michel Pino MD Functional Status 12/29/22 Other exposure to Infectious Disease Non e Immunizations Given and Recorded Vaccine Date Status Refusal Reason SARS-CoV-2 (COVID-19) mRNA-1273 vaccine 01/13/21 R ecorded SARS-CoV-2 (COVID-19) mRNA-1273 vaccine 12/16/20 R ecorded Medications allopurinol 300 mg oral tablet 300 mg = 1 tab, Oral, Daily, # 30 tab, 0 Refill(s) Start Date: 12/29/22 Status: Ordered amLODIPine 5 mg =, Daily, 0 Refill(s) Start Date: 12/29/22 Status: Ordered cyclobenzaprine 5 mg oral tablet 5 mg = 1 tab, Oral, TID, PRN as needed for muscle spasm, # 30 tab, 0 Refill(s), 01/03/23 13:30:00 EDT, Pharmacy: [id number], 160, cm, 12/29/22 9:04:00 EDT, Height/Length Dosing, 127, kg, 12/29/22 9:04:00 EDT, Weight Dosing Start Date: 12/29/22 Stop Date: 01/03/23 Status: Ordered ezetimibe 10 mg =, Daily, 0 Refill(s) Start Date: 12/29/22 Status: Ordered naproxen 375 mg oral tablet 375 mg = 1 tab, Oral, BID, # 60 tab, 0 Refill(s), Pharmacy: [facility] [id number], 160, cm, 12/29/22 9:04:00 EDT, Height/Length Dosing, 127, kg, 12/29/22 9:04:00 EDT, Weight Dosing Start Date: 12/29/22 Status: Ordered omeprazole 40 mg =, Daily, 0 Refill(s) Start Date: 12/29/22 Status: Ordered rOPINIRole 2 mg oral tablet 2 mg = 1 tab, BID, 0 Refill(s) Start Date: 12/29/22 Status: Ordered Results Laboratory List Name Date CBC w/ Diff 12/29/22 Comprehensive Metabolic Panel (CMP) 12/29 Lipase Level 12/29/22 Urinalysis with Microscopic 12/29/22 Urinalysis Microscopic 12/29/22 Automated Diff 12/29/22 Most recent to oldest [Reference Range]: 1 WBC [5.0-10.0 x10^3/mcL] 8.0 x10^3/mcL (12/29/22 9:29 AM) RBC [4.1-5.3 x10^6/mcL] 4.6 x10^6/mcL (12/29/22 9:29 AM) Neutro Auto [40.0-75.0 %] 70.8 % (12/29/22 9:29 AM) Lymph Auto [20.0-50.0 %] 20.7 % (12/29/22 9:29 AM) Woods Auto [2.0-15.0 %] 6.9 % (12/29/22 9:29 AM) Basophil Auto [0.0-1.0 %] 0.2 % (12/29/22 9:29 AM) BUN [7-18 mg/dL] 21 mg/dL *HI* (12/29/22 9:29 AM) UA Color Yellow (12/29/22 AM) UA WBC [0-3] 0-3 (12/29/22: AM) Glucose Level [74-106 mg/dL] 135 mg/dL *HI* (12/29/22 AM) Potassium Level [3.5-5.1 mmol/L] 3.7 mmo l/L (12/29/22 AM) MCV [80.0-96.0] 95.4 (12/29/22 AM) UA Urobilinogen Normal (12/29/22 AM) UA Bili [Negative] Negative (12/29/22 AM) UA Ketones Negative (12/29/22 AM) AST [15-37 unit/L] 30 unit/L (12/29/22 AM) ALT [14-59 unit/L] 55 unit/L (12/29/22 AM) MCHC [31.0-35.0 g/dL] 32.8 g/dL (12/29/22 AM) Sodium Level [136-145 mmol/L] 138 mmol/L (12/29/22: AM) UA RBC [0-2] 0-2 (12/29/22 AM) UA Leuk Est Negative (12/29/22 AM) UA Nitrite Negative (12/29/22 AM) UA Glucose [Negative] Negative (12/29/22 AM) Hct [37.0-47.0 %] 43.6 % (12/29/22 AM) UA Bacteria None Seen /HPF (12/29/22 AM) Lipase Level [16-77 unit/L] 31 unit/L (12/29/22 AM) Calcium Level [8.5-10.1 mg/dL] 9.2 mg/dL (12/29/22 AM) Albumin Level [3.4-5.0 g/dL] 3.9 g/dL (12/29/22 AM) Protein Total [6.4-8.2 g/dL] 8.7 g/dL *HI* (12/29/22 AM) UA Protein Negative (12/29/22 AM) MCH [26.0-32.0 pg] 31.3 pg (12/29/22: AM) Neutro Absolute 5.7 x10^3/mcL *NA* (12/29/22 AM) Bilirubin Total [0.2-1.0 mg/dL] 0.3 mg/d L (12/29/22: AM) Hgb [12.0-16.0 g/dL] 14.3 g/dL (12/29/22: AM) Alk Phos [46-146 unit/L] 104 unit/L (12/29/22: AM) UA Blood Negative (12/29/22 AM) UA Mucous None Seen /HPF (12/29/22 AM) UA Spec Grav 1.015 *NA* (12/29/22: AM) Platelets [130-450 x10^3/mcL] 289 x10^3/ mcL (12/29/22: AM) CO2 [21-32 mmol/L] 29 mmol/L (12/29/22: AM) UA Squam Epithelial [None Seen] Few *ABN* (12/29/22 AM) UA pH 5.5 *NA* (12/29/22: AM) eGFR Non-AA [>=60] 63 (12/29/22 9: AM) eGFR AA [>=60] 63 (12/29/22: AM) UA Appear Clear (12/29/22 AM) Chloride Level [98-107 mmol/L] 100 mmol/ L (12/29/22: AM) RDW-CV [11.7-17.0 %] 13.9 % (12/29/22 9: AM) Imm Gran Auto [0.0-0.9 %] 0.2 % (12/29/22: AM) UA Culture Ind?. Not Indicated (12/29/22 AM) Creatinine Level [0.55-1.02 mg/dL] 0.98 mg/dL (12/29/22 9:29 AM) Eos, Auto [1.0-6.0 %] 1.2 % (12/29/22 9:29 AM) Vital Signs Most recent to oldest [Reference Range]: 1 2 3 Temperature Temporal Artery [36-38 Deg C] 36.6 Deg C (12/29/22 8:55 AM) Peripheral Pulse Rate [60-100 bpm] 75 bpm (12/29/22 12:47 PM) 71 bpm (12/29/22 10:33 AM) 77 bpm (12/29/22 8:55 AM) Respiratory Rate [12-24 br/min] 18 br/min (12/29/22 12:47 PM) 18 br/min (12/29/22 10:33 AM) 18 br/min (12/29/22 8:55 AM) Blood Pressure [90-140/60-90 mmHg] 151/81mmHg *HI* (12/29/22 12:47 PM) 154/72mmHg *HI* (12/29/22 10:33 AM) 183/89mmHg *HI* (12/29/22 8:55 AM) Mean Arterial Pressure Cuff 99 mmHg (12/29/22 12:47 PM) Weight Dosing 127.00 kg (12/29/22 9:04 AM) Weight Estimated 127.00 kg (12/29/22 8:55 AM) Height/Length Dosing 160.000 cm (12/29/22 9:04 AM) Height/Length Estimated 160.000 cm (12/29/22 8:55 AM) Social History Social History Type Response Tobacco Former tobacco user Tobacco Use:. Sex Female Hospital Discharge Instructions Patient Education 12/29/2022 12:01:22 Abdominal Pain, Adult Abdominal Pain, Adult Pain in the abdomen (abdominal pain) can be caused by many things. Often, abdominal pain is not serious and it gets better with no treatment or by being treated at home. However, sometimes abdominal pain is serious. Your health care provider will ask questions about your medical history and do a physical exam to try to determine the cause of your abdominal pain. Follow these instructions at home: Medicines ??? Take [id number] and prescription medicines only as told by your health care provider. ??? Do not take a laxative unless told by your health care provider. General instructions ??? Watch your condition for any changes. ??? Drink enough fluid to keep your urine pale yellow. ??? Keep all follow-up visits as told by your health care provider. This is important. Contact a health care provider if: ??? Your abdominal pain changes or gets worse. ??? You are not hungry or you lose weight without trying. ??? You are constipated or have diarrhea for more than 2???3 days. ??? You have pain when you urinate or have a bowel movement. ??? Your abdominal pain wakes you up at night. ??? Your pain gets worse with meals, after eating, or with certain foods. ??? You are vomiting and cannot keep anything down. ??? You have a fever. ??? You have blood in your urine. Get help right away if: ??? Your pain does not go away as soon as your health care provider told you to expect. ??? You cannot stop vomiting. ??? Your pain is only in areas of the abdomen, such as the right side or the left lower portion of the abdomen. Pain on the right side could be caused by appendicitis. ??? You have bloody or black stools, or stools that look like tar. ??? You have severe pain, cramping, or bloating in your abdomen. ??? You have signs of dehydration, such as: ??? Dark urine, very little urine, or no urine. ??? Cracked lips. ??? Dry mouth. ??? Sunken eyes. ??? Sleepiness. ??? Weakness. ??? You have trouble breathing or chest pain. Summary ??? Often, abdominal pain is not serious and it gets better with no treatment or by being treated at home. However, sometimes abdominal pain is serious. ??? Watch your condition for any changes. ??? Take [id number] and prescription medicines only as told by your health care provider. ??? Contact a health care provider if your abdominal pain changes or gets worse. ??? Get help right away if you have severe pain, cramping, or bloating in your abdomen. This information is not intended to replace advice given to you by your health care provider. Make sure you discuss any questions you have with your health care provider. Document Revised: 10/08/2020 Document Reviewed: 12/29/2019 [employer] Patient Education ?? 2021 [employer]. Follow Up Care 12/29/2022 08:55:32 With:Kamilah Hurley DO Address: [place] [phone]- When:2 to 4 days Physician Emergency department Note * Michel Pino MD: PERFORM, MODIFY, MODIFY, MODIFY, MODIFY Event Display: ED Note Physician Authored Date: RFAAT ORDAZ :1955 Age:67 years Sex:Female Visit Date:12/29/2022 Primary Care Physician: Kamilah Hurley DO Basic Information Time Seen: Michel Pino MD / 12/29/2022 09:09 Chief Complaint Pt c/o Jonathon lower quad pain. ??Started yesterday increased pain overnight. ??Abd pain radiates to lower back, down legs. Denies nausea, LBM today normal. History Of Present Illness: Presents emergency department complaining of lower??and right groin pain??that started yesterday??overnight. ??States the pain radiates to??the lower back and down to the right leg??denies??nausea vomiting denies hematuria denies??dysuria??denies??nausea or vomiting. ??States that he has good appetite and normal bowel movement??this morning Review of Systems: Constitutional: No fevers, chills, sweats Eye: No recent visual problems ENT: No ear pain, nasal congestion, sore throat Respiratory: No shortness of breath, cough Cardiovascular: No Chest pain, palpitations, syncope Gastrointestinal: No nausea, vomiting, diarrhea Genitourinary: No hematuria Caleb/Lymph: Negative for bruising tendency, swollen lymph glands Endocrine: Negative for excessive thirst, excessive hunger Musculoskeletal: No back pain, neck pain, joint pain, muscle pain, decreased range of motion Integumentary: No rash, pruritus, abrasions Neurologic: Alert & oriented X 4 Psychiatric: No anxiety, depression Physical Exam Vitals & Measurements T:??36.6?C ??(Temporal Artery)?? HR:??77??(Peripheral)?? RR:??18?? BP:??183/89?? SpO2:??96%?? HT:??160.000??cm?? WT:??127.00??kg??(Estimated)?? O2 Therapy:??Room air?? General: Alert and oriented, well nourished, no acute distress. Eye: PERRL, EOMI, normal conjunctiva. HENT: Normocephalic, clear tympanic membranes, normal hearing, moist oral mucosa, no scleral icterus, no sinus tenderness. Neck: Supple, non-tender, no carotid bruits, no JVD, no lymphadenopathy. Lungs: Clear to auscultation and percussion, non-labored respiration. Heart: Normal rate, regular rhythm, no murmur, gallop or edema. Breast: No lumps, no bumps, no scars, normal nipples. Abdomen: Soft, non-tender, non-distended, normal bowel sounds, no masses. Musculoskeletal: Normal range of motion and strength, no tenderness or swelling.?tenderness to palpation in the groin area??with normal??femoral and??popliteal pulses Skin: Skin is warm, dry and appropriate for ethnicity, no rashes or lesions. Neurologic: Awake, alert and oriented X4, CN II-XII intact. Psychiatric: Cooperative, appropriate mood and affect. Medical Decision Making: MDM: Summary: Presents emergency department complaining of??right groin pain that radiates to her legs??worse when she moves.?? Labs done and imaging studies??received analgesics in the emergency department ? Data Review Analysis All the data on this patient was reviewed by me including laboratory??and imaging studies??as well as bedside studies performed by me ?? Independent review of Studies Imaging CT scan of the abdomen/pelvis was done which shows no??abnormality in the groin normal appendix normal bone structure??no hernias??just incidental findings like diverticulosis??and hepatic steatosis Lab: Labs were done to include CBC chemistries??urinalysis and lipase which were all normal ?? Risk Stratification: EKG with??right groin pain??which seems to be??more musculoskeletal pressing on nerves creating radiculopathy??but at this time there is no intra- abdominal??issue there is no vascular issue. ? Differential Diagnosis: 1.?? Acute appendicitis 2.?? Inguinal hernia 3.?? Muscle strain with radiculopathy 4. 5. ? Consultants: ? Shared disposition: Patient with no intra-abdominal??injury??who??comes with right groin pain??radiating to her legs??worse when she moves most likely this is a??abductor muscle spasm with radiculopathy??rest of the labs are unremarkable. ?? Impression:? Procedure No Qualifying Data Assessment/Plan 1.??Groin pain??R10.30 Ordered: cyclobenzaprine 5 mg oral tablet, 5 mg = 1 tab, Oral, TID, PRN as needed for muscle spasm, # 30 tab, 0 Refill(s), 01/03/23 13:30:00 EDT, Pharmacy: [id number], 160, cm, 12/29/22 9:04:00 EDT, Height/Length Dosing, 127, kg, 12/29/22 9:04:00 EDT, Weight Dosing naproxen 375 mg oral tablet, 375 mg = 1 tab, Oral, BID, # 60 tab, 0 Refill(s), Pharmacy: [id number], 160, cm, 12/29/22 9:04:00 EDT, Height/Length Dosing, 127, kg, 12/29/22 9:04:00 EDT, Weight Dosing Discharge Patient, 12/29/22 13:02:00 EDT, Home Independently, Constant Indicator ?? 2.??Muscle strain??T14.8XXA Ordered: cyclobenzaprine 5 mg oral tablet, 5 mg = 1 tab, Oral, TID, PRN as needed for muscle spasm, # 30 tab, 0 Refill(s), 01/03/23 13:30:00 EDT, [id number], 160, cm, 12/29/22 9:04:00 EDT, Height/Length Dosing, 127, kg, 12/29/22 9:04:00 EDT, Weight Dosing naproxen 375 mg oral tablet, 375 mg = 1 tab, Oral, BID, # 60 tab, 0 Refill(s), Pharmacy: [id number], 160, cm, 12/29/22 9:04:00 EDT, Height/Length Dosing, 127, kg, 12/29/22 9:04:00 EDT, Weight Dosing Discharge Patient, 12/29/22 13:02:00 EDT, Home Independently, Constant Indicator ?? Orders: Peripheral IV Insertion, 12/29/22 9:25:00 EDT Patient Discharge Condition improved Discharge Disposition home Patient Education Abdominal Pain, Adult Follow Up With When Contact Information Kamilah Hurley DO Within 2 to [address] [address]- Additional Instructions: Medication Reconciliation New Prescription cyclobenzaprine (cyclobenzaprine 5 mg oral tablet)1 tab Oral (given by mouth) 3 times a day as needed as needed for muscle spasm. Refills: 0. ?? naproxen (naproxen 375 mg oral tablet)1 tab Oral (given by mouth) 2 times a day. Refills: 0. ?? Changed amLODIPine5 Milligrams every day. ?? [id number] Milligrams every day. ?? rOPINIRole (rOPINIRole 2 mg oral tablet)1 tab 2 times a day. ?? Unchanged allopurinol (allopurinol 300 mg oral tablet)1 tab Oral (given by mouth) every day. ?? [id number] Milligrams every day. Problem List/Past Medical History Ongoing No qualifying data Historical No qualifying data Allergies No active allergies Social History Electronic Cigarette/Vaping Electronic Cigarette Use: Never. Tobacco Former tobacco user Tobacco Use:. Diagnostic Results Diagnostic Study Interpretation: CT Abdomen and Pelvis w/ Contrast No PO PROCEDURE INFORMATION:?? Exam: CT Abdomen And Pelvis With Contrast?? Exam date and time: 12/29/2022 10:03 AM?? Age: 67 years old?? Clinical indication: Rlq lower abdominal pain.No history of trauma or?? recent surgery is provided.? TECHNIQUE:?? Imaging protocol: Computed tomography of the abdomen and pelvis with?? contrast. 1123image(s) are provided.?? Radiation optimization: All CT scans at this facility use at least?? one of these dose optimization techniques: automated exposure?? control; mA and/or kV adjustment per patient size (includes targeted?? exams where dose is matched to clinical indication); or iterative?? reconstruction.?? Contrast material: OMNIPAQUE 350; Contrast volume: 90 ml; Contrast?? route: INTRAVENOUS (IV); ?? Other technique: Axial images are available with sagittal and coronal?? reconstruction views. Automated dose exposure control is utilized.?? The DLP is 1625.8.? REPORTING DATA:?? Count of CT and Cardiac NM exams in prior 12 months: This patient has?? received 0 known CTs and 0 known cardiac nuclear medicine studies in?? the 12 months prior to the current study.? COMPARISON:?? 1. ?? CR XR HIP LT MIN 2V AND PELVIS 05/02/2021 9:31 AM. No previous?? abdomen is currently available.?? 2. ?? CR XR LS SPINE 2-3 VIEWS 05/02/2021 9:37 AM? FINDINGS:?? Lungs: No lobar consolidation is appreciated. There is minimal?? subsegmental atelectasis versus post inflammatory scarring?? demonstrated. There is some bronchovascular ground-glass thickening?? with nodular appearance for example measuring 4 x 5 mm lateral basal?? right lower lobe series 2, image 118. There is also some?? bronchovascular thickening present for example central left lower?? lobe and could also represent mucoid impacted bronchus series 2,?? image 81. For patients at low risk (minimal or absent history of?? smoking and of other known risk factors), no routine follow-up is?? indicated. For patients at high risk (history of smoking or of other?? known risk factors), consider optional CT Chest at 12 months.?? (Reference: Verena) ?? References: Verena Vaughn, et al. Guidelines for Management of?? Incidental Pulmonary Nodules Detected on CT Images: From the?? Fleischner Society 2017. Radiology. 2017;284(1):228-243. ?? Diaphragm: There is slight asymmetric right hemidiaphragm elevation.? Liver: There is some diffuse hepatic steatosis demonstrated.?? Gallbladder and bile ducts: There is some slight sludge type?? appearance of the gallbladder appearing slightly contracted overall.?? Pancreas: Unremarkable.?? Spleen: Unremarkable. ?? Adrenal glands: Unremarkable.?? Kidneys and ureters: There is homogeneous renal parenchymal?? enhancement demonstrated with no renal radiopaque obstructive?? calculus or hydronephrosis appreciated. ??There are some?? calcifications adjacent although appear to be phleboliths related. Stomach and bowel: Some aspects of the colon are undistended. This?? may also be peristaltic related.There is abundant stool present?? limiting mucosal detail evaluation. The bowel gas pattern appears?? nonobstructive overall. There is a small sliding-type hiatal hernia?? demonstrated with slight gastroesophageal fold thickening. There is?? some mild chronic diverticulosis demonstrated. There is some?? calcification suggestive of previous diverticular or epiploic?? inflammation on the left with no acute stranding currently?? appreciated.?? Appendix: No evidence of appendicitis.? Intraperitoneal space: No free air or free fluid collections are?? appreciated.?? Vasculature: No abdominal aortic aneurysmal dilatation or periaortic?? fluid is appreciated.?? Lymph nodes: Subcentimeter para-aortic and mesenteric lymph nodes are?? present. ??Some are borderline for example at the inguinal margins?? bilaterally.This can be seen with previous inflammation or adenitis?? sequela. Urinary bladder: The bladder is incompletely fluid filled for?? evaluation which may exagerate the wall thickness. This can also be?? seen with post inflammation sequela.?? Reproductive: There are hysterectomy changes present.?? Bones/joints: Osseous alignment is maintained.No displaced fracture?? or dislocation is appreciated. There is slightly decreased bone?? mineralization overall. There is some spurring with disc space?? narrowing most pronounced of the lumbosacral junction.?? Soft tissues: No radiopaque foreign body or subcutaneous emphysema is?? appreciated.? Other findings: There is some motion artifact present.? IMPRESSION:?? 1. ?? There is an unremarkable appearance of the appendix?? demonstrated.?? 2. ?? There is some diffuse hepatic steatosis demonstrated.?? 3. ?? There is some chronic diverticulosis with nonobstructive bowel?? gas appearance.?? 4. ?? Overall no fluid collections or acute inflammatory stranding?? changes are appreciated.? Report signed by: Malachi Stein On 12/29/2022 ??10:36:23 ? URL This document has an image ?? Result type:?CT Abdomen and Pelvis w/ Contrast No PO Result date:?December 29, 2022 10:03 EDT Result status:?Auth (Verified) Result title:?CT Abdomen and Pelvis w/ Contrast No PO Performed by:?DomainUser, Generated on December 29, 2022 10:03 EDT Verified by:?DomainUser, Generated on December 29, 2022 10:03 EDT Encounter info:?[id number], [facility], Emergency, 12/29/2022 -?? Contributor system:?[id number] ?? Lab Results CBC and Differential?? LATEST RESULTS?? HISTORICAL RESULTS?? WBC?? 12/29/22 09:29?? 8.0?? 08/07/22?? 8.2?? RBC?? 12/29/22 09:29?? 4.6?? 08/07/22?? 4.5?? Hgb?? 12/29/22 09:29?? 14.3?? 08/07/22?? 14.5?? Hct?? 12/29/22 09:29?? 43.6?? 08/07/22?? 44.2?? MCV?? 12/29/22 09:29?? 95.4?? 08/07/22?? 97.6 ??High?? MCH?? 12/29/22 09:29?? 31.3?? 08/07/22?? 32.0?? MCHC?? 12/29/22 09:29?? 32.8?? 08/07/22?? 32.8?? RDW-CV?? 12/29/22 09:29?? 13.9?? 08/07/22?? 13.6?? Platelets?? 12/29/22 09:29?? 289?? 08/07/22?? 300?? Neutro Auto?? 12/29/22 09:29?? 70.8?? 08/07/22?? 70.4?? Lymph Auto?? 12/29/22 09:29?? 20.7?? 08/07/22?? 21.6?? Woods Auto?? 12/29/22 09:29?? 6.9?? 08/07/22?? 6.1?? Eos, Auto?? 12/29/22 09:29?? 1.2?? 08/07/22?? 1.3?? Basophil Auto?? 12/29/22 09:29?? 0.2?? 08/07/22?? 0.4?? Imm Gran Auto?? 12/29/22 09:29?? 0.2?? 08/07/22?? 0.2?? Neutro Absolute?? 12/29/22 09:29?? 5.7?? 08/07/22?? 5.8? Routine Chemistry?? LATEST RESULTS?? HISTORICAL RESULTS?? Sodium Level?? 12/29/22 09:29?? 138?? 08/07/22?? 139?? Potassium Level?? 12/29/22 09:29?? 3.7?? 08/07/22?? 3.8?? Chloride Level?? 12/29/22 09:29?? 100?? 08/07/22?? 100?? CO2?? 12/29/22 09:29?? 29?? 08/07/22?? 29?? Alk Phos?? 12/29/22 09:29?? 104? AST?? 12/29/22 09:29?? 30? ALT?? 12/29/22 09:29?? 55? BUN?? 12/29/22 09:29?? 21 ??High?? 08/07/22?? 12?? Glucose Level?? 12/29/22 09:29?? 135 ??High?? 08/07/22?? 119 ??High?? Creatinine Level?? 12/29/22 09:29?? 0.98?? 08/07/22?? 0.96?? eGFR AA?? 12/29/22 09:29?? 63?? 08/07/22?? 65?? eGFR Non-AA?? 12/29/22 09:29?? 63?? 08/07/22?? 65?? Calcium Level?? 12/29/22 09:29?? 9.2?? 08/07/22?? 8.7?? Protein Total?? 12/29/22 09:29?? 8.7 ??High? Albumin Level?? 12/29/22 09:29?? 3.9? Bilirubin Total?? 12/29/22 09:29?? 0.3? Lipase Level?? 12/29/22 09:29?? 31? UA Macroscopic?? LATEST RESULTS?? UA Color?? 12/29/22 09:29?? Yellow?? UA Appear?? 12/29/22 09:29?? Clear?? UA Glucose?? 12/29/22 09:29?? Negative?? UA Bili?? 12/29/22 09:29?? Negative?? UA Ketones?? 12/29/22 09:29?? Negative?? UA Spec Grav?? 12/29/22 09:29?? 1.015?? UA Blood?? 12/29/22 09:29?? Negative?? UA pH?? 12/29/22 09:29?? 5.5?? UA Protein?? 12/29/22 09:29?? Negative?? UA Urobilinogen?? 12/29/22 09:29?? Normal?? UA Nitrite?? 12/29/22 09:29?? Negative?? UA Leuk Est?? 12/29/22 09:29?? Negative?? UA Culture Ind?.?? 12/29/22 09:29?? Not Indicated? UA Microscopic?? LATEST RESULTS?? UA WBC?? 12/29/22 09:29?? 0-3?? UA RBC?? 12/29/22 09:29?? 0-2?? UA Squam Epithelial?? 12/29/22 09:29?? Few Abnormal?? UA Mucous?? 12/29/22 09:29?? None Seen?? UA Bacteria?? 12/29/22 09:29?? None Seen? Electronically Signed on 12/29/22 01:53 PM Michel Pino MD Emergency department Discharge instructions * Michel Pino MD: PERFORM, MODIFY Event Display: ED Discharge Information Authored Date: [id number] RAFAT ORDAZ :1955 Age:67 years Sex:Female Visit Date:12/29/2022 Primary Care Physician: Kamilah Hurley DO Discharge Instructions We would like to thank you for allowing us to assist you with your healthcare needs. The following includes patient education materials and information regarding your injury/illness. Diagnosis from Today's Visit Groin pain Muscle strain Discharge Vitals Temperature??(Temporal Artery) 97.9 ??F (36.6 ??C) Heart Rate??(Peripheral) 75 Respiratory Rate?? 18 Blood Pressure?? 151/81?? Height?? 62.99 in (160.000 cm) Weight??(Estimated) 280.04 lb (127.00 kg) Allergies No active allergies What to Do Next You Need to Schedule the Following Appointments Follow Up with??Kamilah Hurley DO When:??Within 2 to 4 days Where: [address] [address]- You were treated today on an emergency basis; it may be ambrose to contact your primary care provider to notify them of your visit today. You may have been referred to your regular doctor or a specialist, please follow up as instructed. If your condition worsens or you can't get in to see the doctor, contact the Emergency Department. Medications What How Much When Why Instructions Next Dose New cyclobenzaprine (cyclobenzaprine 5 mg oral tablet) 1 tab Oral (given by mouth) 3 times a day as needed for as needed for muscle spasm Groin pain Muscle strain Pickup at [facility] 4156 New naproxen (naproxen 375 mg oral tablet) 1 tab Oral (given by mouth) 2 times a day Groin pain Muscle strain Pickup at Pending Sale To [facility] 4156 Changed amLODIPine 5 Milligrams Every day Changed omeprazole 40 Milligrams Every day Changed rOPINIRole (rOPINIRole 2 mg oral tablet) 1 tab 2 times a day Unchanged allopurinol (allopurinol 300 mg oral tablet) 1 tab Oral (given by mouth) Every day Unchanged ezetimibe 10 Milligrams Every day Pharmacy Information Pending Sale To [facility] 4156: [address] [place] [address] [phone] Education Materials Abdominal Pain, Adult Pain in the abdomen (abdominal pain) can be caused by many things. Often, abdominal pain is not serious and it gets better with no treatment or by being treated at home. However, sometimes abdominal pain is serious. Your health care provider will ask questions about your medical history and do a physical exam to try to determine the cause of your abdominal pain. Follow these instructions at home: Medicines ? Take kjxc-wfp-ovcxuye and prescription medicines only as told by your health care provider. ? Do not take a laxative unless told by your health care provider. General instructions ? Watch your condition for any changes. ? Drink enough fluid to keep your urine pale yellow. ? Keep all follow-up visits as told by your health care provider. This is important. Contact a health care provider if: ? Your abdominal pain changes or gets worse. ? You are not hungry or you lose weight without trying. ? You are constipated or have diarrhea for more than 2???3 days. ? You have pain when you urinate or have a bowel movement. ? Your abdominal pain wakes you up at night. ? Your pain gets worse with meals, after eating, or with certain foods. ? You are vomiting and cannot keep anything down. ? You have a fever. ? You have blood in your urine. Get help right away if: ? Your pain does not go away as soon as your health care provider told you to expect. ? You cannot stop vomiting. ? Your pain is only in areas of the abdomen, such as the right side or the left lower portion of the abdomen. Pain on the right side could be caused by appendicitis. ? You have bloody or black stools, or stools that look like tar. ? You have severe pain, cramping, or bloating in your abdomen. ? You have signs of dehydration, such as: ? Dark urine, very little urine, or no urine. ? Cracked lips. ? Dry mouth. ? Sunken eyes. ? Sleepiness. ? Weakness. ? You have trouble breathing or chest pain. Summary ? Often, abdominal pain is not serious and it gets better with no treatment or by being treated at home. However, sometimes abdominal pain is serious. ? Watch your condition for any changes. ? Take thvd-spo-dcbkzex and prescription medicines only as told by your health care provider. ? Contact a health care provider if your abdominal pain changes or gets worse. ? Get help right away if you have severe pain, cramping, or bloating in your abdomen. This information is not intended to replace advice given to you by your health care provider. Make sure you discuss any questions you have with your health care provider. Document Revised: 10/08/2020 Document Reviewed: 12/29/2019 [employer] Patient Education ?? 2021 [employer] Tests Performed Medications and Immunizations Administered Given morphine, 4 mg, IV Push sodium chloride 0.9% bolus, 1000 mL, IV Piggyback Toradol, 15 mg, IV Push Lab Test Name Test Result Date/Time WBC 8.0 x10^3/mcL 12/29/2022 09:29 EDT RBC 4.6 x10^6/mcL 12/29/2022 09:29 EDT Hgb 14.3 g/dL 12/29/2022 09:29 EDT Hct 43.6 % 12/29/2022 09:29 EDT MCV 95.4 12/29/2022 09:29 EDT MCH 31.3 pg 12/29/2022 09:29 EDT MCHC 32.8 g/dL 12/29/2022 09:29 EDT RDW-CV 13.9 % 12/29/2022 09:29 EDT Platelets 289 x10^3/mcL 12/29/2022 09:29 EDT Neutro Auto 70.8 % 12/29/2022 09:29 EDT Lymph Auto 20.7 % 12/29/2022 09:29 EDT Woods Auto 6.9 % 12/29/2022 09:29 EDT Eos, Auto 1.2 % 12/29/2022 09:29 EDT Basophil Auto 0.2 % 12/29/2022 09:29 EDT Imm Gran Auto 0.2 % 12/29/2022 09:29 EDT Neutro Absolute 5.7 x10^3/mcL 12/29/2022 09:29 EDT Sodium Level 138 mmol/L 12/29/2022 09:29 EDT Potassium Level 3.7 mmol/L 12/29/2022 09:29 EDT Chloride Level 100 mmol/L 12/29/2022 09:29 EDT CO2 29 mmol/L 12/29/2022 09:29 EDT Alk Phos 104 unit/L 12/29/2022 09:29 EDT AST 30 unit/L 12/29/2022 09:29 EDT ALT 55 unit/L 12/29/2022 09:29 EDT BUN 21 mg/dL 12/29/2022 09:29 EDT Glucose Level 135 mg/dL 12/29/2022 09:29 EDT Creatinine Level 0.98 mg/dL 12/29/2022 09:29 EDT eGFR AA 63 12/29/2022 09:29 EDT eGFR Non-AA 63 12/29/2022 09:29 EDT Calcium Level 9.2 mg/dL 12/29/2022 09:29 EDT Protein Total 8.7 g/dL 12/29/2022 09:29 EDT Albumin Level 3.9 g/dL 12/29/2022 09:29 EDT Bilirubin Total 0.3 mg/dL 12/29/2022 09:29 EDT Lipase Level 31 unit/L 12/29/2022 09:29 EDT UA Color YELLOW. 12/29/2022 09:29 EDT UA Appear CLEAR. 12/29/2022 09:29 EDT UA Glucose NEGATIVE 12/29/2022 09:29 EDT UA Bili NEGATIVE 12/29/2022 09:29 EDT UA Ketones NEGATIVE 12/29/2022 09:29 EDT UA Spec Grav 1.015 12/29/2022 09:29 EDT UA Blood NEGATIVE 12/29/2022 09:29 EDT UA pH 5.5 12/29/2022 09:29 EDT UA Protein NEGATIVE 12/29/2022 09:29 EDT UA Urobilinogen 0.2 Uro 12/29/2022 09:29 EDT UA Nitrite NEGATIVE 12/29/2022 09:29 EDT UA Leuk Est NEGATIVE 12/29/2022 09:29 EDT UA Culture Ind?. Not Indicated 12/29/2022 09:29 EDT UA WBC 0-3 12/29/2022 09:29 EDT UA RBC 0-2 12/29/2022 09:29 EDT UA Squam Epithelial Few 12/29/2022 09:29 EDT UA Mucous None Seen 12/29/2022 09:29 EDT UA Bacteria None Seen 12/29/2022 09:29 EDT Patient/Disability Case Manager Signature Patient Name:RAFAT ORDAZ I have received this information and my questions have been answered. Patient/Disability Case Manager Name: Patient/Disability Case Manager Signature: Relationship to Patient: Witness Name/Signature: Date: Electronically Signed on: 12/29/2022 13:03 EDTSigned by:LIONEL Emergency department Note * Joana Velasquez M: PERFORM Event Display: ED Notes Authored Date: [id number] Patient Care team information Care Team Personnel Name: Kamilah Hurley DO Position: No Access Member Role: Informed Provider Address: Address: [address] [address] Name: Mary Salazar Position: Nurse Member Role: ED Nurse Name: Michel Pino MD Position: Physician Member Role: ED Physician Address: Address: [address] [place] [id number] [place] Care Team Related Persons Name: JHOANA ORDAZ Address: Home [address] [place] [id number]
--- OUTSIDE RECORDS SUMMARY | 2024-02-19 16:16 | XMS_ITS | Clinical Summary ---
Author Name Unknown Address [address] [place] [address] Phone Organization [facility] Address [address] [place] [address] Phone Care Team Providers Care Elevator Technician Name Role Phone Amanuel MUÑIZ, Enrique Kohler Primary Care Provider [phone] Toni Balderrama DO Unavailable [phone] Yancy Lobo MD Unavailable [phone] Reason for Visit and Chief Complaint [facility] Lab Walkin Appointments Problems Includes: Problems addressed during this encounter and other active Problems All Visits Onset Date Resolved Date Provider Condition S tatus Hemorrhoids Second Degree 10/25/2018 Davey Massey DO Active Last Documented On 10/25/2018 1:50PM ; [facility] Note: Unchanged 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 09/29/2014 Toni Balderrama DO Active Last Documented On 09/29/2014 11:35AM ; [facility] Note: Unchanged Plan of Treatment No [...] 9 10:24AM By Yancy Lobo MD ; [facility] EQ Daily Fiber 400MG Oral Capsule 11/25/2018 Provide r: Diagnosis: Last Documented On 9 10:25AM By Yancy Lobo MD ; [facility] Esomeprazole Magnesium 40MG Oral Capsule Delayed Relea se 11/25/2018 Provider: Diagnosis: Last Documented On 9 10:25AM By Yancy Lobo MD ; [facility] Pravastatin Sodium 20MG Oral Tablet 11/25/2018 Provi veronica: Diagnosis: Last Documented On 9 10:26AM By Yancy Lobo MD ; [facility] amLODIPine Besylate 5MG Oral Tablet 11/25/2018 Provi veronica: Diagnosis: Last Documented On 9 10:26AM By Yancy Lobo MD ; [facility] Irbesartan-hydroCHLOROthiazide 150-12.5MG Oral Tablet 11/25/2018 Provider: Diagnosis: Last Documented On 9 10:27AM By Yancy Lobo MD ; [facility] Sucralfate 1GM Oral Tablet 11/04/2018 Provider: Diagnosis: Last Documented On 9 9:26AM By Yancy Lobo MD ; [facility] Fluticasone Propionate 0.05% External Cream 10/24/2018 Provider: Yancy Lobo MD Diagnosis: Hemorrhage of an us and rectum use as directed. apply to an al region tid Last Documented On 9 11:20AM By Yancy Lobo MD ; [facility] Dicyclomine HCl 20MG Oral Tablet 10/21/2018 Provider: Yancy Lobo MD Diagnosis: Generalized abdo tj pain 1 three times daily. Take as needed for abdominal pain Last Documented On 9 1:40PM By Yancy Lobo MD ; [facility] Requip 2 MG OR TABS 10/20/2008 Provider: Diagnosis: Last Documented On 9 3:20PM By Tarah Nichols CMA ; [facility] Medications Administered Includes: Administered Medications from [...] Location Date Check-In Time Check-Out Time Diagnosis [facility] Lab Walkin Appointments Jessica Fleming MD [facility] 11/20/19 19 8:15AM 9:12AM Insurance Includes: Active Insurance Policies Plan Name Member ID Group # Subscriber Relationship Effect johana Dates 1 - [employer] [id number] Rachel Figueroa Self Clinical Notes Includes: Clinical Notes from this encounter No Clinical Notes Recorded
--- OUTSIDE RECORDS SUMMARY | 2024-02-19 16:16 | XMS_ITS ---
Author Name Unknown Address [address] [place] [address] Phone Organization [facility] Address [address] [place] [address] Phone Care Team Providers Care Military Personnel Specialist Name Role Phone Amanuel MUÑIZ, Enrique Kohler Primary Care Provider [phone] Toni Balderrama DO Unavailable [phone] Yamil MUÑIZ, Yancy Lopez Unavailable [phone] Problems Includes: Active, inactive, and resolved Problems All Visits Onset Date Resolved Date Provider Condition S tatus Hemorrhoids Second Degree 10/25/2018 Davey Massey DO Active Last Documented On 10/25/2018 1:50PM ; [facility] Note: Unchanged 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 09/29/2014 Toni Balderrama DO Active Last Documented On 09/29/2014 11:35AM ; [facility] Note: Unchanged Plan of Treatment Pending Tests Order Diagnosis Results Due Ordering P kristin Lab GI PATHOLOGY 10/11/18 Yancy johnson MD Last Documented On 9 4:45PM ; [facility] Assessments Includes: Assessments for all patient encounters Findings Encounter Date Primary gout of ankle and foot [facility] New Patient with Ford Charlton MD 12/02/2023 Last Documented On 4 11:55AM ; [facility] Iron deficiency anemia GI Follow Up Visit with Edita Lobo MD 11/25/2018 Last Documented On 9 9:46AM ; [facility] Abdominal pain--epigastric GI Hospital Follow Up with Yancy Lobo MD 11/04/2018 Last Documented On 9 4:32PM ; [facility] Chronic gastritis GI Hospital Follow Up with Ginette Lobo MD 11/04/2018 Last Documented On 9 4:32PM ; [facility] Iron deficiency anemia GI Hospital Follow Up wit h Yancy Lobo MD 11/04/2018 Last Documented On 9 4:32PM ; [facility] Body Mass Index 45.0-49.9 adult Proctolo gy New Patient Visit with Davey Massey DO 10/25/2018 Last Documented On 9 1:51PM ; [facility] Second degree hemorrhoids Proctology New Patient Visit with Davey Massey DO 10/25/2018 Last Documented On 9 1:51PM ; [facility] Proctalgia GI Same Day Appointment with Ginette Lobo MD 10/24/2018 Last Documented On 9 1:11PM ; [facility] Rectal bleeding GI Same Day Appointment with Ginette Lobo MD 10/24/2018 Last Documented On 9 1:11PM ; [facility] Abdominal pain, generalized GI Procedure Follow Up with Yancy Lobo MD 10/21/2018 Last Documented On 9 3:16PM ; [facility] Change in bowel habits GI Procedure Follow Up wi th Yancy Lobo MD 10/21/2018 Last Documented On 9 3:16PM ; [facility] Diarrhea GI Procedure Follow Up with Jarred Lobo MD 10/21/2018 Last Documented On 9 3:16PM ; [facility] Change in bowel habits GI New Patient Requested with Yancy Lobo MD 09/26/2018 Last Documented On 9 2:49PM ; [facility] Diarrhea GI New Patient Requested with Antonella Lobo MD 09/26/2018 Last Documented On 9 2:49PM ; [facility] Rectal bleeding GI New Patient Requested with Antonella Lobo MD 09/26/2018 Last Documented On 9 2:49PM ; [facility] Subcutaneous lipoma of other sites Surge ry Post Op Visit with Toni Balderrama DO 10/15/2014 Last Documented On 5 9:24AM ; [facility] Subcutaneous lipoma of other sites Surge ry New Patient Visit with Toni Balderrama DO 09/29/2014 Last Documented On 5 8:34AM ; [facility] Medical Equipment - Implanted Devices Includes: Current and historical Devices No Medical Equipment Recorded Medications Includes: Current and historical Medications Current Medications (continue as prescribed) Acidophilus Probiotic Oral Tablet 11/25/2018 Provide r: Diagnosis: Last Documented On 9 10:24AM By Yancy Lobo MD ; [facility] EQ Daily Fiber 400MG Oral Capsule 11/25/2018 Provide r: Diagnosis: Last Documented On 9 10:25AM By Yancy Lobo MD ; [facility] Esomeprazole Magnesium 40MG Oral Capsule Delayed Relea se 11/25/2018 Provider: Diagnosis: Last Documented On 9 10:25AM By Yancy Lobo MD ; [facility] Pravastatin Sodium 20MG Oral Tablet 11/25/2018 Provi veronica: Diagnosis: Last Documented On 9 10:26AM By Yancy Lobo MD ; [facility] amLODIPine Besylate 5MG Oral Tablet 11/25/2018 Provi veronica: Diagnosis: Last Documented On 9 10:26AM By Yancy Lobo MD ; [facility] Irbesartan-hydroCHLOROthiazide 150-12.5MG Oral Tablet 11/25/2018 Provider: Diagnosis: Last Documented On 9 10:27AM By Yancy Lobo MD ; [facility] Sucralfate 1GM Oral Tablet 11/04/2018 Provider: Diagnosis: Last Documented On 9 9:26AM By Yancy Lobo MD ; [facility] Fluticasone Propionate 0.05% External Cream 10/24/2018 Provider: Yancy Lobo MD Diagnosis: Hemorrhage of an us and rectum use as directed. apply to an al region tid Last Documented On 9 11:20AM By Yancy Lobo MD ; [facility] Dicyclomine HCl 20MG Oral Tablet 10/21/2018 Provider: Yancy Lobo MD Diagnosis: Generalized abdo tj pain 1 three times daily. Take as needed for abdominal pain Last Documented On 9 1:40PM By Yancy Lobo MD ; [facility] Requip 2 MG OR TABS 10/20/2008 Provider: Diagnosis: Last Documented On 9 3:20PM By Tarah Nichols CMA ; [facility] Past Medications on file predniSONE 20 MG Oral Tablet 12/02/2023 - 12/07/2023 Provider: Ford Charlton MD Diagnosis: Idiopathic gout, right ankle and foot 2 po qd Last Documented On 4 11:56AM By Ford Charlton MD ; [facility] Integra Plus Oral Capsule 11/04/2018 - 03/04/2019 Provider: Yancy Lobo MD Diagnosis: Iron deficiency anemia secondary to blood loss (chronic) 1 once daily Last Documented On 9 9:53AM By Yancy Lobo MD ; [facility] Suprep Bowel Prep Kit 17.5-3.13-1.6 GM/177ML OR SOLN 09/26/2018 - 10/21/2018 Provider: Yancy Lobo MD Diagnosis: Hemorrhage of an us and rectum Last Documented On 9 1:13PM By Yancy Lobo MD ; [facility] Omeprazole 20MG Oral Capsule Delayed Release 9 - 11/25/2018 Provider: Diagnosis: Last Documented On 9 10:25AM By Yancy Lobo MD ; [facility] Triamcinolone Acetonide 0.1% EX CREA 09/09/2009 - 11/08/2009 Provider: Ko SENIOR NP Diagnosis: Pruritus, unspec Pharmacy to mix equal parts with sarna lotion. Last Documented On 0 1:57PM By ALEX Roberts ; [facility] NexIUM 40 MG OR CPDR 10/20/2008 - 09/26/2018 Provider: Diagnosis: Last Documented On 9 11:05AM By Yancy Lobo MD ; [facility] hydroCHLOROthiazide 25 MG TABS 10/20/2008 - 09/26/2018 Provider: Diagnosis: Last Documented On 9 11:05AM By Yancy Lobo MD ; [facility] Lisinopril 40 MG OR TABS 10/20/2008 - 11/25/2018 Provi veronica: Diagnosis: Last Documented On 9 10:26AM By Yancy Lobo MD ; [facility] traMADol HCl 50 MG OR TABS 10/20/2008 - 11/19/2008 [facility]: Trochanteric/hip bursitis 1 po q hours prn. Take 1st d ose at night. Caution drowsiness or lightheadedness. Last Documented On 9 4:22PM By Michelle Worrell M.D. ; [facility] Simvastatin 40 MG OR TABS 10/20/2008 - 09/26/2018 Prov ider: Diagnosis: Last Documented On 9 11:05AM By Yancy Lobo MD ; [facility] Citalopram Hydrobromide 20 MG OR TABS 10/20/2008 - Provider: Diagnosis: Last Documented On 9 11:05AM By Yancy Lobo MD ; [facility] Requip 1 MG OR TABS 10/20/2008 - 10/20/2008 Provider: Diagnosis: unsure of dose Last Documented On 9 3:20PM By Tarah Nichols CMA ; [facility] Medications Administered Includes: Administered Medications in patient's chart Medications Administered Diagnosis Date Pro vider dexAMETHasone Sod Phosphate PF 10 MG/ML IJ SOLN 12/02/2023 Ford Charlton MD [facility] [place] [id number] Last Documented On 4 12:01PM By Chrissie Vines ; [facility] Vital Signs Includes: Vital Signs from 02/18/2023 through 02/19/2024 Vital Name 12/02/2023 11:45A Blood Pressure Sitting (mmHg) 140/86 Pulse Rate-Sitting (bpm) 96 Respiration Rate (breaths/min) 18 Temp-Temporal 97.9 Height (in) 63.5 Weight (lb) 280 Body Mass Index 48.8 Body Surface Area 2.2 Oxygen Saturation (%) 99 Flow Rate (l/min) (None (Room Air)) FiO2 (%) 21 Last Documented On: 12/02/2023 11:49AM ; [facility] Results Includes: Results from 02/18/2023 through 02/19/2024 No Results Recorded For Specified Dates History of Present Illness History of Present Illness not supported for this document type No History of Present Illness Recorded Social History Description Last Updated No tobacco use 10/25/2018 Last Documented On 9 1:51PM ; [facility] Alcohol use: 2 drinks or less per day Last Documented On 9 1:51PM ; [facility] Former smoker 10/25/2018 Last Documented On 9 1:51PM ; [facility] Never used drugs 10/25/2018 Last Documented On 9 1:51PM ; [facility] Retired from work 10/25/2018 Last Documented On 9 1:51PM ; [facility] AUDIT-C questionnaire was one 09/26/2018 Last Documented On 9 2:49PM ; [facility] Sun protective clothing 09/09/2009 Last Documented On 0 7:27AM ; [facility] Using sun protection 09/09/2009 Last Documented On 0 7:27AM ; [facility] Using sunscreen 09/09/2009 Last Documented On 0 7:27AM ; [facility] Wearing hat for sun protection 0 Last Documented On 0 7:27AM ; [facility] A social drinker on occasion 09/09/2009 Last Documented On 0 7:27AM ; [facility] Currently 09/09/2009 Last Documented On 0 7:27AM ; [facility] Lives with spouse /partner 09/09/2009 Last Documented On 0 7:27AM ; [facility] No previous history of smoking 0 Last Documented On 0 7:27AM ; [facility] Not currently employed 09/09/2009 Last Documented On 0 7:27AM ; [facility] Not exercising regularly 09/09/2009 Last Documented On 0 7:27AM ; [facility] Smoking Status Unknown Procedures and Surgical History Surgical History Last Updated No history of shoulder surgery 0 Last Documented On 0 7:27AM ; [facility] No history of surgery 09/09/2009 Last Documented On 0 7:27AM ; [facility] Medical History Includes: Medical History in patient's chart Description Last Updated Tubal ligation ~Hemorroidectomy ~Hystere ctomy 09/26/2018 Last Documented On 9 2:49PM ; [facility] History of basal cell carcinoma of the s kin reported 09/09/2009 Last Documented On 0 7:27AM ; [facility] History of skin cancer 09/09/2009 Last Documented On 0 7:27AM ; [facility] No history of skin disorder 09/09/2009 Last Documented On 0 7:27AM ; [facility] Patient reports no past medical/surgical history 09/09/2009 Last Documented On 0 7:27AM ; [facility] Family History Includes: Family History in patient's chart Description Last Updated Maternal history of a history of cancer 10/25/2018 Last Documented On 9 1:51PM ; [facility] Sororal history of a history of cancer 0 10/25/2018 Last Documented On 9 1:51PM ; [facility] Negative for colon cancer 09/26/2018 Last Documented On 9 2:49PM ; [facility] Maternal history of family history of ca ncer 09/26/2018 Last Documented On 9 2:49PM ; [facility] Sororal history of family history of can cer 09/26/2018 Last Documented On 9 2:49PM ; [facility] No family history of skin cancer 010 Last Documented On 0 7:27AM ; [facility] Review of Systems Review of Systems not supported for this document type No Review of Systems Recorded Functional Status No Functional Status Recorded Physical Exam Physical Exam not supported for this document type No Physical Exam Recorded Allergies Includes: Active, inactive, and resolved Allergies No Known Allergies Encounters Includes: Encounters from 02/18/2023 through 02/19/2024 Encounter Provider Location Date Check-In Time Check-Out Time Diagnosis [facility] New Patient Ford Charlton MD [facility] 12/02/19 24 11/19/2018 11:30AM 12:02PM Gout Primary Ankle and Foot Insurance Includes: Active Insurance Policies Plan Name Member ID Group # Subscriber Relationship Effect johana Dates 1 - [employer] [id number] Rachel Figueroa Self Clinical Notes Includes: Signed Clinical Notes starting from 11/25/2022 * Progress note Date Encounter Last Documented by 12/02/2023 [facility] New Patient Last documented on 12/02/2023; 11:55 AM, Ford Charlton MD; [facility] Chief Complaint The Chief Complaint is: Right. [...]
--- OUTSIDE RECORDS SUMMARY | 2024-02-19 16:17 | XMS_ITS | Clinical Summary ---
Author Name Unknown Address [address] [place] [address] Phone Organization [facility] Address [address] [place] [address] Phone Care Team Providers Care Enrober Name Role Phone Amanuel MUÑIZ, Enrique Kohler Primary Care Provider [phone] Toni Balderrama DO Unavailable [phone] Yancy Lobo MD Unavailable [phone] Reason for Visit and Chief Complaint The Chief Complaint is: Patient is here for a 2 week follow up Problems Includes: Problems addressed [...] Healthcare Center Note: Unchanged Plan of Treatment In view of iron deficiency anemia, the patient will be given iron supplements. Will repeat laboratory studies in about 3 weeks. Patient was advised to contact me if she should have any evidence of active GI bleed. All questions were answered, return to clinic in 3 weeks. - Last Documented On 11/04/2018 4:32PM ; [facility] Assessments Includes: Assessments from this encounter Findings - Chronic gastritis - Last Documented On 11/04/2018 4:32PM ; [facility] - Abdominal pain--epigastric - Last Documented On 11/04/2018 4:32PM ; [facility] - Iron deficiency anemia - Last Documented On 11/04/2018 4:32PM ; [facility] Medical Equipment - Implanted Devices Includes: Current Devices No Medical Equipment Recorded Medications Includes: Medications discussed during this encounter and other current Medications New / Renewed during this visit Yacny Lobo MD on 11/04/2018 Integra Plus Oral Capsule Provider: Antonella Lobo MD 30 day supply: 30 capsule, 3 refills Diagnosis: Iron deficiency anemia secondary to blood loss (chronic) 1 once daily [facility] [facility] [address] [address] , [place], [address] - Last Documented On 9 9:53AM By Yancy Lobo MD ; [facility] Current Medications (continue as prescribed) Acidophilus [...] Charlton MD ; [facility] Triamcinolone Acetonide 0.1% EX CREA 09/09/2009 - 11/08/2009 Provider: Ko SENIOR NP Diagnosis: Pruritus, unspec Pharmacy to mix equal parts with sarna lotion. Last Documented On 0 1:57PM By ALEX Roberts ; [facility] traMADol HCl 50 MG OR TABS 10/20/2008 - 11/19/2008 [facility]: [facility] Diagnosis: Trochanteric/hip bursitis 1 po q hours prn. Take 1st d ose at night. Caution drowsiness or lightheadedness. Last Documented On 9 4:22PM By Michelle Worrell M.D. ; [facility] Medications Administered Includes: Administered Medications from this encounter No Administered Medications Recorded Vital Signs Includes: Vital Signs from this encounter Vital Name 11/04/2018 09:21A Blood Pressure Sitting R 122/68 BP Cuff Size Regular Pulse Rhythm Regular Height (in) 64 Weight (lb) 284 Body Mass Index (kg/m2) 48.7 Body Surface Area (m2) 2.3 Last Documented On: 11/04/2018 9:28AM ; [facility] Results Includes: Results discussed during this encounter No Results Recorded For Specified Dates History of Present Illness Includes: History of Present Illness from this encounter HPI The patient is a 62-year-old female who presents today for a follow-up visit. Patient states that she developed severe abdominal pain for which she went to the hospital October 26, 2018. She subsequently underwent an inpatient upper endoscopy on October 27, 2018 which revealed gastritis in questionable Li's esophagus. There was noted be a small hiatal hernia. Biopsy from the stomach was negative for H pylori. Biopsy from the GE junction was negative for Li's. Results of the upper endoscopy was explained to the patient. Today, the patient states that she has been feeling better. She states that her previous diarrhea has resolved and she currently has 1-2 solid bowel movement daily. She denies having any nausea, vomiting, fever chills. She states that her appetite is good and she denies having any dysphagia. The patient did have laboratory studies and was found to be anemic. She is not currently taking any iron supplements. Social History Description Last Updated No tobacco use 10/25/2018 Last Documented On 9 9:21AM ; [facility] Alcohol use: 2 drinks or less per day Last Documented On 9 9:21AM ; [facility] Former smoker 10/25/2018 Last Documented On 9 9:21AM ; [facility] Never used drugs 10/25/2018 Last Documented On 9 9:21AM ; [facility] Retired from work 10/25/2018 Last Documented On 9 9:21AM ; [facility] AUDIT-C questionnaire was one 09/26/2018 Last Documented On 9 9:21AM ; [facility] Sun protective clothing 09/09/2009 Last Documented On 9 9:21AM ; [facility] Using sun protection 09/09/2009 Last Documented On 9 9:21AM ; [facility] Using sunscreen 09/09/2009 Last Documented On 9 9:21AM ; [facility] Wearing hat for sun protection 0 Last Documented On 9 9:21AM ; [facility] A social drinker on occasion 09/09/2009 Last Documented On 9 9:21AM ; [facility] Currently 09/09/2009 Last Documented On 9 9:21AM ; [facility] Lives with spouse /partner 09/09/2009 Last Documented On 9 9:21AM ; [facility] No previous history of smoking 0 Last Documented On 9 9:21AM ; [facility] Not currently employed 09/09/2009 Last Documented On 9 9:21AM ; [facility] Not exercising regularly 09/09/2009 Last Documented On 9 9:21AM ; [facility] Smoking Status Unknown Procedures and Surgical History Includes: Procedures from this encounter Procedures Code Diagnosis Performing Provider Service L ocation Service Date discharge medications reconciled with current medication list The discharge medication list from the inpatient facility was reviewed and the patient's current medication list was reconciled and updated, including OTC and herbals. All medications are oral unless otherwise specified [id number] Last Documented On 9 9:28AM ; [facility] Hospital Treatment Received Last Documented On 9 9:28AM ; [facility] Surgical History Last Updated No history of shoulder surgery 0 Last Documented On 9 9:21AM ; [facility] No history of surgery 09/09/2009 Last Documented On 9 9:21AM ; [facility] Medical History Includes: Medical History addressed during this encounter Description Last Updated Tubal ligation ~Hemorroidectomy ~Hystere ctomy 09/26/2018 Last Documented On 9 9:21AM ; [facility] History of basal cell carcinoma of the s kin reported 09/09/2009 Last Documented On 9 9:21AM ; [facility] History of skin cancer 09/09/2009 Last Documented On 9 9:21AM ; [facility] No history of skin disorder 09/09/2009 Last Documented On 9 9:21AM ; [facility] Patient reports no past medical/surgical history 09/09/2009 Last Documented On 9 9:21AM ; [facility] Family History Includes: Family History addressed during this encounter Description Last Updated Maternal history of a history of cancer 10/25/2018 Last Documented On 9 9:21AM ; [facility] Sororal history of a history of cancer 0 10/25/2018 Last Documented On 9 9:21AM ; [facility] Negative for colon cancer 09/26/2018 Last Documented On 9 9:21AM ; [facility] Maternal history of family history of ca ncer 09/26/2018 Last Documented On 9 9:21AM ; [facility] Sororal history of family history of can cer 09/26/2018 Last Documented On 9 9:21AM ; [facility] No family history of skin cancer 010 Last Documented On 9 9:21AM ; [facility] Review of Systems Includes: Review of [...] Date Check-In Time Check-Out Time Diagnosis GI Hospital Follow Up Yancy Lobo MD [facility] 11/05/19 19 9:15AM 9:47AM Iron Deficiency Anemia,Abdomin al Pain--epigastr ic,Gastritis Chronic Insurance Includes: Active Insurance Policies Plan Name Member ID Group # Subscriber Relationship Effect johana Dates - [employer] [id number] Rachel Figueroa Self Clinical Notes Includes: Clinical Notes from this encounter No Clinical Notes Recorded
[2024-02-19 16:35] LABS: Bacteria Rare HPF (Negative); C & S Indicated? No/Sq. Contamination; Casts Negative LPF (Negative); Crystals Negative HPF (Negative); Epithelial Cells Moderate HPF (Negative); Mucus Negative (Negative); Other Cells Rare Transitional (Negative); RBC Negative HPF (0-2)
== END 2024-02-19 16:13 | disposition home or self-care (01) ==
PROVIDERS: PCP Student in an Organized Health Care Education/Training Program; Visit Provider Nurse Practitioner
DX: I10 Essential (primary) hypertension; E78.2 Mixed hyperlipidemia; Z01.818 Encounter for other preprocedural examination
CPT/HCPCS: 36415; 80053; 85027; 81003; 81015; 85610; 85730

== ENCOUNTER → 2024-02-21 10:02 | Outpatient (BNVA) | payer MEDICARE, SELFPAY | PROVIDERS: PCP Student in an Organized Health Care Education/Training Program; Referring Provider Student in an Organized Health Care Education/Training Program; Visit Provider Student in an Organized Health Care Education/Training Program | DX: K92.2 Gastrointestinal hemorrhage, unspecified (principal); Z12.11 Encounter for screening for malignant neoplasm of colon | CPT/HCPCS: 99214 ==

== ENCOUNTER 2024-03-05 08:21 | Day surgery (SDC) | payer MEDICARE, SELFPAY ==
[2024-03-05 08:35] VITALS: BP 151/74; PULSE 79; RESP 16; TEMP 36.3; O2SAT 96
[2024-03-05] MEDS: Lactated Ringers 1,000 ML 80 ML IV (09:13)
--- NOTE | 2024-03-05 09:59 | W.PM.ENDDOP ---
Date of service: 03/05/24 Time of Service: 09:59 Endoscopy Report PROCEDURE DESCRIPTION: PROCEDURES PERFORMED: 1. EGD with biopsies\ 2. Cold forceps polypectomy PREOPERATIVE DIAGNOSIS: GI bleeding POSTOPERATIVE DIAGNOSIS: Mild chronic gastritis, stomach polyps, small type I sliding hiatal hernia SURGEON: Layla Cabral MD INDICATION FOR PROCEDURE: 68-year-old woman who sees blood in her stools from time to time. This has been going on for a long time and no one has found answers. FINDINGS: D2/D3 = normal D1/bulb = normal - no ulcers or inflammation Pylorus = normal Antrum = mildly/chronically inflamed appearance diffusely. Cold forceps biopsies taken to rule out H. pylori routinely Body = grossly normal appearance. Fundus = normal, a few scattered benign?appearing polyps Cardia = normal Hiatus = small type I sliding hiatal hernia (about 1-2 cm slide) Hill grade 2 defect. Distal esophagus = mild inflammation, but no esophagitis, no Li's, no stricture. Cold forceps biopsies taken routinely. Mid esophagus = normal Proximal esophagus/hypopharynx/vocal cords = normal SURVEILLANCE-INTERVAL/FOLLOW-UP: Follow-up with PCP - no cause found to explain GI bleeding Specimens: Yes EBL: Minimal COMPLICATIONS: None Procedure in detail: The patient gave written consent and was in agreement with the indications, the potential risks as well as the benefits of the procedure. The patient was taken to the endoscopy suite and laid on their left side. Anesthesia was given which was tolerated well. We performed a timeout and we are in agreement I started the procedure. A well-lubricated endoscope was gently and carefully advanced down the esophagus, into the stomach the scope was and through the pylorus into the duodenum. The scope was then slowly withdrawn with the above-noted findings/interventions. The patient tolerated the procedure well and was then turned for colonoscopy (see separate procedure note).
--- NOTE | 2024-03-05 09:59 | W.COLOREPORT ---
Date of service: 03/05/24 Time of Service: 09:59 Colonoscopy Report Procedure Description: PROCEDURES PERFORMED: 1. Colonoscopy with cold forceps biopsy PREOPERATIVE DIAGNOSIS: GI bleeding POSTOPERATIVE DIAGNOSIS: Grade 2 internal hemorrhoids, moderate external hemorrhoid disease, sigmoid diverticulosis SURGEON: Layla Cabral MD INDICATION FOR PROCEDURE: The patient is a 68-year-old woman who is morbidly obese (BMI 52) who has been having bleeding on and off per rectum for many years. She says no one can find the answers. FINDINGS: Normal terminal ileum. Biopsies taken here to rule out IBD (not suspected). Mild/minimal sigmoid diverticular disease. Grade 2 internal hemorrhoids present. Moderate external hemorrhoids present. No polyps. SURVEILLANCE interval/FOLLOW-UP: 10 years SPECIMENS: None EBL: Minimal COMPLICATIONS: None QUALITY of prep: Excellent Procedure in detail: The patient gave written consent and was in agreement with the indications, the potential risks as well as the benefits of the procedure. She was turned from endoscopy and kept asleep and I started the colonoscopy portion of the procedure. Digital rectal and visual examination was performed and moderate external hemorrhoid disease was appreciated. A well-lubricated flexible colonoscope was then introduced and passed without any notable difficulty all the way to the cecum identified by the ileocecal valve and the appendiceal orifice. The terminal ileum was deeply intubated and looked normal. The scope was then slowly withdrawn with the above-noted findings. The patient tolerated the procedure well and then we did hemorrhoid banding. (See separate procedure note).
--- NOTE | 2024-03-05 10:04 | ANES.PREOP_ITS ---
General Info Date of Service Date Performed: 03/05/24 Height: 5 ft 3.5 in Weight: 136.4 kg Body Mass Index (BMI): 52.4 Surgical Procedure: Operation Date: 03/05/24 10:05 Proposed Procedure Side Surgeon p Colonoscopy/Gastroscopy & possible Hemorrhoid Banding Efrain Cabral MD Meds Allergies and Home Medications Allergies Allergy/AdvReac Type Severity Reaction Status Date / Time amlodipine AdvReac Mild itch Verified 03/05/24 09:00 diltiazem AdvReac Mild Itchy Verified 03/05/24 09:00 Home Medication Medication Instructions Recorded betamethasone, augmented 0.05 % See Rx Instructions topical BID PRN 04/08/21 topical gel albuterol sulfate 90 mcg/actuation 2 puff inhalation QID PRN 01/18/23 aerosol inhaler (ProAir HFA) shortness of breath or wheezing #8.5 grams naproxen 500 mg tablet 500 mg PO BID PRN inflammation, 01/18/23 muscle aches #60 tabs cyclobenzaprine 10 mg tablet 10 mg PO HS PRN muscle spasm #10 02/01/23 tabs Pulse Oximeter #1 ea 02/02/23 carbamide peroxide 6.5 % ear drops 5 drp otic (ear) DAILY 4 days #15 06/29/23 (Debrox) mL fluocinolone acetonide oil 0.01 % 5 drp otic (ear) BID itchy, 06/29/23 ear drops (Flac Otic (ear) Oil) scratched ear canal 14 days #20 mL allopurinol 300 mg tablet 300 mg PO DAILY #90 tabs 08/22/23 bupropion HCl 300 mg 24 hr tablet, 300 mg PO QAM #90 tabs 10/07/23 extended release ropinirole 2 mg tablet 2 mg PO BID #180 tabs 12/14/23 irbesartan 150 1 tab PO BID #90 tab-caps 12/23/23 mg-hydrochlorothiazide 12.5 mg tablet furosemide 40 mg tablet 40 mg PO DAILY PRN edema, leg 12/28/23 swelling, shortnes of breath #90 tabs omeprazole 40 mg capsule,delayed 40 mg PO DAILY #90 caps 01/17/24 release semaglutide 1 mg/dose (4 mg/3 mL) 1 mg subcut QWEEK for DM, E11.9 01/17/24 subcutaneous pen injector bisacodyl 5 mg tablet,delayed 5 mg PO ONCE Colonoscopy Bowel 02/21/24 release Prep #4 tabs polyethylene glycol 3350 17 238 g PO ONCE #238 grams 02/21/24 gram/dose oral powder Current Visit Medications: Current Medications Generic Name Dose Route Start Last Admin Trade Name [place] PRN Reason Stop Dose Admin Ringer's Solution 1,000 mls @ 80 mls/hr 03/05/24 06:00 03/05/24 09:13 IV 04/03/24 23:59 80 mls/hr INFUSION RAQUEL Administration IV Miscellaneous Supplies 1 each 03/05/24 06:00 Iv Access IV 04/03/24 23:59 DIRECTED RAQUEL Sodium Chloride 0 ml 03/05/24 06:00 Normal Saline Flush 10 Ml Syr IV 04/03/24 23:59 PRN PRN Sodium Chloride 0 ml 03/05/24 06:00 Normal Saline 10 Ml Vial IJ 04/03/24 23:59 DIRECTED PRN Sterile Water 0 ml 03/05/24 06:00 Water,Injection,Sterile 10 Ml Vial IJ 04/03/24 23:59 DIRECTED PRN PFSH Active Problems Active Problems: Problem Status Onset Code 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 01/03/24 M48.00 Lumbar spondylolysis 01/03/24 M43.06 GI bleeding K92.2 Occult blood positive stool R19.5 Cerumen impaction H61.20 Difficulty demonstrating health literacy Z55.6 Poor compliance with medication Z91.148 At risk for polypharmacy Z91.89 Uncontrolled morning headache R51.9 Edema R60.9 Diabetes mellitus E11.9 Hypertension, essential, benign I10 NAFL (nonalcoholic fatty liver) 04/01/14 K76.0 Hyperlipidemia E78.5 Hx of smoking Z87.891 Abnormal finding on imaging R93.89 Incidental lung nodule, > 3mm and < 8mm R91.1 Cervical spondylosis M47.812 Chronic right shoulder pain M25.511, G89.29 Osteoarthritis of spine with radiculopathy, cervical region M47.22 Tendonitis of long head of biceps brachii of right shoulder M75.21 Rotator cuff tear, right M75.101 Numbness and tingling of upper extremity R20.0, R20.2 Cervical arthritis M47.812 Calcific tendinitis M65.20 Muscle spasm M62.838 Low iron stores R79.0 Myalgia M79.10 SOB (shortness of breath) on exertion R06.02 Abdominal pain R10.9 History of GI bleed Z87.19 BRBPR (bright red blood per rectum) K62.5 Frequent bowel movements R19.4 Gastroesophageal reflux disease K21.9 Spondylosis M47.9 Chronic bilateral low back pain without sciatica 07/19/07 M54.5, G89.29 Pain of lower extremity M79.606 Left hip pain M25.552 Low back pain M54.5 Sciatic pain M54.30 Pyogenic granuloma of skin ~02/2021 L98.0 BMI 50.0-59.9, adult Z68.43 Fibromyalgia M79.7 Polyneuropathy G62.9 Gout M10.9 Restless leg syndrome G25.81 Insomnia G47.00 Obstructive sleep apnea G47.33 Non-restorative sleep 02/02/16 G47.8 Anxiety F41.9 Medical History Medical History Right arm pain Ortho Dx, Tendonitis, Rot Cuff Tear. Injection, 07/2022. No injury: internal rot and flexion is very painful COVID-19 per home test, Oct 2021 (in [place]) Myalgia after COVID-19 vaccination Ptosis of both upper eyelids Impaired fasting glucose 05/2019: 116 History of acute bronchitis with bronchospasm (04/01/14) Cataract 06/11/12 intraocular lens implant left 04/23/02 intraocular lens implant right Rash possible dermatomyositis on biopsy; negative w/u for rheumatologic disease Morbid obesity with BMI of 45.0-49.9, adult (04/01/14) Basal cell carcinoma of skin of other parts of face (06/28/17) Dr alexandria Upton right auricle Abnormal mammogram (03/22/12) Oval mass in CC view only in posterior lateral region (L) breast probably lymph node Surgical History Surgical History History of colonoscopy History of shoulder surgery (07/04/23) [facility] - Distal Clavicle Resection, Right Status post total abdominal hysterectomy and bilateral salpingo-oophorectomy (09/01/10) S/P shoulder surgery (10/05/14) fatty tumor removed S/P Mohs surgery for basal cell carcinoma (01/07/14) rgt marleny tangential shave right auricle (06/28/17) 06/28/17-[facility] Dermatology,Alexandria Upton MD Ligation of fallopian tube Oophrectomy, Both Abdominal hysterectomy Extraction of cataract Tobacco Smoking/Tobacco Use Status: Former Tobacco Use Passive smoking exposure: No Alcohol Alcohol Intake: current Alcohol intake frequency: holidays/special occasions only Substance Use Substance use: Never Substance use type: does not use Vital Signs and Lab Results Vital Signs Most Recent Vital Signs in EMR: Most Recent Vital Signs Temp Pulse Resp BP Pulse Ox 36.3 C L 79 16 151/74 H 96 03/05/24 08:35 03/05/24 08:35 03/05/24 08:35 03/05/24 08:35 03/05/24 08:35 Lab Results Blood Type / Crossmatch: No Data to Display Complete Blood Count: White Blood Count 11.53 10^3/uL (4.4-10.8) H 02/19/24 14:34 Red Blood Count 4.45 10^6/uL (3.93-5.22) 02/19/24 14:34 Hemoglobin 13.7 g/dL (11.2-15.7) 02/19/24 14:34 Hematocrit 41.5 % (36.0-46.0) 02/19/24 14:34 Platelet Count 292 10^3/uL (130-400) 02/19/24 14:34 Complete Metabolic Panel: Sodium 138 mmol/L (136-145) 02/19/24 14:34 Potassium 3.6 mmol/L (3.5-5.1) 02/19/24 14:34 Chloride 100 mmol/L (98-107) 02/19/24 14:34 Carbon Dioxide 26.7 mmol/L (21.0-32.0) 02/19/24 14:34 BUN 18 mg/dL (7-18) 02/19/24 14:34 Creatinine 1.2 mg/dL (0.55-1.02) H 02/19/24 14:34 Est GFR (CKD-EPI 2020) 49.00 (mL/min/1.73m2) 02/19/24 14:34 Calcium 9.3 mg/dL (8.5-10.1) 02/19/24 14:34 Albumin 3.7 g/dL (3.4-5.0) 02/19/24 14:34 Glucose 101 mg/dL (74-106) 02/19/24 14:34 Hemoglobin A1c 6.0 % (4.5-5.7) H 02/19/24 14:00 Liver Function Panel: Alanine Aminotransferase (ALT/SGPT) 21 U/L (14-59) 02/19/24 14: 34 Aspartate Amino Transf (AST/SGOT) 14 U/L (15-37) L 02/19/24 14: 34 Coagulation Panel: INR International Normalized Ratio 1.0 (0.9-1.1) 02/19/24 14:3 4 Prothrombin Time 10.1 sec (9.1-11.1) 02/19/24 14:34 Activated Partial Thromboplast Time 25.2 sec (23.6-32.8) 14:34 Cardiac Panel: No Data to Display Arterial Blood Gas: No Data to Display Venous Blood Gas: No Data to Display Pancreas Panel: No Data to Display Thyroid Panel: No Data to Display Infectious Disease: No Data to Display Blood Cultures: No Data to Display Toxicology Panel: No Data to Display Imaging and Studies Imaging and Studies Study information below may be from another EMR and interpreted by another provider. Please see original notes in EMR for more complete details. EKG Summary: 02/19/24: Exam: Resting ECG Reason for Exam: pre op exam Patient Location: O HR:80 bpm ECG Measurements Heart Rate 80 AXIS KS 203 P 7 QRSd 92 QRS 19 QT 370 T37 QTc 427 Conclusion Sinus rhythm...normal P axis, V-rate 50- 99 Low voltage, precordial leads...precordial leads <1.0mV Otherwise normal ECG Echocardiogram Summary: 03/30/23: Conclusion Normal left ventricular wall thickness and chamber size. Ejection fraction is 55 to 60%. Wall motion is normal Normal right ventricular size and systolic function Both atria are normal in size Aortic valve is sclerotic. Number of aortic valve leaflets could not be accurately determined. There is no aortic stenosis or regurgitation Right ventricular systolic pressure could not be estimated Anesthesia Assessment and Plan Anesthesia History Personal History: No History of Anesthesia Complications Family History: No Family History of Anesthesia Complications Exercise Tolerance Exercise Tolerance: Metabolic Equivalents>4 Cardiac & Pulmonary Exam Cardiac Exam: Normal S1/S2 Heart Sounds Pulmonary Exam: Clear Bilateral Breath Sounds Implantable Cardiac Device Does patient have a Pacemaker or an ICD?: No Airway Exam Known Difficult Airway: No Mallampati Class: 1 Mouth Opening: Normal (> 3cm) Thyromental Distance: Greater than 3 cm Neck Range of Motion: Full ROM Neck Circumference: Thick Teeth Condition: Normal Dentition ASA Classification ASA Score: ASA 3 Emergency Case?: No NPO Status NPO Status: NPO Clears >2 hours, Solids >8 hours Anesthesia Plan Resuscitation Status: Full Code Anesthesia Technique: General Anesthesia Airway Planned: Natural Airway Monitors Used: Standard Monitors
[2024-03-05 10:08] VITALS: BMI 52.4
--- NOTE | 2024-03-05 10:23 | STOM_PTH ---
PATIENT: Rachel Figueroa LOC: [facility] U#:[id number] AGE/SX: 68/F ROOM: RE03/05/[address]: Efrain Cabral : 1955 BED: DIS: 03/05/2024 SPEC #: [id number] RECD: 03/05/24 12:58 STATUS: ISIDROJuan RE #: [id number] LAZARO: 03/05/24 10:[address]: Efrain Cabral DEPT: Surgical Specimen RECD BY: Kim Florence ENTERED: 03/05/24 13:00 SP TYPE: STOMACH OTHR DR: Kamilah Hurley DO Tissues: 1 - STOMACH BIOPSY 2 - STOMACH BIOPSY 3 - ESOPHAGUS BIOPSY 4 - BIOPSY BOWEL Procedures: GROSS AND MICRO LEVEL 4 Comments: [id number]
[2024-03-05 10:48] VITALS: BP 128/77; PULSE 77; RESP 16; TEMP 36.1; O2SAT 97
--- NOTE | 2024-03-05 10:49 | W.PM.DSUDISC ---
Date of service: 03/05/24 Time of Service: 10:49 Discharge Plan Disposition Patient Disposition: Home Condition: Good Discharge Details Attending Provider: Efrain Cabral Primary Care Provider: Kamilah Hurley Home Meds and New Rx's Prescriptions: No Action albuterol sulfate [ProAir HFA] 90 mcg/actuation HFA aerosol inhaler 2 puff IH QID PRN (Reason: shortness of breath or wheezing) Qty: 8.5 1RF naproxen 500 mg tablet 500 mg PO BID PRN (Reason: inflammation, muscle aches) Qty: 60 1RF Hold Instructions: Pt Stopped/Never Started Rx Instructions: Take 2/day for next 5 days with food for shoulder/neck stiffness/pain cyclobenzaprine 10 mg tablet 10 mg PO HS PRN (Reason: muscle spasm) Qty: 10 1RF Hold Instructions: Pt Stopped/Never Started Rx Instructions: For URGENT neck mm spasm (DME) Pulse Oximeter See Rx Instructions .Route .MEDSUPPLY Qty: 1 0RF Rx Instructions: As directed, for daily oxygenation monitoring. Call PCP office if consistently < 92%. omeprazole 40 mg capsule,delayed release(DR/EC) 40 mg PO DAILY Qty: 90 3RF semaglutide 1 mg/dose (4 mg/3 mL) pen injector 1 mg subcut QWEEK Rx Instructions: Tolerated re-trial; increased to 1mg fluocinolone acetonide oil [Flac Otic Oil] 0.01 % drops 5 drp otic (ear) BID 14 Days Qty: 20 1RF Rx Instructions: Trial for 1 week for itching ear canal Debrox 6.5 % drops 5 drp otic (ear) DAILY 4 Days Qty: 15 1RF bisacodyl 5 mg tablet,delayed release (DR/EC) 5 mg PO ONCE Qty: 4 0RF Rx Instructions: Per Colonoscopy bowel prep instructions polyethylene glycol 3350 17 gram/dose powder 238 g PO ONCE Qty: 238 0RF Rx Instructions: For Colonoscopy bowel prep, as directed by office betamethasone, augmented 0.05 % gel See Rx Instructions Topical BID PRN Rx Instructions: 50 grams topical twice a day PRN; 12/18/16 Silvia Vital MD. allopurinol 300 mg tablet 300 mg PO DAILY Qty: 90 3RF Hold Instructions: no gout; polypharmacy bupropion HCl 300 mg tablet extended release 24 hr 300 mg PO QAM MDD 300mg Qty: 90 3RF Hold Instructions: Pt Stopped/Never Started Rx Instructions: Continue with 300mg, NOW SINGLE PILL ropinirole 2 mg tablet 2 mg PO BID Qty: 180 3RF Rx Instructions: 1 tab in am; 1 tab in pm irbesartan-hydrochlorothiazide 150-12.5 mg tablet 1 tab PO BID Qty: 90 3RF Rx Instructions: re-start INSTEAD of lisinopril furosemide 40 mg tablet 40 mg PO DAILY PRN (Reason: edema, leg swelling, shortnes of breath) Qty: 90 1RF Rx Instructions: Increased dose, WHEN NEEDED FOR SWELLING Discharge Instructions Additional Instructions: FINDINGS: On upper endoscopy, some mild inflammation was found. Is probably related to bile reflux. You can discuss further with your PCP or schedule follow-up appointment in the office to go over this common but benign condition. On colonoscopy, a couple of small polyps were found and removed. They are nothing to worry about. This is why we do the colonoscopies. You should repeat another colonoscopy probably in 5 years because of your family history. Activity:: Activity as Tolerated Diet:: As Tolerated Discharge Orders Discharge Orders: Discharge Order (Routine); Ordered 03/05/24 Ordered By: Efrain Cabral
--- NOTE | 2024-03-05 11:02 | W.PM.DSUDISC ---
Date of service: 03/05/24 Time of Service: 11:18 Discharge Plan Disposition Patient Disposition: Home Condition: Good Discharge Details Attending Provider: Efrain Cabral Primary Care Provider: Kamilah Hurley Home Meds and New Rx's Prescriptions: No Action albuterol sulfate [ProAir HFA] 90 mcg/actuation HFA aerosol inhaler 2 puff IH QID PRN (Reason: shortness of breath or wheezing) Qty: 8.5 1RF naproxen 500 mg tablet 500 mg PO BID PRN (Reason: inflammation, muscle aches) Qty: 60 1RF Hold Instructions: Pt Stopped/Never Started Rx Instructions: Take 2/day for next 5 days with food for shoulder/neck stiffness/pain cyclobenzaprine 10 mg tablet 10 mg PO HS PRN (Reason: muscle spasm) Qty: 10 1RF Hold Instructions: Pt Stopped/Never Started Rx Instructions: For URGENT neck mm spasm (DME) Pulse Oximeter See Rx Instructions .Route .MEDSUPPLY Qty: 1 0RF Rx Instructions: As directed, for daily oxygenation monitoring. Call PCP office if consistently < 92%. omeprazole 40 mg capsule,delayed release(DR/EC) 40 mg PO DAILY Qty: 90 3RF semaglutide 1 mg/dose (4 mg/3 mL) pen injector 1 mg subcut QWEEK Rx Instructions: Tolerated re-trial; increased to 1mg fluocinolone acetonide oil [Flac Otic Oil] 0.01 % drops 5 drp otic (ear) BID 14 Days Qty: 20 1RF Rx Instructions: Trial for 1 week for itching ear canal Debrox 6.5 % drops 5 drp otic (ear) DAILY 4 Days Qty: 15 1RF bisacodyl 5 mg tablet,delayed release (DR/EC) 5 mg PO ONCE Qty: 4 0RF Rx Instructions: Per Colonoscopy bowel prep instructions polyethylene glycol 3350 17 gram/dose powder 238 g PO ONCE Qty: 238 0RF Rx Instructions: For Colonoscopy bowel prep, as directed by office betamethasone, augmented 0.05 % gel See Rx Instructions Topical BID PRN Rx Instructions: 50 grams topical twice a day PRN; 12/18/16 Silvia Vital MD. allopurinol 300 mg tablet 300 mg PO DAILY Qty: 90 3RF Hold Instructions: no gout; polypharmacy bupropion HCl 300 mg tablet extended release 24 hr 300 mg PO QAM MDD 300mg Qty: 90 3RF Hold Instructions: Pt Stopped/Never Started Rx Instructions: Continue with 300mg, NOW SINGLE PILL ropinirole 2 mg tablet 2 mg PO BID Qty: 180 3RF Rx Instructions: 1 tab in am; 1 tab in pm irbesartan-hydrochlorothiazide 150-12.5 mg tablet 1 tab PO BID Qty: 90 3RF Rx Instructions: re-start INSTEAD of lisinopril furosemide 40 mg tablet 40 mg PO DAILY PRN (Reason: edema, leg swelling, shortnes of breath) Qty: 90 1RF Rx Instructions: Increased dose, WHEN NEEDED FOR SWELLING Discharge Instructions Additional Instructions: FINDINGS: On upper endoscopy, there were no ulcers, there was some chronic inflammation but nothing severe. A few benign?appearing stomach polyps were present. Nothing to worry about. They would not explain the bleeding. A very small hiatal hernia is present. This is related to being overweight. On colonoscopy, everything looked healthy. No polyps were found. No cause for bleeding. Biopsies were taken of your small intestine routinely. You have some moderate hemorrhoid disease. Banding was performed as we discussed. You have some very mild diverticular disease which could possibly cause bleeding but unlikely since it is so mild. Overall, no certain cause for bleeding was identified. You should probably follow-up with your PCP to discuss capsule endoscopy. Activity:: Activity as Tolerated Diet:: As Tolerated Discharge Orders Discharge Orders: Discharge Order (Routine); Ordered 03/05/24 Ordered By: Efrain Cabral
[2024-03-05] MEDS: Acetaminophen 500 MG TAB 1000 MG PO (11:11)
[2024-03-05 11:37] VITALS: BP 115/89; PULSE 71; RESP 16; TEMP 36.1; O2SAT 98
--- NOTE | 2024-03-05 12:58 | W.ANESPOSTOP ---
Postoperative Evaluation Date, Time and Location Date Performed: 03/05/24 Time Performed: 11:31 Patient Location: Day Surgery Unit Vital Signs Most Recent Imported Vital Signs: Most Recent Vital Signs Temp Pulse Resp BP Pulse Ox 36.1 C L 71 16 115/89 98 03/05/24 11:37 03/05/24 11:37 03/05/24 11:37 03/05/24 11:37 03/05/24 11:37 Pain Score Most Recent Pain Score: Most Recent Pain Score Pain Level 5 03/05/24 11:37 Assessment Mental Status: Awake (Alert & Oriented to Patient Baseline) Airway and Respiratory Function: Patent airway with normal (patient baseline) respiratory exam Cardiovascular Function: Hemodynamically Stable Hydration Status: Adequately Hydrated Nausea & Vomiting: No Nausea or Vomiting Pain: Pt. Denies Any Pain Peripheral Nerve Block: Patient did not receive a nerve block
--- NOTE | 2024-03-05 22:38 | W.PM.OP ---
Date of service: 03/05/24 Time of Service: 11:30 Operative Note Operative Note Refer to Anesthesia Record Procedure Description: PROCEDURES PERFORMED: 1. Anoscopy 2. Internal hemorrhoid banding x2 PREOPERATIVE DIAGNOSIS: Rectal bleeding, grade 2 internal hemorrhoids, moderate external hemorrhoids POSTOPERATIVE DIAGNOSIS: Same SURGEON: Layla Cabral MD INDICATION FOR PROCEDURE: 68-year-old woman who complains of on and off rectal bleeding for years. On colonoscopy, significant internal hemorrhoid disease found in addition to moderate external disease. FINDINGS: Moderate external hemorrhoid disease, normal anal canal, grade 2 internal hemorrhoids present in the right anterior column and in the left lateral column. These 2 columns were banded. SURVEILLANCE interval/FOLLOW-UP: Not needed. SPECIMENS: None EBL: Minimal COMPLICATIONS: None Procedure in detail: The patient gave written consent and was in agreement with the indications, the potential risks as well as the benefits of the procedure. The colonoscope was removed (see separate procedure note) and I started the banding/anoscopy portion of the procedure. A well-lubricated anoscope was gently introduced. Moderate external hemorrhoids are present. The anal canal was carefully inspected and appeared normal. Internal hemorrhoid disease was readily visible. Banding was performed in usual fashion. The patient tolerated the procedure well and was taken to the PACU in hemodynamically stable condition.
== END 2024-03-05 11:53 | disposition home or self-care (01) ==
PROVIDERS: PCP Student in an Organized Health Care Education/Training Program; Visit Provider Student in an Organized Health Care Education/Training Program
PROC: (CPT 45380; principal; 2024-03-05 10:00)
DX: Z12.11 Encounter for screening for malignant neoplasm of colon (principal); K44.9 Diaphragmatic hernia without obstruction or gangrene; K29.70 Gastritis, unspecified, without bleeding; K31.7 Polyp of stomach and duodenum; K57.30 Diverticulosis of large intestine without perforation or abscess without bleeding; K64.1 Second degree hemorrhoids
CPT/HCPCS: 45380; 45398; 43239; 00123; 88305

== ENCOUNTER 2024-05-01 11:09 | Outpatient (CLI) | payer MEDICARE, SELFPAY ==
[2024-05-01 11:31] LABS: Abs Immature Grans 0.02 10^3/uL (0.0-0.06); Absolute Basophil Count 0.02 10^3/uL (0.0-0.2); Absolute Eosinophil Count 0.12 10^3/uL (0.0-0.7); Absolute Lymphocyte Count 1.68 10^3/uL (1.2-3.4); Absolute Monocyte Count 0.44 10^3/uL (0.1-0.8); Absolute Neutrophil Count 7.59 10^3/uL (1.2-6.7); Basophils % 0.2 %; Eosinophils % 1.2 %; HCT 37.9 % (36.0-46.0); HGB 12.8 g/dL (11.2-15.7); Immature Grans % 0.2 %; MCH 31.3 pg (27.0-33.0); MCHC 33.8 % (32.0-36.0); MCV 93 fL (80-95); MPV 10.5 fL (8.0-11.0); Monocytes % 4.5 %; Neutrophils % 76.9 %; Platelet Count 292 10^3/uL (130-400); RBC 4.09 10^6/uL (3.93-5.22); RDW 14.4 % (11.7-14.6); RDW-SD 49.3 fL; WBC 9.87 10^3/uL (4.4-10.8)
[2024-05-01 12:04] LABS: Folate 15.1 ng/mL (8.6-20.0)
[2024-05-01 12:12] LABS: Iron 40 ug/dL (50-170); Total Iron Binding Capacity 367 ug/dL (250-450); Transferrin Sat 11 % (15-50)
[2024-05-01 12:17] LABS: ALT 24 U/L (14-59); AST 15 U/L (15-37); Albumin 3.3 g/dL (3.4-5.0); Alkaline Phosphatase 114 U/L (46-116); Anion Gap 12.2 mmol/L (3-11); BUN 21 mg/dL (7-18); Bilirubin, Total 0.37 mg/dL (0.2-1.0); CO2 25.8 mmol/L (21.0-32.0); CREATININE 1.3 mg/dL (0.55-1.02); Calcium 8.5 mg/dL (8.5-10.1); Calculated LDL 176 mg/dL (<100); Chloride 101 mmol/L (98-107); Cholesterol 246 mg/dL (<200); Estimated GFR 44.51 (mL/min/1.73m2); Ferritin 116 ng/mL (8-252); Glucose 133 mg/dL (74-106); HDL Cholesterol 47 mg/dL (40-60); Potassium 3.2 mmol/L (3.5-5.1); Sodium 139 mmol/L (136-145); Total Protein 7.9 g/dL (6.4-8.2); Triglyceride 115 mg/dL (<150); Vitamin B12 277 pg/mL (193-986); Vitamin D 25 Total 26.3 ng/mL (30-100)
[2024-05-01 12:26] LABS: Bilirubin, Direct 0.1 mg/dL (0.0-0.2)
== END 2024-05-01 11:10 | disposition home or self-care (01) ==
LOC: LBO 11:10
PROVIDERS: PCP Student in an Organized Health Care Education/Training Program; Visit Provider Student in an Organized Health Care Education/Training Program
DX: R53.83 Other fatigue (principal); K21.9 Gastro-esophageal reflux disease without esophagitis; K92.2 Gastrointestinal hemorrhage, unspecified; I10 Essential (primary) hypertension; R73.9 Hyperglycemia, unspecified; K90.9 Intestinal malabsorption, unspecified; Z86.2 Personal history of diseases of the blood and blood-forming organs and certain disorders involving the immune mechanism; R06.02 Shortness of breath; Z13.220 Encounter for screening for lipoid disorders
CPT/HCPCS: 36415; 80048; 80061; 80076; 82306; 82607; 82728; 82746; 83540; 83550; 84443; 85025

== ENCOUNTER 2024-05-30 08:44 | Outpatient (CLI) | payer MEDICARE, SELFPAY ==
[2024-05-30 09:24] LABS: Anion Gap 8.5 mmol/L (3-11); BUN 16 mg/dL (7-18); CO2 29.5 mmol/L (21.0-32.0); CREATININE 1.2 mg/dL (0.55-1.02); Calcium 8.1 mg/dL (8.5-10.1); Chloride 99 mmol/L (98-107); Glucose 97 mg/dL (74-106); Sodium 137 mmol/L (136-145)
[2024-05-30 09:27] LABS: Potassium 2.9 mmol/L (3.5-5.1)
[2024-05-30 09:28] LABS: Hemoglobin A1C 5.9 % (<5.7)
== END 2024-05-30 08:45 | disposition home or self-care (01) ==
LOC: LBO 08:44
PROVIDERS: Emergency Medicine; PCP Student in an Organized Health Care Education/Training Program; Visit Provider Student in an Organized Health Care Education/Training Program
DX: I10 Essential (primary) hypertension (principal); E11.9 Type 2 diabetes mellitus without complications
CPT/HCPCS: 36415; 80048; 83036

== ENCOUNTER 2024-06-26 01:39 | Outpatient (CLI) | payer MEDICARE, SELFPAY ==
--- NOTE | 2024-06-26 07:20 | DI.CTLCSR_ITS ---
Exam(s) CT CHEST LUNG CANCER SCREEN EXAM: CT CHEST LUNG CANCER SCREEN CLINICAL HISTORY: Screening for lung cancer,former smoker, z87.891 TECHNIQUE: Imaging Protocol: Axial computed tomography images with coronal and sagittal reformatted images were created and reviewed. Computer aided detection (CAD) was utilized. COMPARISON: CT CT CHEST WO from 07/03/[address] CHEST LUNG CANCER SCREEN from 06/13/2023 FINDINGS: Tracheobronchial tree: Patent where visualized. No bronchiectasis. Pulmonary parenchyma: No consolidation or dominant measurable mass. No architectural distortion. Ther e are stable perifissural nodules. Lung Nodules: There is a stable 7 mm left lower lobe nodule (series 2, image 99). There is a stable 4 mm nodule in the superior segment of the left lower lobe (series 2, image 59). There is a stable 4 mm nodule in the right lower lobe (series 2, image 109). No new pulmonary nodules. Mediastinum and Wendy: No dominant adenopathy or fluid collection. The esophagus is unremarkable. Thyroid gland: Unremarkable. Lymph nodes: Unremarkable. Pleura: No effusion or pneumothorax. Heart: The heart is not dilated. Three vessel coronary artery calcification is present. No pericardi al effusion. Aorta: Thoracic aorta non-dilated.Atherosclerotic calcification is present. Upper abdomen: Unremarkable. Soft Tissues: Unremarkable. Bones: Within normal limits. IMPRESSION: No new pulmonary nodules. Stable pulmonary nodules. Lung RADS Cat 2 - Benign Appearance / Behavior: Nodules with a very low likelihood of becoming a clin ically active cancer due to size or lack of growth Lung-RADS 1.0 CATEGORIES: Category 0 - Prior chest CT exam(s) being located for comparison. Category 1 - Annual screening in 12 months. No nodules or definitely benign nodules. Category 2 - Annual screening in 12 months. Benign appearance. Nodules with low likelihood of becomin g active cancer. Category 3 - 6-month follow-up. Probably benign. Short-term follow-up suggested. Nodules with low lik elihood of becoming active cancer. Category 4A - 3-month follow-up and CT/PET if >8 mm in size. Suspicious finding. Findings which requi re additional testing. Category 4B - Findings which require additional testing and tissue sampling. Suspicious finding. Category 4X - Category 3 or 4 nodules with additional features or imaging findings that increases the suspicion of malignancy. Modifier S- Potentially clinically significant finding. (Non lung cancer) RADIATION DOSE DELIVERED: 100.12mGy.cm Total DLP 100.12mGy.cmTotal DLP DATA REPOSITORY: All CT scans at this facility are submitted to the National Radiology Data Registry (NRDR) Dose Index Registry (DIR) with the [employer] ([employer]). RADIATION OPTIMIZATION: All CT scans at this facility use at least one of these dose optimization te chniques: automated exposure control; mA and/or kV adjustment per patient size (includes targeted exa ms where dose is matched to clinical indication); or iterative reconstruction.
== END 2024-06-26 01:59 ==
LOC: DI 01:39
PROVIDERS: PCP Student in an Organized Health Care Education/Training Program; Visit Provider Student in an Organized Health Care Education/Training Program
DX: Z12.2 Encounter for screening for malignant neoplasm of respiratory organs (principal); Z87.891 Personal history of nicotine dependence
CPT/HCPCS: 71271

== ENCOUNTER 2024-06-26 14:55 | Outpatient (CLI) | payer MEDICARE, SELFPAY ==
[2024-06-26 16:04] LABS: Anion Gap 8.9 mmol/L (3-11); BUN 20 mg/dL (7-18); CO2 30.1 mmol/L (21.0-32.0); CREATININE 1.3 mg/dL (0.55-1.02); Calcium 8.8 mg/dL (8.5-10.1); Chloride 102 mmol/L (98-107); Estimated GFR 44.51 (mL/min/1.73m2); Glucose 98 mg/dL (74-106); Potassium 3.3 mmol/L (3.5-5.1); Sodium 141 mmol/L (136-145)
== END 2024-06-26 14:56 | disposition home or self-care (01) ==
LOC: LBO 14:56
PROVIDERS: PCP Student in an Organized Health Care Education/Training Program; Visit Provider Student in an Organized Health Care Education/Training Program
DX: I10 Essential (primary) hypertension (principal); E87.6 Hypokalemia; N17.9 Acute kidney failure, unspecified
CPT/HCPCS: 36415; 80048

== ENCOUNTER 2024-07-17 12:40 | Outpatient (CLI) | payer MEDICARE, SELFPAY ==
[2024-07-17 11:37] LABS: Abs Immature Grans 0.03 10^3/uL (0.0-0.06); Absolute Basophil Count 0.03 10^3/uL (0.0-0.2); Absolute Eosinophil Count 0.07 10^3/uL (0.0-0.7); Absolute Lymphocyte Count 1.93 10^3/uL (1.2-3.4); Absolute Monocyte Count 0.47 10^3/uL (0.1-0.8); Basophils % 0.3 %; Eosinophils % 0.7 %; HCT 40.4 % (36.0-46.0); HGB 13.3 g/dL (11.2-15.7); Immature Grans % 0.3 %; Lymphocytes % 19.6 %; MCH 30.6 pg (27.0-33.0); MCHC 32.9 % (32.0-36.0); MCV 93 fL (80-95); MPV 10.1 fL (8.0-11.0); Monocytes % 4.8 %; Neutrophils % 74.3 %; Platelet Count 345 10^3/uL (130-400); RBC 4.34 10^6/uL (3.93-5.22); RDW 14.1 % (11.7-14.6); WBC 9.83 10^3/uL (4.4-10.8)
[2024-07-17 12:04] LABS: Anion Gap 8.2 mmol/L (3-11); BUN 18 mg/dL (7-18); CO2 31.8 mmol/L (21.0-32.0); CREATININE 1.3 mg/dL (0.55-1.02); Calcium 9.2 mg/dL (8.5-10.1); Chloride 101 mmol/L (98-107); Estimated GFR 44.51 (mL/min/1.73m2); Ferritin 68 ng/mL (8-252); Glucose 104 mg/dL (74-106); Potassium 3.8 mmol/L (3.5-5.1); Sodium 141 mmol/L (136-145)
[2024-07-17 12:32] LABS: Iron 41 ug/dL (50-170); Total Iron Binding Capacity 414 ug/dL (250-450); Transferrin Sat 10 % (15-50)
== END 2024-07-17 12:41 | disposition home or self-care (01) ==
LOC: LBO 12:42
PROVIDERS: PCP Student in an Organized Health Care Education/Training Program; Visit Provider Nurse Practitioner Family
DX: E87.6 Hypokalemia (principal); K92.2 Gastrointestinal hemorrhage, unspecified; Z86.2 Personal history of diseases of the blood and blood-forming organs and certain disorders involving the immune mechanism
CPT/HCPCS: 36415; 80048; 82728; 83540; 83550; 85025

== ENCOUNTER 2025-01-23 01:42 | Outpatient (CLI) | payer MEDICARE, SELFPAY ==
[2025-01-23 09:41] LABS: Abs Immature Grans 0.06 10^3/uL (0.0-0.06); Absolute Basophil Count 0.04 10^3/uL (0.0-0.2); Absolute Lymphocyte Count 2.37 10^3/uL (1.2-3.4); Absolute Monocyte Count 0.74 10^3/uL (0.1-0.8); Absolute Neutrophil Count 6.13 10^3/uL (1.2-6.7); Basophils % 0.4 %; Eosinophils % 2.1 %; HCT 39.3 % (36.0-46.0); HGB 12.8 g/dL (11.2-15.7); Immature Grans % 0.6 %; Lymphocytes % 24.8 %; MCH 30.8 pg (27.0-33.0); MCHC 32.6 % (32.0-36.0); MCV 95 fL (80-95); MPV 10.5 fL (8.0-11.0); Monocytes % 7.8 %; Neutrophils % 64.3 %; Platelet Count 300 10^3/uL (130-400); RBC 4.15 10^6/uL (3.93-5.22); RDW 14.8 % (11.7-14.6); RDW-SD 51.3 fL; WBC 9.54 10^3/uL (4.4-10.8)
[2025-01-23 09:51] LABS: Hemoglobin A1C 5.9 % (<5.7)
[2025-01-23 10:42] LABS: Total Iron Binding Capacity 358 ug/dL (250-450)
[2025-01-23 10:52] LABS: ALT 22 U/L (14-59); AST 18 U/L (15-37); Albumin 3.2 g/dL (3.4-5.0); Alkaline Phosphatase 96 U/L (46-116); Anion Gap 10.8 mmol/L (3-11); BUN 26 mg/dL (7-18); Bilirubin, Total 0.3 mg/dL (0.2-1.0); CO2 27.2 mmol/L (21.0-32.0); Calcium 9.1 mg/dL (8.5-10.1); Calculated LDL 83 mg/dL (<100); Chloride 103 mmol/L (98-107); Cholesterol 163 mg/dL (<200); Estimated GFR 60.61 (mL/min/1.73m2); Ferritin 103 ng/mL (8-252); Glucose 84 mg/dL (74-106); HDL Cholesterol 47 mg/dL (>or=50); Sodium 141 mmol/L (136-145); Total Protein 7.6 g/dL (6.4-8.2); Triglyceride 167 mg/dL (<150)
== END 2025-01-23 01:43 | disposition home or self-care (01) ==
LOC: LBO 01:43
PROVIDERS: PCP Student in an Organized Health Care Education/Training Program; Visit Provider Nurse Practitioner
DX: E11.9 Type 2 diabetes mellitus without complications (principal); I10 Essential (primary) hypertension; R79.0 Abnormal level of blood mineral; Z68.43 Body mass index [BMI] 50.0-59.9, adult
CPT/HCPCS: 36415; 80053; 80061; 82728; 83036; 83550; 85025

== ENCOUNTER 2025-07-22 09:10 | Outpatient (CLI) | payer MEDICARE, SELFPAY ==
[2025-07-22 10:55] LABS: Uric Acid 5.0 mg/dL (3.1-7.8)
[2025-07-22 10:57] LABS: Ferritin 37 ng/mL (7-271)
[2025-07-22 11:12] LABS: Iron 45 ug/dL (50-170); Total Iron Binding Capacity 385 ug/dL (250-425); Transferrin Sat 12 % (15-50)
[2025-07-23 10:09] LABS: Transferrin 319 mg/dL (201-352)
== END 2025-07-22 09:11 | disposition home or self-care (01) ==
LOC: LBO 09:10
PROVIDERS: PCP Nurse Practitioner Family; Visit Provider Nurse Practitioner Family
DX: R79.0 Abnormal level of blood mineral (principal); Z87.39 Personal history of other diseases of the musculoskeletal system and connective tissue
CPT/HCPCS: 36415; 82728; 83540; 83550; 84466; 84550

== ENCOUNTER → 2025-08-14 01:10 | Outpatient (CLI) | payer MEDICARE, SELFPAY ==
--- NOTE | 2025-08-14 05:45 | DI.CT_ITS ---
Exam(s) CT CHEST WO EXAM: CT CHEST WO CLINICAL HISTORY: Monitoring incidental lung nodule,r91.1. TECHNIQUE: Imaging protocol: Axial computed tomography images were obtained and coronal and sagittal reformatted images were created and reviewed. Computer aided detection (CAD) was utilized. CONTRAST MATERIAL: Noncontrast COMPARISON: CT CT CHEST LUNG CANCER SCREEN from 06/26/2024 FINDINGS: Pulmonary parenchyma: Stable 7 millimeter maximal dimension nodule at the are left lower lobe. Stable 4 millimeter nodule in the right lower lobe. Stable 4 millimeter nodule in the superior segment of the left lower lobe. New pulmonary nodules. No consolidation. No suspicious nodules. Interstitial changes: None. Emphysema: Mild centrilobular emphysematous changes. Tracheobronchial tree: No mucous plugging. No bronchiectasis . Pleura: No effusion or pneumothorax. Heart: The heart is mildly dilated. The coronary arteries show mild calcifications. Aorta: Thoracic aorta non-dilated. Mild atherosclerotic changes. Lymph nodes: No enlarged lymph nodes. Bones: Degenerative changes are seen. No evidence of compression fracture. Upper abdomen: Unremarkable. Soft tissues: Unremarkable. IMPRESSION: Stable pulmonary nodules. Recommend low-dose screening CT in 1 year. RADIATION DOSE DELIVERED: 316.8mGy.cm Total DLP 316.8mGy.cm Total DLP DATA REPOSITORY: All CT scans at this facility are submitted to the National Radiology Data Registry (NRDR) Dose Index Registry (DIR) with the [employer] ([employer]). RADIATION OPTIMIZATION: All CT scans at this facility use at least one of these dose optimization techniques: automated exposure control; mA and/or kV adjustment per patient size (includes targeted exams where dose is matched to clinical indication); or iterative reconstruction.
--- NOTE | 2025-08-14 08:15 | DI.MAMMO_ITS ---
Exam(s) MAMMO SCREENING EXAM: MAMMO SCREENING CLINICAL HISTORY: screening,z12.39 TECHNIQUE: Mammograms were interpreted according to the usual protocol including computer analysis with CAD system, tomosynthesis and C-view imaging. COMPARISON: 2016 through 2021 FINDINGS: The breasts are composed of scattered fibroglandular densities, Breast Density category B. No suspicious masses or suspicious microcalcifications are seen. No skin thickening or abnormal axillary lymph nodes are seen. There has been no significant change from prior exams. IMPRESSION: BI-RADS Category 1, Negative mammogram Yearly screening mammography is recommended. Breast Density - Category B - There are scattered areas of fibroglandular density. Breast density Category C or D implies that the patient has dense breast tissue. Dense breast tissue can make it harder to find cancer on a mammogram. Dense breast tissue is also associated with an increased risk of breast cancer. This information about the result of the mammogram report was provided to the patient to raise their awareness. Use this report when you speak with the patient about their risks for breast cancer, which includes their family history. At that time, you may recommend additional screening tests (Ultrasound or MRI) as these tests may add significant information. A negative radiographic report should not delay biopsy if a dominant or clinically suspicious mass is present. Up to ten percent of cancers are not identified on mammography. A negative report may reinforce clinical impression. Adenosis and dense breasts may obscure an underlying neoplasm. False positive reports average 6 to 10%. Patient will receive a letter notifying them of these results.
== END ==
LOC: DI 01:10
PROVIDERS: PCP Nurse Practitioner Family; Visit Provider Nurse Practitioner Family
DX: Z12.31 Encounter for screening mammogram for malignant neoplasm of breast (principal); R91.1 Solitary pulmonary nodule
CPT/HCPCS: 71250; 77063; 77067